=== PATIENT | male | born 1955 | race Caucasian/White ===

== ENCOUNTER 2022-01-20 22:22 | Emergency (ER) | payer MEDICARE, MEDICAID, SELFPAY ==
--- NOTE | ~2022-01-20 | CT_ITS ---
EXAMINATION: CT ABDOMEN AND PELVIS WITHOUT CONTRAST CLINICAL INFORMATION: Left flank and lower abdominal pain COMPARISON: None TECHNIQUE: Multidetector volumetric imaging was performed from the superior aspect of the liver through the pubic symphysis. Sagittal and coronal reformatted images were obtained on the technologist's workstation. This CT examination was performed using dose optimization techniques as appropriate, variously including the following: *Automated exposure control *Adjustment of mA and/or kV according to patient size (this includes techniques or standardized protocols for targeted exams where dose is matched to indication/reason for exam; i.e. extremities or head) *Use of iterative reconstruction technique DLP: 422 mGy-cm FINDINGS: LUNG BASES: The visualized lung bases are unremarkable. LIVER, GALLBLADDER, AND BILIARY TREE: The liver is normal in size, shape, and attenuation. 3 clustered granulomas are seen near the isacc hepatis. No worrisome focal hepatic lesion or biliary ductal dilatation is present. The gallbladder is unremarkable with no evidence of radiopaque gallstones, gallbladder wall thickening, or obvious pericholecystic inflammatory changes. PANCREAS: Unremarkable. SPLEEN: Unremarkable. ADRENAL GLANDS: Unremarkable. KIDNEYS AND URETERS: The kidneys are normal in size, shape, and attenuation. There is a poorly defined water density cyst in the left mid kidney not well seen because of lack of IV contrast. This should require no further follow-up. No hydronephrosis, hydroureter, or calculi seen. No perinephric stranding. BLADDER: Unremarkable. GASTROINTESTINAL TRACT: The small and large bowel are unremarkable. The appendix is unremarkable. ABDOMINAL WALL: No significant hernia is appreciated. LYMPH NODES: No retroperitoneal lymphadenopathy seen. VASCULAR: Marked calcific plaque present in the abdominal aorta and visualized iliofemoral vessels. Calcified plaque also noted at the origins of both renal arteries. PELVIC VISCERA: Prostate is mildly enlarged measuring between 50 and 60 mL. Seminal vesicles appear normal OSSEOUS STRUCTURES: Unremarkable. Mild degenerative changes present throughout the spine. CT/CT abdomen pelvis wo con IMPRESSION: A cause for the patient's left flank and lower abdominal pain has not been found. Incidental note is made of BPH, left water density renal cyst, hepatic granulomas and atherosclerosis. Fleischner guidelines were followed.
[2022-01-20 22:29] VITALS: BP 153/98; PULSE 65; RESP 18; TEMP 36.9; O2SAT 98; BMI 23.6
[2022-01-20 22:42] LABS: MANUAL DIFF FLAG NO
[2022-01-20 22:43] LABS: Basophils Percent Auto 0.5 % (0-2); Eosinophils Absolute Auto 0.1 X10*3/uL (0.0-0.4); Eosinophils Percent Auto 1.4 % (0-4); Hematocrit 42.8 % (42.0-52.0); Hemoglobin 14.5 g/dl (14.0-18.0); Imm Gran Abs Auto 0.03 X10*3/uL (0.00-0.03); Imm Gran Pct Auto 0.5 % (0.0-0.4); Lymphocytes Percent Auto 31.5 % (20-40); Mean Corpuscular HGB Conc 33.9 g/dl (31.0-36.0); Mean Corpuscular Hemoglobin 32.4 pg (27.0-33.0); Mean Corpuscular Volume 95.5 fL (80.0-98.0); Monocytes Absolute Auto 0.5 X10*3/uL (0.1-1.2); Monocytes Percent Auto 7.9 % (2-11); Neutrophils Absolute Auto 3.6 x10*3/uL (2.0-8.3); Neutrophils Percent Auto 58.2 % (45-73); Platelet Count 162 X10*3/uL (160-400); Red Blood Count 4.48 X10*6/uL (4.60-5.80); Red Cell Distribution Width 12.8 % (11.0-16.0); White Blood Count 6.2 X10*3/uL (4.8-10.8)
[2022-01-20 23:00] LABS: Alanine Aminotransferase 17 U/L (0-40); Albumin Level 4.5 g/dL (3.5-5.0); Alkaline Phosphatase 90 U/L (39-117); Anion Gap 15 (12-20); Aspartate Amino Transferase 29 U/L (5-37); Bilirubin Direct 0.3 mg/dL (0.0-0.5); Bilirubin Total 0.8 mg/dL (0.0-1.0); Blood Urea Nitrogen 12 mg/dL (9-16); Calcium 9.6 mg/dL (8.4-10.2); Carbon Dioxide 27 mmol/L (22-29); Chloride 98 mmol/L (96-108); Creatinine Clr Calc Pharmacy 94.9; Estimated Glomerular Filt Rate > 60; Glucose Random 95 mg/dL (60-115); Lipase 84 U/L (8-78); Potassium 3.9 mmol/L (3.3-5.1); Sodium 136 mmol/L (135-145); Total Protein 7.4 g/dL (6.5-8.0)
--- NOTE | 2022-01-20 23:27 | ED_ITS ---
HPI - Abdominal Pain General Chief Complaint: Abdominal Pain Stated Complaint: left lower abd pain Time Seen by Provider: 01/20/22 23:26 Source: patient Mode of arrival: ambulatory Limitations: no limitations History of Present Illness HPI narrative: left lower abdominal pain starting last night. Feels constipated slightly, no fever at home. No testicular pain, no hematuria. Patient has a history of diverticulitis. MD elicited complaint: abdominal pain Pertinent past history: diverticulitis Onset (ago): day(s) Pain Consistency: constant Location: LLQ and L flank Severity: moderate Quality: sharp Exacerbating factors: movement Associated symptoms: denies other symptoms Related Data Previous Rx's Medication Instructions Recorded naproxen 500 mg tablet (Naprosyn) 500 mg PO BID #20 tab 01/21/22 Allergies Allergy/AdvReac Type Severity Reaction Status Date / Time No Known Allergies Allergy Verified 01/20/22 22:29 Review of Systems Constitutional: Reports no additional constitutional complaints Eyes: Reports no additional eye complaints Denies dizziness Cardiovascular: Reports no additional cardiovascular complaints Respiratory: Reports as per HPI Gastrointestinal: Reports no additional gastrointestinal complaints Musculoskeletal: Reports no additional musculoskeletal complaints Skin/Breast: Denies rash Reports system reviewed and no additional complaints, except as documented, Denies dizziness and Denies Sensory deficit (Neuro) Psychiatric: Denies anxiety [facility] Social History Social History Alcohol intake: current Patient Tobacco Use Status: Former Tobacco user Use of substances other than those prescribed or required for medical reasons: No Advance Directives: No Advance Directives Information Provided: No Physical Exam ED Vital Signs: Vital Signs - 24 hr 01/20/22 22:29 01/21/22 00:55 Temperature 98.4 F Pulse Rate 65 54 Respiratory Rate 18 14 Blood Pressure 153/98 H 162/94 H Pulse Oximetry 98 97 BMI result Body Mass Index 23.6 Const General: healthy appearing Nutritional Appearance: average body habitus Orientation/consciousness: oriented to person and patient oriented x3 Limitations: no limitations HENMT Head: Yes normal to inspection Ears: external ears normal General nose exam: Normal external nose present Mouth: Normal oral and palatal mucosa present and oropharynx normal Throat: Yes posterior oropharynx normal Eyes General: appearance normal, both eyes and all related structures Neck Neck: Yes normal visual inspection Chest Chest palpation & inspection: normal inspection of the chest Resp Auscultation: clear to auscultation bilaterally Cardio Jugular venous distension: no JVD Rate: regular rate Rhythm: regular rhythm Heart sounds: S1 normal heart sound present and S2 normal heart sound present GI Other: no real left lower abdominal pain on palpation Inspection: Yes normal to inspection Palpation (GI): Soft to palpation, nontender and No hepatosplenomegaly present Auscultation: normal bowel sounds General: Yes no CVA tenderness Back/Spine/Pelvis Back: no CVA tenderness Skin General skin exam: no rashes or lesions noted Neuro General: oriented to person and patient oriented x3 Cranial nerves: Yes CN's II-XII intact bilaterally Motor exam (neuro): 5/5 motor strength present throughout Sensory Exam: No Sensory deficit (Neuro) Extrem General: Yes normal to inspection Psych Appearance: grossly normal Course Course Course Narrative: A lot of pain with movement but patient states the pain is coming form inside. I will CT to rule out renal colic and diverticulitis. Reevaluation(s) Reevaluation #1: exam was not consistent with diverticultis, CT negative for diverticulitis and renal colic, labs all normal, will dc on nsaids for pain Time: 01:02 MDM - Abdominal Pain Lab Data Result diagrams: 01/20/22 22:37 01/20/22 22:37 Labs: Lab Results 01/20/22 01/20/22 01/20/22 Range/Units 22:37 22:37 23:47 WBC 6.2 (4.8-10.8) X10*3/uL RBC 4.48 L (4.60-5.80) X10*6/uL Hgb 14.5 (14.0-18.0) g/dl Hct 42.8 (42.0-52.0) % MCV 95.5 (80.0-98.0) fL MCH 32.4 (27.0-33.0) pg MCHC 33.9 (31.0-36.0) g/dl RDW 12.8 (11.0-16.0) % Plt Count 162 (160-400) X10*3/uL MPV 9.0 L (9.4-12.4) fL Immature Gran % (Auto) 0.5 H (0.0-0.4) % Neut % (Auto) 58.2 (45-73) % Lymph % (Auto) 31.5 (20-40) % [place] % (Auto) 7.9 (2-11) % Eos % (Auto) 1.4 (0-4) % Baso % (Auto) 0.5 (0-2) % Lymph # (Auto) 2.0 (1.2-4.9) X10*3/uL [place] # (Auto) 0.5 (0.1-1.2) X10*3/uL Eos # (Auto) 0.1 (0.0-0.4) X10*3/uL Baso # (Auto) 0.0 (0.0-0.2) X10*3/uL Abs Immat Gran (auto) 0.03 (0.00-0.03) X10*3/uL Absolute Neuts (auto) 3.6 (2.0-8.3) x10*3/uL Absolute Nucleated RBC 0.000 (0.0-0.012) X10*3/uL Nucleated RBC % (auto) 0.0 (0.0-0.2) /100WBC Sodium 136 (135-145) mmol/L Potassium 3.9 (3.3-5.1) mmol/L Chloride 98 (96-108) mmol/L Carbon Dioxide 27 (22-29) mmol/L Anion Gap 15 (12-20) BUN 12 (9-16) mg/dL Creatinine 0.79 (0.5-1.4) mg/dL Estim Creat Clear Calc 94.9 Estimated GFR > 60 Random Glucose 95 (60-115) mg/dL Calcium 9.6 (8.4-10.2) mg/dL Total Bilirubin 0.8 (0.0-1.0) mg/dL Direct Bilirubin 0.3 (0.0-0.5) mg/dL AST 29 (5-37) U/L ALT 17 (0-40) U/L Alkaline Phosphatase 90 (39-117) U/L Total Protein 7.4 (6.5-8.0) g/dL Albumin 4.5 (3.5-5.0) g/dL Lipase 84 H (8-78) U/L Urine Color STRAW Urine Appearance CLEAR Urine pH 6.0 (5.0-8.0) Ur Specific [place] <= 1.005 (1.005-1.025) Urine Protein NEG (NEG-TRACE) MG/DL Urine Glucose (UA) NEG (NEG) MG/DL Urine Ketones NEG (NEG) MG/DL Urine Blood NEG (NEG) Urine Nitrite NEG (NEG) Ur Leukocyte Esterase NEG (NEG) Imaging Data CT scan - abdomen: Radiologist's impression: CT/CT abdomen pelvis wo con IMPRESSION: A cause for the patient's left flank and lower abdominal pain has not been found. Incidental note is made of BPH, left water density renal cyst, hepatic granulomas and atherosclerosis. ? Fleischner guidelines were followed. Discharge Plan Discharge Clinical Impression: Abdominal pain Patient Disposition: Home, Self-Care Instructions: Abdominal Pain (ED) Prescriptions: New naproxen [Naprosyn] 500 mg tablet 500 mg PO BID Qty: 20 0RF Referrals: Narda Morris PA [Primary Care Provider] - 1 week
[2022-01-20 23:52] LABS: Appearance Urine CLEAR; Color Urine STRAW; Glucose Urine UA NEG (NEG); Leukocyte Esterase Urine NEG (NEG); Nitrite Urine NEG (NEG); Specific Gravity - Urine <= 1.005 (1.005-1.025); Urine Blood NEG (NEG); Urine Ketones NEG (NEG); Urine Protein NEG (NEG-TRACE)
[2022-01-21] MEDS: Ketorolac Tromethamine 30 MG/ML VIAL IVPUSH (00:16)
[2022-01-21] MEDS: 0.9 % Sodium Chloride 1,000 ML 999 ML IVCONT (00:17)
[2022-01-21 00:55] VITALS: BP 162/94; PULSE 54; RESP 14; O2SAT 97
--- NOTE | 2022-01-21 05:24 | PC.NURSE ---
see downtime chart for further nursing notes/VS/meds/times
== END 2022-01-21 05:41 | disposition home or self-care (01) ==
PROVIDERS: Emergency Provider Emergency Medicine; PCP Physician Assistant
DX: R10.9 Unspecified abdominal pain (principal); R93.5 Abnormal findings on diagnostic imaging of other abdominal regions, including retroperitoneum; N40.0 Benign prostatic hyperplasia without lower urinary tract symptoms; Q61.01 Congenital single renal cyst; K75.3 Granulomatous hepatitis, not elsewhere classified; I70.1 Atherosclerosis of renal artery; Z87.891 Personal history of nicotine dependence
CPT/HCPCS: 36415; 74176; 80048; 80076; 81003; 83690; 85025; 96361; 96374; 99284; 99285; J1885

== ENCOUNTER 2023-01-26 12:36 | Inpatient (IN) | payer MEDICARE, MEDICAID, SELFPAY ==
--- NOTE | ~2023-01-26 | CT_ITS ---
EXAMINATION: CT HEAD WITHOUT CONTRAST (STROKE PROTOCOL) CLINICAL INFORMATION: Stroke protocol. Some left-sided extremity symptoms and asphasia. COMPARISON: None TECHNIQUE: Contiguous axial imaging was performed from the skull base to vertex without intravenous administration of contrast. Additional 2-D coronal and sagittal reformatted images are generated on the CT workstation and uploaded to PACS. This CT examination was performed using dose optimization techniques as appropriate, variously including the following: *Automated exposure control *Adjustment of mA and/or kV according to patient size (this includes techniques or standardized protocols for targeted exams where dose is matched to indication/reason for exam; i.e. extremities or head) *Use of iterative reconstruction technique DLP: 719 mGy-cm FINDINGS: There is no intracranial hemorrhage, hematoma, or extra-axial fluid collection. There are mild generalized atrophic changes with prominence of the cortical sulci and fissures and cisterns. The ventricles are normal in size and there is no hydrocephalus. The kam-white matter differentiation appears well preserved . There is a small cystic lacunar infarct left caudate head and mid left basal ganglia without associated surrounding edema or mass effect. Some focal peripheral encephalomalacia is present inferior right frontal region. There is no visible acute territorial infarct or mass lesion. The calvarium appears intact. There is no pneumocephalus or orbital emphysema. There is some mucosal thickening in the posterior maxillary sinuses, greater on right. The middle ears and mastoids are clear. Results called and discussed with Dr. Benoit in the emergency department [place] [address]/CT head for stroke IMPRESSION: 1. No intracranial hemorrhage, edema, or mass effect. 2. Small cystic lacunar infarct left caudate head and mid left basal ganglia. 3. Small focal encephalomalacia inferior right frontal region.
--- NOTE | ~2023-01-26 | MR_ITS ---
EXAMINATION: MR BRAIN WITHOUT CONTRAST CLINICAL INFORMATION: Transient ischemic attack. COMPARISON: CTA head and neck from 01/26/2023. TECHNIQUE: MRI of the brain was obtained using routine sequences without contrast. FINDINGS: No focal restricted diffusion is demonstrated to suggest acute or subacute cerebral ischemia. No evidence of acute or chronic hemorrhagic products on heme-sensitive imaging. Scattered and partially confluent periventricular, deep white matter, and brainstem T2 FLAIR hyperintensities consistent with moderate underlying microangiopathy. Chronic lacunar infarcts of the left caudate body, left lentiform nucleus, and right thalamus. Proportional prominence of the ventricles and sulcal spaces without evidence of obstructive hydrocephalus. No abnormal mass effect. No midline shift. Normal appearance of the pituitary gland. Normal positioning of the cerebellar tonsils. Normal arterial and venous vascular flow voids are present. Normal, homogeneous marrow signal. Mild mucosal thickening of the paranasal sinuses. No signal abnormalities within the mastoids. MR/MR head/brain wo con IMPRESSION: 1. No acute intracranial abnormalities. 2. Moderate underlying microangiopathy and generalized cerebral volume loss. Chronic lacunar infarcts of the deep nuclei.
--- NOTE | ~2023-01-26 | XR_ITS ---
EXAMINATION: XR CHEST CLINICAL INFORMATION: Stroke COMPARISON: None. TECHNIQUE: Portable upright AP view of the chest was obtained. FINDINGS: Lungs clear. No airspace consolidation or effusion. Heart size normal. Vascularity normal. Costophrenic sulci are clear. Hilar and mediastinal contours are unremarkable. There are multilevel degenerative changes thoracic spine. Degenerative changes acromioclavicular joints and shoulders. Calcific tendinosis in region of distal infraspinatus right shoulder. XR/XR chest 1V IMPRESSION: Lungs clear. No acute intrathoracic disease.
--- NOTE | ~2023-01-26 | CT_ITS ---
EXAMINATION: CT angio head neck stroke CLINICAL INFORMATION: Stroke. COMPARISON: CT head 01/26/2023 TECHNIQUE: Laboratory Inspector images were obtained. A CT angiogram of the head and neck was performed in the arterial phase after the intravenous administration of 70 mL Omnipaque 350. Pre and delayed postcontrast images of the head were also obtained. MIP reconstructions were generated in multiple orientations at the acquisition workstation. Multiple three-dimensional surface rendered images and maximum intensity projection images were generated on a dedicated 3-D lab workstation. Arterial stenoses are measured in accordance with NASCET criteria or similar method if applicable. This CT examination was performed using dose optimization techniques as appropriate, including one or more of the following: Automated exposure control, iterative reconstruction, and adjustment of technique factors (mA and/or kVp) according to patient size (this includes techniques or standardized protocols for targeted exams where dose is matched to indication/reason for exam). Fleischner Society criteria for the followup of incidental pulmonary nodules was implemented if appropriate. Total exam dose-length product 1596 mGy-cm FINDINGS: Head: There is a small chronic cortical infarct involving the undersurface of the right frontal lobe and a few small chronic lacunar infarcts involving the basal ganglia. Scattered chronic small vessel ischemic changes are also visualized within the periventricular white matter. Cabrera-white matter differentiation is otherwise preserved and there is no evidence of acute territorial infarct or hemorrhage. No intracranial mass effect or midline shift. No hydrocephalus. The calvarium and skull base are intact. There is a small volume of layering fluid within the right maxillary sinus. CT angiogram neck: Scattered atheromatous calcification involves the aortic arch apex. Origins of the major aortic branches are widely patent. Common carotid arteries are patent. Heavily calcified atheromatous plaque involves both carotid bifurcations. There is 80% stenosis at the origin of the right internal carotid artery. No stenosis of the left extra cranial internal carotid artery. Partially calcified plaque causes high-grade focal narrowing at the origin of the dominant left vertebral artery. Scattered foci of calcified eccentric plaque causes mild irregular narrowing along the V2 segments of both vertebral arteries. CT angiogram head: Scattered atheromatous calcification causes mild to moderate narrowing of the supraclinoid segments of both internal carotid arteries, greater on the left. There is also mild irregular narrowing of the intradural segments of both vertebral arteries. Basilar artery is normal. Anterior, middle, and posterior cerebral complexes are normal. No intracranial large vessel occlusion. Other: Soft tissues of the neck including the thyroid gland are normal. Grossly no pathologically enlarged cervical lymph nodes. There is no acute osseous finding. Specifically no worrisome lytic or blastic osseous lesion. There is advanced multilevel degenerative spondylosis of the cervical spine and there are multiple exuberant anterior disc osteophyte complexes at multiple levels. The C1 and C2 vertebral segments are chronically fused. CT/CT angio head neck stroke IMPRESSION: Heavily calcified atheromatous plaque involves both carotid bifurcations. There is 80% stenosis at the origin of the right internal carotid artery. No stenosis of the left extracranial internal carotid artery. Partially calcified plaque causes high-grade focal narrowing at the origin of the dominant left vertebral artery. Scattered foci of eccentric calcified plaque causes mild irregular narrowing along the V2 segments of both vertebral arteries. There is also mild to moderate irregular narrowing of the supraclinoid segments of both internal carotid arteries, greater on the left. Mild irregular narrowing of the intradural segments of both vertebral arteries. No intracranial large vessel occlusion. There is a small chronic cortical infarct involving the undersurface of the right frontal lobe and a few small chronic lacunar infarcts involving the basal ganglia. Scattered chronic small vessel ischemic changes are also visualized within the periventricular white matter. No evidence of acute territorial infarct or hemorrhage. No abnormal intracranial mass or enhancement. This critical result was discussed with Dr. Benoit at 1:09 PM on 01/26/2023 and it was ascertained that the content and urgency of the report was understood at the time of direct communication.
[2023-01-26 12:46] LABS: Prothrombin Time Whole Bld POC 12.7 sec (11.1-13.5); ~PT, ~INR - Anti Coag Clinic 1.1 (0.9-1.1)
[2023-01-26 12:49] LABS: Glucose, Whole Blood 100 mg/dL (60-115)
--- NOTE | 2023-01-26 12:57 | ECG_ITS ---
Test Reason : STROKE Blood Pressure : / mmHG Vent. Rate : 086 BPM Atrial Rate : 086 BPM P-R Int : 214 ms QRS Dur : 090 ms QT Int : 394 ms P-R-T Axes : 070 050 066 degrees QTc Int : 471 ms Sinus rhythm with 1st degree A-V block Otherwise normal ECG When compared with ECG of 01-JAN-2006 12:31, AK interval has increased Referred By: Senthil Benoit Electronically Signed By:SHEREEN TERRY MD
--- NOTE | 2023-01-26 12:58 | ED_ITS ---
HPI - Syncope General Chief Complaint: Neuro Symptoms/Deficit Stated Complaint: Stroke alert per EMS Time Seen by Provider: 01/26/23 12:56 Source: patient and EMS History of Present Illness HPI narrative: Patient complaining of left arm and leg weakness and numbness sensation. He also complains of some mild difficulty speaking. He noticed the symptoms this morning at 09:30 when he went to get out of bed to go to take shower. Last known well time was approximately 02:00 when he got up to go to the bathroom and stated he was asymptomatic. It is currently 12:50, making last known well time almost 11 hours. No prior history of stroke. He denies any pain. Has a history of a concussion from a fall a few months ago but denies any neurologic deficit from this. Related Data Previous Rx's Medication Instructions Recorded naproxen 500 mg tablet (Naprosyn) 500 mg PO BID #20 tabs 01/21/22 Allergies Allergy/AdvReac Type Severity Reaction Status Date / Time No Known Allergies Allergy Verified 01/20/22 22:29 Review of Systems Constitutional: Comments: Focal weakness as described. No fevers or chills Cardiovascular: Comments: No chest pain or palpitations Respiratory: Comments: No dyspnea or cough Gastrointestinal: Comments: No abdominal pain or nausea or vomiting Musculoskeletal: Comments: No neck back or extremity pain Integumentary/Breasts: Comments: No rash Neurologic: Comments: Left-sided numbness and subjective weakness as described [facility] Social History Social History Alcohol intake: current Patient Tobacco Use Status: Former Tobacco user Advance Directives: No Advance Directives Information Provided: Yes Physical Exam Vital Signs: Vital Signs: Last Vital Signs Temp 97.8 F 01/26/23 13:19 Pulse 79 01/26/23 13:19 Resp 22 H 01/26/23 13:19 BP 188/95 H 01/26/23 13:19 Pulse Ox 97 01/26/23 13:19 O2 Del Method 01/26/23 13:19 BMI result Body Mass Index 26.4 Const: Other: Awake alert. No acute distress HEENT: Other: Normocephalic atraumatic Resp: Other: No respiratory distress. Clear and equal bilaterally GI: Other: Soft nontender nondistended. No pulsatile masses Skin: Other: Warm pink and dry without obvious rash Neuro: Other: No obvious left-sided weakness. He is able to hold his arm out straight without an obvious pronator drift. He is able to lift his left leg off the stretcher without difficulty. He describes subjective weakness however Extrem: Other: No obvious extremity trauma NIH Stroke Scale Internal: Initial- Upon Arrival Time: 13:27 Level of Consciousness: Alert Level of Consciousness Questions: Answers both questions correctly Level of Consciousness Commands: Performs both tasks correctly Best Gaze: Normal Visual: No visual loss Facial Palsy: Normal Motor Arm (Right): No drift Motor Arm (Left): No drift Motor Leg (Right): No drift Motor Leg (Left): No drift Limb Ataxia: Absent Sensory: Normal Best Language: No aphasia Dysarthia: Normal Extinction and Inattention: No abnormality Score: 0 Medications Administered Discontinued Medications Generic Name Dose Route Start Last Admin Trade Name Li PRN Reason Stop Dose Admin Iohexol 100 ml 01/26/23 13:11 01/26/23 13:12 Iohexol 350 Mg/Ml 100 Ml Infus..Btl IV 01/26/23 13:12 70 ml ONCE ONE Administration Medical Decision Making Medical Decision Making MDM Narrative: Patient with left-sided paresthesias and subjective weakness. Differential includes stroke versus intracranial hemorrhage versus peripheral neuropathy. Last known well time was approximately 11 hours prior to arrival. He is not a candidate for thrombolytics therapy but is potentially candidate for endovascular therapy if he has large vessel occlusion. Patient will receive CT scan with without IV contrast. 13:12. CT scan of brain and CT angiography of head and neck show no obvious large vess el occlusions. Patient is out of window for thrombolytics therapy. Await remainder of workup and anticipate hospitalization for further workup including neuro consult and MRI 13:25. Official CT report, angiography, shows multiple areas of stenosis without actionable occlusion. Stroke score is negligible from an objective standpoint, but patient is still subjectively weak and is having increased difficulty ambulating. Continue with current plan 14:07. Neurology in to see patient. Agree with plan. No acute intervention at this time. Patient reports daily alcohol use approximately a pt of hard alcohol. Will add thiamine and folate treatment as well as aspirin. Lab work is unremarkable Will hospitalize for diagnosis of stroke Lab Data 01/26/23 13:34 01/26/23 13:34 Labs: Lab Results 01/26/23 01/26/23 01/26/23 Range/Units 12:41 12:41 13:34 WBC 6.2 (4.8-10.8) X10*3/uL RBC 4.32 L (4.60-5.80) X10*6/uL Hgb 13.9 L (14.0-18.0) g/dl Hct 41.4 L (42.0-52.0) % MCV 95.8 (80.0-98.0) fL MCH 32.2 (27.0-33.0) pg MCHC 33.6 (31.0-36.0) g/dl RDW 12.3 (11.0-16.0) % Plt Count 202 (160-400) X10*3/uL MPV 8.6 L (9.4-12.4) fL Immature Gran % (Auto) 0.5 H (0.0-0.4) % Neut % (Auto) 77.4 H (45-73) % Lymph % (Auto) 11.7 L (20-40) % [place] % (Auto) 8.5 (2-11) % Eos % (Auto) 1.4 (0-4) % Baso % (Auto) 0.5 (0-2) % Lymph # (Auto) 0.7 L (1.2-4.9) X10*3/uL [place] # (Auto) 0.5 (0.1-1.2) X10*3/uL Eos # (Auto) 0.1 (0.0-0.4) X10*3/uL Baso # (Auto) 0.0 (0.0-0.2) X10*3/uL Abs Immat Gran (auto) 0.03 (0.00-0.03) X10*3/uL Absolute Neuts (auto) 4.8 (2.0-8.3) x10*3/uL Absolute Nucleated RBC 0.000 (0.0-0.012) X10*3/uL Nucleated RBC % (auto) 0.0 (0.0-0.2) /100WBC Whole Blood PT 12.7 (11.1-13.5) sec Whole Blood INR 1.1 (0.9-1.1) Sodium (135-145) mmol/L Potassium (3.3-5.1) mmol/L Chloride (96-108) mmol/L Carbon Dioxide (22-29) mmol/L Anion Gap (12-20) BUN (9-16) mg/dL Creatinine (0.5-1.4) mg/dL Estim Creat Clear Calc Estimated GFR POC Glucose 100 (60-115) mg/dL Random Glucose (60-115) mg/dL Calcium (8.4-10.2) mg/dL Total Bilirubin (0.0-1.0) mg/dL AST (5-37) U/L ALT (0-40) U/L Alkaline Phosphatase (39-117) U/L Total Protein (6.5-8.0) g/dL Albumin (3.5-5.0) g/dL COVID-19 ([facility]ARISSA) (Negative) COVID-19 Clin Com 01/26/23 01/26/23 Range/Units 13:34 13:34 WBC (4.8-10.8) X10*3/uL RBC (4.60-5.80) X10*6/uL Hgb (14.0-18.0) g/dl Hct (42.0-52.0) % MCV (80.0-98.0) fL MCH (27.0-33.0) pg MCHC (31.0-36.0) g/dl RDW (11.0-16.0) % Plt Count (160-400) X10*3/uL MPV (9.4-12.4) fL Immature Gran % (Auto) (0.0-0.4) % Neut % (Auto) (45-73) % Lymph % (Auto) (20-40) % [place] % (Auto) (2-11) % Eos % (Auto) (0-4) % Baso % (Auto) (0-2) % Lymph # (Auto) (1.2-4.9) X10*3/uL [place] # (Auto) (0.1-1.2) X10*3/uL Eos # (Auto) (0.0-0.4) X10*3/uL Baso # (Auto) (0.0-0.2) X10*3/uL Abs Immat Gran (auto) (0.00-0.03) X10*3/uL Absolute Neuts (auto) (2.0-8.3) x10*3/uL Absolute Nucleated RBC (0.0-0.012) X10*3/uL Nucleated RBC % (auto) (0.0-0.2) /100WBC Whole Blood PT (11.1-13.5) sec Whole Blood INR (0.9-1.1) Sodium 138 (135-145) mmol/L Potassium 4.3 (3.3-5.1) mmol/L Chloride 100 (96-108) mmol/L Carbon Dioxide 30 H (22-29) mmol/L Anion Gap 12 (12-20) BUN 19 H (9-16) mg/dL Creatinine 0.82 (0.5-1.4) mg/dL Estim Creat Clear Calc 95.9 Estimated GFR > 60 POC Glucose (60-115) mg/dL Random Glucose 92 (60-115) mg/dL Calcium 9.2 (8.4-10.2) mg/dL Total Bilirubin 1.7 H (0.0-1.0) mg/dL AST 31 (5-37) U/L ALT 27 (0-40) U/L Alkaline Phosphatase 102 (39-117) U/L Total Protein 7.3 (6.5-8.0) g/dL Albumin 4.4 (3.5-5.0) g/dL COVID-19 (KARISSA) Negative (Negative) COVID-19 Clin Com See Note Critical Care Time Critical Care Time Critical Care Time: Yes Total Critical Care Time: 60 Attestation: Patient with stroke in thrombolytics consideration as well as potential endovascular consideration. Discharge Plan Discharge Patient Disposition: Admitted As Inpatient Prescriptions: No Action naproxen [Naprosyn] 500 mg tablet 500 mg PO BID Qty: 20 0RF
[2023-01-26] MEDS: iohexoL 350 MG/ML 100 ML INFUS..BTL IV (13:12)
[2023-01-26 13:19] VITALS: BP 188/95; PULSE 79; RESP 22; TEMP 36.6; O2SAT 97; BMI 26.4
[2023-01-26 13:39] LABS: MANUAL DIFF FLAG NO
[2023-01-26 13:41] LABS: Basophils Percent Auto 0.5 % (0-2); Eosinophils Absolute Auto 0.1 X10*3/uL (0.0-0.4); Eosinophils Percent Auto 1.4 % (0-4); Hematocrit 41.4 % (42.0-52.0); Hemoglobin 13.9 g/dl (14.0-18.0); Imm Gran Abs Auto 0.03 X10*3/uL (0.00-0.03); Imm Gran Pct Auto 0.5 % (0.0-0.4); Lymphocytes Absolute Auto 0.7 X10*3/uL (1.2-4.9); Lymphocytes Percent Auto 11.7 % (20-40); Mean Corpuscular HGB Conc 33.6 g/dl (31.0-36.0); Mean Corpuscular Hemoglobin 32.2 pg (27.0-33.0); Mean Corpuscular Volume 95.8 fL (80.0-98.0); Mean Platelet Volume 8.6 fL (9.4-12.4); Monocytes Absolute Auto 0.5 X10*3/uL (0.1-1.2); Monocytes Percent Auto 8.5 % (2-11); Neutrophils Absolute Auto 4.8 x10*3/uL (2.0-8.3); Neutrophils Percent Auto 77.4 % (45-73); Platelet Count 202 X10*3/uL (160-400); Red Blood Count 4.32 X10*6/uL (4.60-5.80); Red Cell Distribution Width 12.3 % (11.0-16.0); White Blood Count 6.2 X10*3/uL (4.8-10.8)
[2023-01-26 13:56] LABS: Alanine Aminotransferase 27 U/L (0-40); Albumin Level 4.4 g/dL (3.5-5.0); Alkaline Phosphatase 102 U/L (39-117); Anion Gap 12 (12-20); Aspartate Amino Transferase 31 U/L (5-37); Bilirubin Total 1.7 mg/dL (0.0-1.0); Blood Urea Nitrogen 19 mg/dL (9-16); Calcium 9.2 mg/dL (8.4-10.2); Carbon Dioxide 30 mmol/L (22-29); Chloride 100 mmol/L (96-108); Creatinine Clr Calc Pharmacy 95.9; Estimated Glomerular Filt Rate > 60; Glucose Random 92 mg/dL (60-115); Potassium 4.3 mmol/L (3.3-5.1); Sodium 138 mmol/L (135-145); Total Protein 7.3 g/dL (6.5-8.0)
[2023-01-26 13:59] LABS: COVID-19 Test Negative (Negative); IDNOW Serial# BCCEAD1C
--- NOTE | 2023-01-26 14:15 | P.CNNE_ITS ---
History of Present Illness Data of Consult Service Date: 01/26/23 Primary Care Provider: ESTHER Cornejo HPI Reason for consult: Dizziness 67 years old man with hypertension who came to hospital with new onset of dizziness and unsteadiness. This started many hours ago. He was considered an acute stroke patient but because of significant time delay he was not considered a candidate for intravenous tPA. Otherwise CTA and CT was done to look at any possible arterial lesion. I saw him in emergency room. He was complaining of abdominal discomfort and nausea. Review of Systems Review of Systems: No recent cold or flu-like illness PMFSH Social History Social History Alcohol intake: current Patient Tobacco Use Status: Former Tobacco user Advance Directives: No Advance Directives Information Provided: Yes Meds Allergies Allergy/AdvReac Type Severity Reaction Status Date / Time No Known Allergies Allergy Verified 01/20/22 22:29 Physical Exam Vital Signs: Vital Signs: Last Vital Signs Temp 97.8 F 01/26/23 13:19 Pulse 79 01/26/23 13:19 Resp 22 H 01/26/23 13:19 BP 188/95 H 01/26/23 13:19 Pulse Ox 97 01/26/23 13:19 O2 Del Method 01/26/23 13:19 BMI result Body Mass Index 26.4 Neuro: Other: He is alert and awake with normal spontaneity of speech fluency comprehension and affect. He is able to name and repeat and read. Face is symmetrical. Visual gunter are full. There is no pronator drift. [id number] is okay. Deep tendon reflexes are trace to absent with flexor plantars. When asked to get out of bed, he felt uncomfortable and could barely stand stating that he was unsteady and his belly was uncomfortable causing nausea. Results Labs 01/26/23 13:34 01/26/23 13:34 Labs: Short CBC 01/26/23 Range/Units 13:34 WBC 6.2 (4.8-10.8) X10*3/uL Hgb 13.9 L (14.0-18.0) g/dl Hct 41.4 L (42.0-52.0) % Plt Count 202 (160-400) X10*3/uL BMP 01/26/23 13:34 Sodium 138 Potassium 4.3 Chloride 100 Carbon Dioxide 30 H BUN 19 H Creatinine 0.82 Calcium 9.2 Liver Function 01/26/23 Range/Units 13:34 Total Bilirubin 1.7 H (0.0-1.0) mg/dL AST 31 (5-37) U/L ALT 27 (0-40) U/L Alkaline Phosphatase 102 (39-117) U/L Albumin 4.4 (3.5-5.0) g/dL Microbiology Microbiology Results: Heavily calcified atheromatous plaque involves both carotid bifurcations. There is 80% stenosis at the origin of the right internal carotid artery. No stenosis of the left extracranial internal carotid artery. Partially calcified plaque causes high-grade focal narrowing at the origin of the dominant left vertebral artery. Scattered foci of eccentric calcified plaque causes mild irregular narrowing along the V2 segments of both vertebral arteries. There is also mild to moderate irregular narrowing of the supraclinoid segments of both internal carotid arteries, greater on the left. Mild irregular narrowing of the intradural segments of both vertebral arteries. No intracranial large vessel occlusion. There is a small chronic cortical infarct involving the undersurface of the right frontal lobe and a few small chronic lacunar infarcts involving the basal ganglia. Scattered chronic small vessel ischemic changes are also visualized within the periventricular white matter. No evidence of acute territorial infarct or hemorrhage. No abnormal intracranial mass or enhancement. Assessment and Plan (1) Dizziness: Status: Acute 67 years old man with hypertension and probably also alcohol use who came to [facility] with new onset of unsteadiness dizziness in abdominal discomfort. Really etiology was unclear. At this time my recommendation is to treat him with thiamine and folate and have a noncontrast MRI of brain to rule out stroke. As far as right carotid disease is concerned, it requires medical treatment, not surgical. Blood pressure controlled, anti-platelet agent, and statins are recommended (2) Right-sided extracranial carotid artery stenosis: Status: Acute Time Spent With Patient Time: Total time managing care of this patient today ____ minutes. Procedures Date of Service Date of Service: 01/26/23
[2023-01-26] MEDS: Ondansetron ODT 4 MG TAB.RAPDIS TRANSLINGU (14:17)
[2023-01-26] MEDS: Aspirin Enteric Coated 325 MG TABLET.DR PO (14:17)
[2023-01-26] MEDS: Folic Acid 1 MG TABLET PO (14:17)
[2023-01-26] MEDS: Thiamine HCL 100 MG TABLET PO (14:17)
--- NOTE | 2023-01-26 14:17 | MHC.STROKE ---
Addendum entered by Terese Sorto RN 01/27/23 14:33: 01/27/23 1330 I MET WITH THE PATIENT AND HIS SON RANDELL TO PROVIDE STROKE EDUCATION AND REVIEW HIS MRI SCREENSHOT AND DIAGNOSIS. DR. CORREA REVIEWED THE MRI AND PUT IN AN ADDENDUM, RIGHT PONTINE ISCHEMIC STROKE. SEE HIS NOTE. I EXPLAINED THIS TO THE PATIENT AND SON, I REVIEWED THE LOCATION OF THE STROKE ON THE MRI IMAGE AND CORRELATING SYMPTOMS. HE HAS HAD UNCONTROLLED HYPERTENSION AND I DISCUSSED AT LENGTH HOW THAT AFFECTS THE BLOOD VESSELS, WE REVIEWED HIS INDIVIDUAL RISK FACTORS, HTN, SMOKING, HYPERLIPIDEMIA, CAROTID STENOSIS. AND WHY HE NEED TO TAKE HIS MEDICATIONS AND FOLLOW UP WITH HIS PCP AND VASCULAR SURGEON. I REVIEWED PICTURES AND DIAGRAMS OF THE BRAIN AND CAROTID. WE REVIEWED SMOKING CESSATION OPTIONS BUT HE DIDN'T WANT THE NICOTINE PATCH, I ENCOURAGED HIM TO TAKE ALL THE RESOURCES HE CAN. WE REVIEWED CALLING 911 IF SYMPTOMS REOCCUR, HOW HYPOTENSION OR HYPERTENSION AFFECTS HIS SYMPTOMS. I ANSWERED ALL OF THEIR QUESTIONS. I REVIEWED THIS WITH THE RN, BOX PRINTING MACHINE OPERATOR MIRNA AND ESTHER VICKERS. HIS SON LIVES IN [facility]. AND THEY WOULD LIKE TO GO TO [place]. I DID EXPLAIN THAT HE WOULD NEED SNEAKERS, AND CLOTHES, REHAB WILL GIVE HIM THE BEST RECOVERY OPTIONS. Original Note: 1232 [facility] CALLED IN STROKE ALERT LEFT SIDED NUMB/WEAK, SLURRED SPEECH DISCOVERED AT 09:30, ARRIVED AT [facility] 1236, STAT CT, CTA DIRECT TO CT ON EMS STRETCHER. 1256 EXAMINED BY PROVIDER, CARO 0200, DISCOVERY OF SYMPTOMS 09:30, NIHSS = 0. SEE ED PROVIDER NOTE, CT DONE 1247, READ 1303 NO BLEED, OLD PRIOR STROKES, CTA H/N DONE 1252, READ AT 1309, NO LVO, HIGH GRADE STENOSIS LEFT VERTEBRAL, DIPAK CAROTID RIGHT ICA 80%, SEE RADIOLOGY REPORT. I ALSO MET WITH THE PATIENT ALONG WITH NEUROLOGIST DR. CORREA, LEFT HANDED (RIGHT SIDE DOMINATE), SPEECH IMPROVED, NO DEFICIT PASSED NURSING SWALLOW SCREEN I UPDATED MICHELLE BANKS, C/O LEFT SIDED NUMBNESS AND SLIGHT DECREASED STRENGTH. HE WAS ABLE TO SIT UP ON EDGE OF THE STRETCHER BUT OFF BALANCE, ATAXIA WHEN STANDING, TOO OFF BALANCE TO WALK, HE IS HYPERTENSIVE, HE DOES NOT TAKE ANY MEDICATIONS, HE SMOKES DAILY, + ETOH ADMITS TO A PINT OF HARD LIQUOR DAILY. DR. CORREA AGREES WITH NO THROMBOLYTICS, UNCLEAR ONSET TIME, DELAY IN ARRIVAL. HE ALSO SAID HE FELL AND HIT HIS HEAD RECENTLY AND HAD A CONCUSSION, HE DID NOT SEEK MEDICAL ATTENTION. HE ALSO HAD A SERIOUS FALL IN [place] 11 YEARS AGO AND WAS HOSPITALIZED WITH A HEAD INJURY AND REQUIRED STITCHES. HIS EX- AND FRIEND CAME TO SEE HIM. I INITIATED STROKE EDUCATION, REVIEWED THE PLAN OF CARE WITH HIM, ANSWERED ALL OF HIS QUESTIONS. REVIEWING TIMELINE AND HE SAID HE GOT UP AT 0200 AND WAS FINE, THEN WENT BACK TO BED, HE WOKE AT 0700 AND THOUGHT HE FELT OK, HE DECIDED TO TAKE A SHOWER HAD HAD DIFFICULTY GETTING INTO THE SHOWER AND COULDN'T MANIPULATE HIS LEFT SIDE. DR. CORREA AND I ARE RECOMMENDING ADMISSION WITH SALES PERFORMANCE MANAGER, ASPIRIN, THIAMINE, FOLATE NOW (MESSAGE SENT TO DR. MOYA), MRI, ECHO, STATIN, ASPIRIN, VTE PROPHYLAXIS, PT, OT, ETOH COUNSELING AND SMOKING CESSATION EDUCATION AND NICOTINE PATCH IF INDICATED. I RICARDO CONTINUE TO FOLLOW.
--- NOTE | 2023-01-26 14:56 | PHA.MEDREC ---
Pharmacy Consult ? Medication Reconciliation Pharmacy has completed the medication reconciliation. Patient confirmed medications. Reports usually takes gabapentin every night and takes it through out the day on occasion to help get relaxed Faith Gutierrez, DarellD
--- NOTE | 2023-01-26 15:18 | P.HPHOSP_ITS ---
History of Present Illness Date of Service: 01/26/23 Chief Complaint: weakness 67-year-old man presenting to the ER with left upper lower extremity weakness and numbness and mild speech difficulties that were noted at 09:30 this morning when he got out of bed. Reports that his last known well time was at 02:00 when he got out of bed to go to the bathroom. Patient denied chest pain, shortness breath, nausea, vomiting, diarrhea, recent travel, sick contacts. Because patient was 11 hours past known well time he was not a candidate for tPA. In the ER, labs all noted to be within acceptable limits, elevated blood pressure readings noted. Head and neck CTA completed, 80% stenosis of the right internal carotid artery noted with small chronic cortical infarctions with no evidence of acute infarct or hemorrhage. He was given a dose of aspirin, Zofran, thiamine, folic acid in the ER. He will be placed on observation for TIA. Review of Systems Review of Systems: Denies any recent fever chills or decrease in appetite respiratory denies any shortness of breath coverage production cardiovascular is adjustment of any PND or edema gastrointestinal denies any dysphagia abdominal pain nausea vomiting or diarrhe a genitourinary denies any dysuria frequency or hematuria musculoskeletal denies any joint pain or swelling neuropsych denies any weakness or seizures all other systems reviewed are negative [facility] Medical History (Updated 01/26/23 @ 15:40 by Chandler Smalls) No known health problems Social History Alcohol intake: current Alcohol intake frequency: 0-2 drinks per day Alcohol type: hard liquor Patient Tobacco Use Status: Current everyday Tobacco user Smoked in Last 30 Days: Yes Use of substances other than those prescribed or required for medical reasons: Yes Substance Use Type: Marijuana Advance Directives: No Advance Directives Information Provided: Yes Nutrition Risks: No Nutritional Risk Meds Allergies Allergy/AdvReac Type Severity Reaction Status Date / Time No Known Allergies Allergy Verified 01/20/22 22:29 Active Medications: Current Medications Acetaminophen (Acetaminophen 325 Mg Tablet) 650 mg PO Q6H PRN PRN Reason: Pain, Mild (Pain Scale 1-3) Ondansetron HCl (Ondansetron Hcl 4 Mg/2 Ml Vial) 4 mg IVPUSH Q8H PRN PRN Reason: Nausea and Vomiting Sodium Chloride (0.9 % Sodium Chloride Flush 3 Ml Syringe) 3 ml IVFSH QSHIFT TRACEY Home Medications Medication Instructions Recorded Confirmed Last Taken Type gabapentin 800 mg tablet 1 tab PO BEDTIME 01/26/23 01/26/23 01/25/23 History gabapentin 800 mg tablet 1 tab PO BID@0900,1200 PRN Anxiety 01/26/23 01/26/23 01/25/23 History Physical Exam Vital Signs and Narrative: Vital Signs: Last Vital Signs Temp 97.8 F 01/26/23 13:19 Pulse 79 01/26/23 13:19 Resp 22 H 01/26/23 13:19 BP 188/95 H 01/26/23 13:19 Pulse Ox 97 01/26/23 13:19 O2 Del Method 01/26/23 13:19 BMI result Body Mass Index 26.4 Results Labs 01/26/23 13:34 01/26/23 13:34 Labs: Laboratory Results - last 24 hr 01/26/23 01/26/23 01/26/23 12:41 12:41 13:34 MCV 95.8 MCH 32.2 MCHC 33.6 RDW 12.3 Plt Count 202 MPV 8.6 L Immature Gran % (Auto) 0.5 H Neut % (Auto) 77.4 H Lymph % (Auto) 11.7 L Teller % (Auto) 8.5 Eos % (Auto) 1.4 Baso % (Auto) 0.5 Lymph # (Auto) 0.7 L Teller # (Auto) 0.5 Eos # (Auto) 0.1 Baso # (Auto) 0.0 Abs Immat Gran (auto) 0.03 Absolute Neuts (auto) 4.8 Absolute Nucleated RBC 0.000 Nucleated RBC % (auto) 0.0 Whole Blood PT 12.7 Whole Blood INR 1.1 Anion Gap Estim Creat Clear Calc Estimated GFR POC Glucose 100 Random Glucose Calcium Total Bilirubin AST ALT Alkaline Phosphatase Total Protein Albumin COVID-19 ([facility]) COVID-19 Clin Com 01/26/23 01/26/23 13:34 13:34 MCV MCH MCHC RDW Plt Count MPV Immature Gran % (Auto) Neut % (Auto) Lymph % (Auto) Teller % (Auto) Eos % (Auto) Baso % (Auto) Lymph # (Auto) Teller # (Auto) Eos # (Auto) Baso # (Auto) Abs Immat Gran (auto) Absolute Neuts (auto) Absolute Nucleated RBC Nucleated RBC % (auto) Whole Blood PT Whole Blood INR Anion Gap 12 Estim Creat Clear Calc 95.9 Estimated GFR > 60 POC Glucose Random Glucose 92 Calcium 9.2 Total Bilirubin 1.7 H AST 31 ALT 27 Alkaline Phosphatase 102 Total Protein 7.3 Albumin 4.4 COVID-19 ([facility]ISSA) Negative COVID-19 Clin Com See Note Imaging Radiologist's Impressions: Impressions Head CT 01/26/23 12:55 IMPRESSION: 1. No intracranial hemorrhage, edema, or mass effect. 2. Small cystic lacunar infarct left caudate head and mid left basal ganglia. 3. Small focal encephalomalacia inferior right frontal region. Head/Neck CTA 01/26/23 13:02 IMPRESSION: Heavily calcified atheromatous plaque involves both carotid bifurcations. There is 80% stenosis at the origin of the right internal carotid artery. No stenosis of the left extracranial internal carotid artery. Partially calcified plaque causes high-grade focal narrowing at the origin of the dominant left vertebral artery. Scattered foci of eccentric calcified plaque causes mild irregular narrowing along the V2 segments of both vertebral arteries. There is also mild to moderate irregular narrowing of the supraclinoid segments of both internal carotid arteries, greater on the left. Mild irregular narrowing of the intradural segments of both vertebral arteries. No intracranial large vessel occlusion. There is a small chronic cortical infarct involving the undersurface of the right frontal lobe and a few small chronic lacunar infarcts involving the basal ganglia. Scattered chronic small vessel ischemic changes are also visualized within the periventricular white matter. No evidence of acute territorial infarct or hemorrhage. No abnormal intracranial mass or enhancement. This critical result was discussed with Dr. Benoit at 1:09 PM on 01/26/2023 and it was ascertained that the content and urgency of the report was understood at the time of direct communication. Chest X-Ray 01/26/23 14:00 IMPRESSION: Lungs clear. No acute intrathoracic disease. Assessment and Plan (1) Cerebrovascular accident: Status: Acute Plan 67-year-old man admitted with TIA with left arm and left leg weakness and numbness. TIA Head and neck CTA showing chronic infarction with 80% stenosis Vascular surgery consultation Echocardiogram MRI Aspirin, statin Neurology consultation Elevated blood pressure reading Allow permissive hypertension for now DVT prophylaxis with mechanical compression boots Attending Dr. Chamberlain Full code Time Spent With Patient Time: Total time managing care of this patient today ____ minutes. Quality Stroke Does the patient have a stroke diagnosis?: Yes Reason for No Anti-thrombotic by Day Two: N/A - Med Ordered VTE Prior VTE?: No VTE Risk Level:: Medical - moderate - high VTE Device Contraindication: N/A - Device Ordered VTE Drug Contraindication: Treatment Not Indicated
[2023-01-26 16:10] VITALS: BP 170/94; PULSE 59; RESP 18; O2SAT 96
--- NOTE | 2023-01-26 16:11 | PC.NURSE ---
pt a&ox3, vss - hypertensive, MRI screening form sent - per [facility] W[employer]ER REPAIR ok for pt to go to MRI w/o monitoring. pt passed swallow eval, stroke education provided. urine sample obtained, no new orders at this time.
[2023-01-26] MEDS: 0.9 % Sodium Chloride Flush 3 ML SYRINGE IVFLUSH ×2 (16:12→20:04)
[2023-01-26 16:16] LABS: Appearance Urine Clear; Color Urine Yellow; Glucose Urine UA Negative (Negative); Leukocyte Esterase Urine Negative (Negative); Nitrite Urine Negative (Negative); PH 7.5 (5.0-9.0); Specific Gravity - Urine >= 1.030 (1.005-1.025); UMIC TRIGGER UACC YES; Urine Blood Negative (Negative); Urine Ketones Trace mg/dL (Negative); Urine Protein 30 (1+) mg/dL (Neg-Trace)
[2023-01-26 16:21] LABS: Bacteria Urine None Seen (None Seen); Hyaline Casts Urine 0-2 /LPF (0-2); RBC Urine 0-2 /HPF (0-2); Squamous Epithelial Cell Urine 0-2 /HPF (0-2); WBC Urine 0-5 /HPF (0-5)
--- NOTE | 2023-01-26 16:28 | PC.NURSE ---
pt to MRI.
--- NOTE | 2023-01-26 17:38 | PC.NURSE ---
RN-RN report called into [facility].
[2023-01-26 18:41] VITALS: BP 180/97; PULSE 69; RESP 19; TEMP 36.3; O2SAT 96
--- NOTE | 2023-01-26 18:45 | PC.NURSE ---
Pt alert and oriented x4. Pt admitted to rm 461 with a diagnosis of TIA. Pt has a very slight numbness to the left side but he states that is discipating slowly. + Pedal pulses. NSR on tele. Pt is hypertensive with BP in the 180s. LBM 01/26/23. LS clear but dim with rhonchi to the bases.
[2023-01-26 19:45] VITALS: BP 163/80; PULSE 62; RESP 18; TEMP 36.5; O2SAT 96
[2023-01-26] MEDS: Gabapentin 400 MG CAPSULE 800 MG PO (20:04)
[2023-01-26] MEDS: Atorvastatin Calcium 80 MG TABLET PO (20:04)
[2023-01-27] VITALS: BP 166/81; PULSE 52; RESP 18; TEMP 37; O2SAT 97
[2023-01-27 03:18] VITALS: BP 154/85; PULSE 52; RESP 20; TEMP 37; O2SAT 94
[2023-01-27 06:33] LABS: Alanine Aminotransferase 25 U/L (0-40); Alkaline Phosphatase 78 U/L (39-117); Anion Gap 13 (12-20); Aspartate Amino Transferase 28 U/L (5-37); Bilirubin Total 2.3 mg/dL (0.0-1.0); Blood Urea Nitrogen 13 mg/dL (9-16); Calcium 9.2 mg/dL (8.4-10.2); Carbon Dioxide 27 mmol/L (22-29); Chloride 101 mmol/L (96-108); Creatinine Clr Calc Pharmacy 107.7; Estimated Glomerular Filt Rate > 60; Glucose Random 93 mg/dL (60-115); Sodium 137 mmol/L (135-145); Total Protein 6.5 g/dL (6.5-8.0)
[2023-01-27 06:35] LABS: Cholesterol 184 mg/dL; HDL Cholesterol 68 mg/dL; LDL Cholesterol Calculated 90 mg/dl; Triglycerides 130 mg/dL
--- NOTE | 2023-01-27 07:00 | CA_ITS ---
Transthoracic Echocardiogram Patient (Last, First, Middle): Castillo Dempsey, Gender: Male Date of : 1955 Age: 67 Procedure Date: 01/27/2023 Procedure Type: Transthoracic [place]ocardiogram [place] [facility] [place] [facility] [place]: 182.88 cm Weight: 88.45 kg BSA: 2.11 m2 Heart Rate: 51 bpm BP: 188 / 95 mmHg Motion Study Technician: SB Referring MD: Connie Suero NP Symptoms: TIA Study Quality: Adequate ECG Rhythm: Bradycardia Conclusions: - 1. Normal LV systolic and diastolic function 2. Normal cardiac valvular Doppler 3. Normal RV systolic pressure 4. No gross pericardial effusion Findings Left Ventricle Normal left ventricular size, thickness, and systolic function. The visually estimated ejection fraction is between 65-70%. There is no evidence of regional wall motion abnormalities. Spectral Doppler is indicative of a normal filling pattern. Peak GLS is -17.5%, within normal limits Right Ventricle Normal right ventricular cavity size and systolic function. Atria Both atria are normal in size. There is lipomatous hypertrophy of the interatrial septum. Interatrial shunt cannot be excluded. Aortic Valve Normal aortic valve structure and function. There is no aortic valve stenosis. There is no aortic valve regurgitation. Mitral Valve Normal mitral valve structure and function. There is trace mitral valve regurgitation. There is no mitral valve stenosis. Pulmonic Valve The pulmonic valve is likely normal. Tricuspid Valve Normal tricuspid valve structure. There is trace tricuspid valve regurgitation. The right ventricular systolic pressure is normal. The right ventricular systolic pressure is 23 mmHg. Normal right atrial pressure. There is no evidence of pulmonary hypertension. Great Vessels The pulmonary artery was not well visualized. There is no dilatation of the ascending aorta. Venous The inferior vena cava is normal in size and collapses greater than 50% with inspiration. Pericardium/Pleural There is no evidence of pericardial effusion. Prior Study Comparison No prior study available for comparison. Recommendations, Care & Conclusions Recommend contrast study to evaluate intracardiac shunting. Measurements 2D Linear Measurements IVSd: 1.23 0.6-0.9/0.6-1.0 cm LVIDd: 4.84 3.9-5.3/4.2-5.9 cm LVIDd Index: 2.29 2.4-3.2/2.2-3.1 cm/m2 LVIDs: 3.09 2.0-3.6 cm LVPWd: 0.84 0.7-1.1 cm LA Diam: 3.50 2.7-3.8/3.0-4.0 cm LAIDs Index: 1.66 1.5-2.3 cm/m2 LV Mass: 251.80 67-162/88-224 g LV Mass Index: 119.34 43-95/49-115 g/m2 LVOT Diam: 2.30 3.0+(-)1.3 cm 2D Systolic Function EF 4C: 73.70 >55% EF 2C: 67.30 >55% Mitral Valve MV Pk E: 0.57 MV PK A: 0.49 MV Decel Time: 396.00 E/A: 1.20 E'Lateral: 7.94 E'Medial: 5.33 E/E' Med: 10.70 E/E' Lat: 7.20 PHT: 116.00 MVA PHT: 1.90 Decel Wetzel: 1.44 Aortic Valve AoV Pk Connor: 1.19 AoV Pk Grad: 6.00 DANELLE: 3.54 LVOT LVOT Pk Connor: 0.94 LVOT Mn Connor: 0.66 LVOT VTI: 0.21 LVOT Pk Grad: 4.00 LVOT Mn Grad: 2.00 LVOT Diam: 2.30 LVOT Area: 4.15 Diastolic Function MV Pk E: 0.57 MV Pk A: 0.49 E/A: 1.20 E'Medial: 5.33 E/E' Med: 10.70 E' Laterial: 7.94 E/E' Lat: 7.20 Right Ventricle TAPSE (mm): 25.20 TVS' Connor: 13.60 Tricuspid Valve TR Pk Connor: 2.23 TR Pk Grad: 20.00 RA Press: 3.00 RVSP: 23.00 Great Vessels Aorta Sinus of Valsalva: 3.70 2.0-3.5 cm Ao Asc: 3.60 2.1-3.4 cm Pulmonary Veins Pulm Vein S/D 1.80 Pulmonary Valve PV Pk Connor: 0.90 Peak PV Grad: 3.00 Updated in Other Vendor System with Status of Final Paramjit Rivera MD electronically signed on 01/27/2023 3:27:30 PM with status of Final
[2023-01-27] MEDS: 0.9 % Sodium Chloride Flush 3 ML SYRINGE IVFLUSH ×2 (07:22→15:35)
[2023-01-27] MEDS: Aspirin 81 MG TAB.CHEW PO (07:22)
[2023-01-27 07:48] VITALS: BP 142/80; PULSE 63; RESP 12; TEMP 36.4; O2SAT 95
--- NOTE | 2023-01-27 09:02 | MHC.CM.PN ---
Addendum entered by Zora Banerjee 01/27/23 14:25: [facility] DELIVERED PT/OT REC. ACUTE REHAB. PT CHOOSES BED AT [facility]. [facility] CAN OFFER A BED 3/3. SON/HCP RANDELL ALSO IN AGREEMENT WITH PLAN. Original Note: [facility] DELIVERED PT LIVES ALONE IN AN APT. INDEPENDENT AT BASELINE, NO SERVICES. + COVID VAX X2 WITH [facility] NO HCP BUT WOULD LIKE TO COMPLETE ONE WHILE HERE. PCP OLIVIA MARTINEZ AT [facility] [place] IN [facility]. DP: HOME, PT OPEN TO SERVICES IF REC. FAMILY FRIEND WILL TRANSPORT HOME. CM WILL CONTINUE TO FOLLOW.
[2023-01-27 11:23] VITALS: BP 130/61; PULSE 52; RESP 16; TEMP 36.8; O2SAT 98
--- NOTE | 2023-01-27 12:09 | HO.PM.IMPN ---
Subjective Subjective Date of Service: 01/27/23 Interval History: seen and examined this morning follow up for dizziness, left side numbness Reporting persistent left-sided numbness as well as dizziness, feeling off balance denies alcohol withdrawal related complaints including anxiety, sweating Review of Systems Review of Systems: Yes all other systems are reviewed and are negative Constitutional Constitutional: Denies chills and Denies fever(s) Cardiovascular Cardiovascular: Denies chest pain, Denies palpitations and Denies dyspnea Respiratory Respiratory: Denies cough and Denies dyspnea Gastrointestinal Gastrointestinal: Denies abdominal pain, Denies nausea and Denies vomiting Endocrine Endocrine: Denies palpitations Physical Exam Vital Signs: Vital Signs: Last Vital Signs Temp 98.2 F 01/27/23 11:23 Pulse 52 01/27/23 11:23 Resp 16 01/27/23 11:23 BP 130/61 01/27/23 11:23 Pulse Ox 98 01/27/23 11:23 O2 Del Method 01/27/23 11:23 BMI result Body Mass Index 26.4 Const: General: cooperative, comfortable, alert and awake Nutritional Appearance: average body habitus Orientation/consciousness: patient oriented x3 Resp: Effort & Inspection: normal respiratory effort and able to speak in complete sentences Cardio: Rate: regular rate Heart sounds: S1 normal heart sound present and S2 normal heart sound present GI: Inspection: No distended Palpation (GI): Soft to palpation Neuro: General: patient oriented x3 Cranial nerves: Yes Normal facial strength present and Yes Midline tongue present Objective Data Active Medications Acetaminophen (Acetaminophen 325 Mg Tablet) 650 mg PO Q6H PRN PRN Reason: Pain, Mild (Pain Scale 1-3) Aspirin (Aspirin 81 Mg Tab.Chew) 81 mg PO DAILY [facility] Last Admin: 01/27/23 07:22 Dose: 81 mg Documented By: JOSS Atorvastatin Calcium (Atorvastatin Calcium 80 Mg Tablet) 80 mg PO BEDTIME [facility] Last Admin: 01/26/23 20:04 Dose: 80 mg Documented By: SHELTON Gabapentin (Gabapentin 400 Mg Capsule) 800 mg PO BEDTIME [facility] Last Admin: 01/26/23 20:04 Dose: 800 mg Documented By: SHELTON Gabapentin (Gabapentin 400 Mg Capsule) 800 mg PO BID@0900,1200 PRN PRN Reason: Anxiety Nicotine (Nicotine 14 Mg Patch.Td24) 14 mg TRANSDERMA DAILY [facility] Last Admin: 01/27/23 07:23 Dose: Not Given Documented By: JOSS Non-Admin Reason: Patient Refused Ondansetron HCl (Ondansetron Hcl 4 Mg/2 Ml Vial) 4 mg IVPUSH Q8H PRN PRN Reason: Nausea and Vomiting Sodium Chloride (0.9 % Sodium Chloride Flush 3 Ml Syringe) 3 ml IVFLUSH QSHIFT [facility] Last Admin: 01/27/23 07:22 Dose: 3 ml Documented By: JOSS Labs 01/26/23 13:34 01/27/23 05:45 Labs: Laboratory Results - last 24 hr 01/26/23 01/26/23 01/26/23 12:41 12:41 13:34 MCV 95.8 MCH 32.2 MCHC 33.6 RDW 12.3 Plt Count 202 MPV 8.6 L Immature Gran % (Auto) 0.5 H Neut % (Auto) 77.4 H Lymph % (Auto) 11.7 L Coleman % (Auto) 8.5 Eos % (Auto) 1.4 Baso % (Auto) 0.5 Lymph # (Auto) 0.7 L Coleman # (Auto) 0.5 Eos # (Auto) 0.1 Baso # (Auto) 0.0 Abs Immat Gran (auto) 0.03 Absolute Neuts (auto) 4.8 Absolute Nucleated RBC 0.000 Nucleated RBC % (auto) 0.0 Whole Blood PT 12.7 Whole Blood INR 1.1 Anion Gap Estim Creat Clear Calc Estimated GFR POC Glucose 100 Random Glucose Calcium Total Bilirubin AST ALT Alkaline Phosphatase Total Protein Albumin Triglycerides Cholesterol LDL Cholesterol, Calc HDL Cholesterol Urine Color Urine Appearance Urine pH Ur Specific [place] Urine Protein Urine Glucose (UA) Urine Ketones Urine Blood Urine Nitrite Ur Leukocyte Esterase Urine RBC Urine WBC Ur Squamous Epith Cells Urine Bacteria Hyaline Casts COVID-19 ([facility]) COVID-19 Clin Com 01/26/23 01/26/23 01/26/23 13:34 13:34 16:06 MCV MCH MCHC RDW Plt Count MPV Immature Gran % (Auto) Neut % (Auto) Lymph % (Auto) Coleman % (Auto) Eos % (Auto) Baso % (Auto) Lymph # (Auto) Coleman # (Auto) Eos # (Auto) Baso # (Auto) Abs Immat Gran (auto) Absolute Neuts (auto) Absolute Nucleated RBC Nucleated RBC % (auto) Whole Blood PT Whole Blood INR Anion Gap 12 Estim Creat Clear Calc 95.9 Estimated GFR > 60 POC Glucose Random Glucose 92 Calcium 9.2 Total Bilirubin 1.7 H AST 31 ALT 27 Alkaline Phosphatase 102 Total Protein 7.3 Albumin 4.4 Triglycerides Cholesterol LDL Cholesterol, Calc HDL Cholesterol Urine Color Yellow Urine Appearance Clear Urine pH 7.5 Ur Specific [place] >= 1.030 H Urine Protein 30 (1+) H Urine Glucose (UA) Negative Urine Ketones Trace Urine Blood Negative Urine Nitrite Negative Ur Leukocyte Esterase Negative Urine RBC 0-2 Urine WBC 0-5 Ur Squamous Epith Cells 0-2 Urine Bacteria None Seen Hyaline Casts 0-2 COVID-19 ([facility]) Negative COVID-19 Clin Com See Note 01/27/23 01/27/23 05:45 05:45 MCV MCH MCHC RDW Plt Count MPV Immature Gran % (Auto) Neut % (Auto) Lymph % (Auto) Coleman % (Auto) Eos % (Auto) Baso % (Auto) Lymph # (Auto) Coleman # (Auto) Eos # (Auto) Baso # (Auto) Abs Immat Gran (auto) Absolute Neuts (auto) Absolute Nucleated RBC Nucleated RBC % (auto) Whole Blood PT Whole Blood INR Anion Gap 13 Estim Creat Clear Calc 107.7 Estimated GFR > 60 POC Glucose Random Glucose 93 Calcium 9.2 Total Bilirubin 2.3 H AST 28 ALT 25 Alkaline Phosphatase 78 Total Protein 6.5 Albumin 4.0 Triglycerides 130 Cholesterol 184 LDL Cholesterol, Calc 90 HDL Cholesterol 68 Urine Color Urine Appearance Urine pH Ur Specific [place] Urine Protein Urine Glucose (UA) Urine Ketones Urine Blood Urine Nitrite Ur Leukocyte Esterase Urine RBC Urine WBC Ur Squamous Epith Cells Urine Bacteria Hyaline Casts COVID-19 ([facility]) COVID-19 Clin Com Assessment and Plan (1) Right-sided extracranial carotid artery stenosis: Status: Acute (2) Dizziness: Status: Acute Plan 67-year-old man admitted with TIA with left arm and left leg weakness and numbness. Dizziness/Left side numbness Head and neck CTA showing chronic infarction with 80% stenosis MRI with chronic changes echo pending Vascular surgery consultation Aspirin, statin Seen by neuro Neurology eval by PT/OT - rec acute rehab Elevated blood pressure reading initially allowed for permissive hypertension - bp seems to be improving will follow closely daily alcohol use no evidence of alcohol withdrawal ciwa 0 addiction medicine consult pending will add thiamine, folate supplementation Tobacco dependence NRT probably neuropathy continue gabapentin DVT prophylaxis with mechanical compression boots Attending Dr. Chamberlain Full code Time Spent With Patient Time: Total time managing care of this patient today ____ minutes. Quality Stroke Does the patient have a stroke diagnosis?: Yes Reason for No Anti-thrombotic by Day Two: N/A - Med Ordered VTE Prior VTE?: No VTE Risk Level:: Medical - moderate - high VTE Device Contraindication: N/A - Device Ordered VTE Drug Contraindication: Treatment Not Indicated
[2023-01-27] MEDS: Clopidogrel Bisulfate 75 MG TABLET PO (12:41)
[2023-01-27] MEDS: Thiamine HCL 100 MG TABLET PO (12:42)
[2023-01-27] MEDS: Folic Acid 1 MG TABLET PO (12:42)
--- NOTE | 2023-01-27 13:09 | PM.CNGS ---
History of Present Illness Consult details Consult date: 01/27/23 Narrative: Very pleasant 67-year-old gentleman presents for evaluation regarding carotid stenosis. He had originally presented to the hospital with an episode of garbled speech left arm and leg weakness. He does have a clear inciting event where he reports that it was between 9 and 930 in the morning and he was to taking a shower and he clearly felt a weakness in that left arm and leg. He subsequently presented to the hospital and was worked up. He has been seen by Neurology and was noted on CT angiogram to have high-grade right carotid stenosis. He now presents for evaluation. Of note he does smoke about a half a pack per day and in addition he does have a significant drinking history is unclear how much he drinks but he does have at least 2-3 drinks daily. Review of Systems Review of Systems: Yes all other systems are reviewed and are negative Constitutional: Constitutional: Reports no additional constitutional complaints ENT: Reports Normal hearing present Cardiovascular: Cardiovascular: Denies chest pain, Denies chest pain at rest, Denies chest pain with activity and Denies pedal edema Respiratory: Respiratory: Denies cough Gastrointestinal: Gastrointestinal: Denies abdominal pain Musculoskeletal: Musculoskeletal: Denies abnormal gait, Denies muscle cramps and Denies radiating pain into limb Integumentary/Breasts: Skin/Breast: Denies skin ulcer and Denies wounds Neurologic: Reports Normal hearing present and Denies abnormal gait Psychiatric: Psychiatric: Reports no additional psychiatric complaints PMFSH Past Medical History Medical History No known health problems Social History Social History Household Members: None Housing: Apartment Do you presently have visiting nurse or other home services: No Alcohol intake: current Alcohol intake frequency: 0-2 drinks per day Alcohol type: hard liquor Patient Tobacco Use Status: Current everyday Tobacco user Tobacco use type: Cigarette Smoked in Last 30 Days: Yes e-Cigarette/Vaping Use: Currently Using Patient Interested in Nicotine Replacement: No Patient Given Instructions on How to Stop Smoking: Yes Date Education Initiated: 01/26/23 Second Hand Smoke Exposure: No Use of substances other than those prescribed or required for medical reasons: No Substance Use Type: Marijuana Currently Displaying Signs/Symptoms of Drug Intoxication Withdrawal: No Have you been hit, kicked, punched, or otherwise hurt by someone within the past year? If so, by whom?: No Do you feel safe in your current relationship?: Yes Is there a partner from a previous relationship who is making you feel unsafe now?: No Are you made to feel afraid or neglected: No Advance Directives: No Advance Directives Information Provided: Yes Advance Directives on File: No Do you have thoughts of harming others: None Do you have a plan to hurt others: No Plan Recently lost weight without trying: No Eating poorly because of decreased appetite: No Nutrition Risks: No Nutritional Risk service: No Current occupational status: retired [employer] Allergies Allergy/AdvReac Type Severity Reaction Status Date / Time No Known Allergies Allergy Verified 01/20/22 22:29 Active Medications: Current Medications Acetaminophen (Acetaminophen 325 Mg Tablet) 650 mg PO Q6H PRN PRN Reason: Pain, Mild (Pain Scale 1-3) Aspirin (Aspirin 81 Mg Tab.Chew) 81 mg PO DAILY [facility] Last Admin: 01/27/23 07:22 Dose: 81 mg Atorvastatin Calcium (Atorvastatin Calcium 80 Mg Tablet) 80 mg PO BEDTIME [facility] Last Admin: 01/26/23 20:04 Dose: 80 mg Clopidogrel Bisulfate (Clopidogrel Bisulfate 75 Mg Tablet) 75 mg PO DAILY [facility] Last Admin: 01/27/23 12:41 Dose: 75 mg Folic Acid (Folic Acid 1 Mg Tablet) 1 mg PO DAILY [facility] Last Admin: 01/27/23 12:42 Dose: 1 mg Gabapentin (Gabapentin 400 Mg Capsule) 800 mg PO BEDTIME [facility] Last Admin: 01/26/23 20:04 Dose: 800 mg Gabapentin (Gabapentin 400 Mg Capsule) 800 mg PO BID@0900,1200 PRN PRN Reason: Anxiety Nicotine (Nicotine 14 Mg Patch.Td24) 14 mg TRANSDERMA DAILY [facility] Last Admin: 01/27/23 07:23 Dose: Not Given Ondansetron HCl (Ondansetron Hcl 4 Mg/2 Ml Vial) 4 mg IVPUSH Q8H PRN PRN Reason: Nausea and Vomiting Sodium Chloride (0.9 % Sodium Chloride Flush 3 Ml Syringe) 3 ml IVFLUSH QSHIFT [facility] Last Admin: 01/27/23 07:22 Dose: 3 ml Thiamine HCl (Thiamine Hcl 100 Mg Tablet) 100 mg PO DAILY [facility] Last Admin: 01/27/23 12:42 Dose: 100 mg Home Medications Medication Instructions Recorded Confirmed Last Taken Type gabapentin 800 mg tablet 1 tab PO BEDTIME 01/26/23 01/26/23 01/25/23 History gabapentin 800 mg tablet 1 tab PO BID@0900,1200 PRN Anxiety 01/26/23 01/26/23 01/25/23 History Physical Exam Vital Signs: Vital Signs: Last Vital Signs Temp 98.2 F 01/27/23 11:23 Pulse 52 01/27/23 11:23 Resp 16 01/27/23 11:23 BP 130/61 01/27/23 11:23 Pulse Ox 98 01/27/23 11:23 O2 Del Method 01/27/23 11:23 BMI result Body Mass Index 26.4 Const: General: cooperative, healthy appearing and comfortable Orientation/consciousness: oriented to person, oriented to place and oriented to time HEENT: Head: Yes normal to inspection Neck: Neck: Yes normal visual inspection Carotids: no bruits Chest: Chest palpation & inspection: normal inspection of the chest Resp: Effort & Inspection: normal respiratory effort and able to speak in complete sentences Auscultation: clear to auscultation bilaterally, no crackles, no rales, no rhonchi and no wheezes Cardio: Rate: regular rate Rhythm: regular rhythm Heart sounds: S1 normal heart sound present and S2 normal heart sound present Bruits: no carotid bruits Peripheral pulses: Peripheral pulses 2+ throughout GI: Inspection: Yes normal to inspection Skin: Wounds: no wounds Hair: normal Neuro: Other: Mi left arm and leg deficit. General: oriented to person, oriented to place and oriented to time Cranial nerves: Yes CN's II-XII intact bilaterally and Yes Normal hearing present Cognition (Neuro): normal cognition Extrem: Other: venous exam: No significant superficial varicosities or spider telangiectasias, minimal edema General: No clubbing, No cyanosis and No edema Psych: Appearance: grossly normal Mental Status: mental status grossly normal Speech and movement: Normal speech and movement present Results Labs 01/26/23 13:34 01/27/23 05:45 Labs: Abnormal lab results 01/26/23 01/26/23 01/26/23 Range/Units 13:34 13:34 16:06 RBC 4.32 L (4.60-5.80) X10*6/uL Hgb 13.9 L (14.0-18.0) g/dl Hct 41.4 L (42.0-52.0) % MPV 8.6 L (9.4-12.4) fL Immature Gran % (Auto) 0.5 H (0.0-0.4) % Neut % (Auto) 77.4 H (45-73) % Lymph % (Auto) 11.7 L (20-40) % Lymph # (Auto) 0.7 L (1.2-4.9) X10*3/uL Carbon Dioxide 30 H (22-29) mmol/L BUN 19 H (9-16) mg/dL Total Bilirubin 1.7 H (0.0-1.0) mg/dL Ur Specific [place] >= 1.030 H (1.005-1.025) Urine Protein 30 (1+) H (Neg-Trace) mg/dL 01/27/23 Range/Units 05:45 RBC (4.60-5.80) X10*6/uL Hgb (14.0-18.0) g/dl Hct (42.0-52.0) % MPV (9.4-12.4) fL Immature Gran % (Auto) (0.0-0.4) % Neut % (Auto) (45-73) % Lymph % (Auto) (20-40) % Lymph # (Auto) (1.2-4.9) X10*3/uL Carbon Dioxide (22-29) mmol/L BUN (9-16) mg/dL Total Bilirubin 2.3 H (0.0-1.0) mg/dL Ur Specific [place] (1.005-1.025) Urine Protein (Neg-Trace) mg/dL Short CBC 01/26/23 Range/Units 13:34 WBC 6.2 (4.8-10.8) X10*3/uL Hgb 13.9 L (14.0-18.0) g/dl Hct 41.4 L (42.0-52.0) % Plt Count 202 (160-400) X10*3/uL BMP 01/26/23 01/27/23 13:34 05:45 Sodium 138 137 Potassium 4.3 4.0 Chloride 100 101 Carbon Dioxide 30 H 27 BUN 19 H 13 Creatinine 0.82 0.73 Calcium 9.2 9.2 Liver Function 01/26/23 01/27/23 Range/Units 13:34 05:45 Total Bilirubin 1.7 H 2.3 H (0.0-1.0) mg/dL AST 31 28 (5-37) U/L ALT 27 25 (0-40) U/L Alkaline Phosphatase 102 78 (39-117) U/L Albumin 4.4 4.0 (3.5-5.0) g/dL Urine 01/26/23 Range/Units 16:06 Urine Color Yellow Urine Appearance Clear Urine pH 7.5 (5.0-9.0) Ur Specific [place] >= 1.030 H (1.005-1.025) Urine Protein 30 (1+) H (Neg-Trace) mg/dL Urine Glucose (UA) Negative (Negative) mg/dL All other labs normal. Imaging Additional studies: CT angiogram of carotids was reviewed and demonstrates right-sided 80% stenosis. Assessment and Plan (1) Right-sided extracranial carotid artery stenosis: Status: Acute Plan In short patient has high-grade right carotid stenosis. It is unclear if this is related to his current events or issues. Neurology note appreciated. This carotid will need to be repaired as an elective outpatient procedure. At the current time would recommend dual anti-platelet agents of aspirin and Plavix and high-dose statin. Once again we can see this patient as an outpatient and work him up electively for carotid endarterectomy. Thank you for allowing us to assist in his care. If there are any questions or concerns please do not hesitate to contact us. Time Spent With Patient Time: Total time managing care of this patient today ____ minutes. Procedures Date of Service Date of Service: 01/27/23
--- NOTE | 2023-01-27 15:20 | MHC.RECOVRN ---
Addendum entered by Hermelinda Ortiz RN 01/27/23 16:03: This communications writer attmepted to meet w/ patient x's 2 after addiction consult placed. Patient was in bed, alert, sitting up. This communications writer introduced self and role, patient reports drinking a couple drinks per night . This communications writer asked if patient would be interested in reviewing resources and/or talking further about alcohol use. Patient declined, states is all set. Original Note: This communications writer made attempt to meet w/ patient, patient at bedside with family member and CM, this communications writer to return.
[2023-01-27 15:22] VITALS: BP 179/80; PULSE 89; RESP 18; TEMP 36.6; O2SAT 98
--- NOTE | 2023-01-27 16:09 | P.EN_ITS ---
Event Note Date of Service: 01/27/23 Event Note: Addiction consult: Please see promotions executive producer note dated 01/27/23 Time Spent With Patient Time: Total time managing care of this patient today ____ minutes.
--- NOTE | 2023-01-27 16:09 | PM.EVENT ---
Event Note Date of Service: 01/27/23 Event Note: Addiction consult: Please see auctioneer art note dated 01/27/23 Time Spent With Patient Time: Total time managing care of this patient today ____ minutes.
[2023-01-27 19:30] VITALS: BP 163/88; PULSE 89; RESP 18; TEMP 36.7; O2SAT 98
[2023-01-27] MEDS: Atorvastatin Calcium 80 MG TABLET PO (20:14)
[2023-01-27] MEDS: Gabapentin 400 MG CAPSULE 800 MG PO (20:14)
[2023-01-28] VITALS: BP 154/90; PULSE 46; RESP 18; TEMP 37.2; O2SAT 98
[2023-01-28] MEDS: 0.9 % Sodium Chloride Flush 3 ML SYRINGE IVFLUSH ×2 (00:42→08:01)
[2023-01-28 03:34] VITALS: BP 140/88; PULSE 50; RESP 16; TEMP 36.5; O2SAT 95
[2023-01-28 07:28] VITALS: BP 166/88; PULSE 58; RESP 20; TEMP 36.1; O2SAT 96
[2023-01-28] MEDS: Thiamine HCL 100 MG TABLET PO (08:01)
[2023-01-28] MEDS: Clopidogrel Bisulfate 75 MG TABLET PO (08:01)
[2023-01-28] MEDS: Folic Acid 1 MG TABLET PO (08:01)
--- NOTE | 2023-01-28 09:49 | P.DS_ITS ---
DS: Providers Provider Date of Service: 01/28/23 Date of admission: 01/26/23 14:44 Date of discharge: 01/28/23 Primary care physician: ESTHRE Cornejo Consults: 01/26/23 14:44 Consult to Vascular Surgery Routine Consulting Provider: Eliot Carrero Reason for consultation: stroke, carotid stenosis Has provider been notified: No 01/26/23 15:14 Consult to Neurology Routine Consulting Provider: Keke Best Reason for consultation: TIA 01/26/23 19:50 Addiction Medicine Routine Consulting Provider: Addiction Covering Reason for consultation: ETOH Attending physician on discharge: Poncho Iraheta Discharging clinician: Abida Valdez DS: Diagnosis Discharge Diagnosis (1) Right-sided extracranial carotid artery stenosis: Status: Acute (2) Cerebrovascular accident: Status: Acute DS: Summary Hospital Course Hospital Course: From H&P on day of admission 67-year-old man presenting to the ER with left upper lower extremity weakness and numbness and mild speech difficulties that were noted at 09:30 this morning when he got out of bed.? Reports that his last known well time was at 02:00 when he got out of bed to go to the bathroom.? Patient denied chest pain, shortness breath, nausea, vomiting, diarrhea, recent travel, sick contacts.? Because patient was 11 hours past known well time he was not a candidate for tPA.? In the ER, labs all noted to be within acceptable limits, elevated blood pressure readings noted.? Head and neck CTA completed, 80% stenosis of the right internal carotid artery noted with small chronic cortical infarctions with no evidence of acute infarct or hemorrhage.? He was given a dose of aspirin, Zofran, thiamine, folic acid in the ER.? He will be placed on observation for TIA. Dizziness/Left side numbness. Head and neck CTA showing chronic infarction with 80% stenosis of right carotid artery. MRI with chronic changes. However given persistent symptoms of left- sided numbness and dizziness / balance difficulty with ambulation Neurology read the brain MRI and it did in fact show an acute small right pontine infarct. echo was obtained and showed no evidence of cardiomyopathy or valvular abnormality. He was started on aspirin and high-intensity statin. He was seen in consultation by Neurology as above. He was evaluated by Physical therapy and Occupational therapy who recommended acute rehab. Due to carotid stenosis, he was evaluated by vascular surgery who recommended outpatient elective carotid endarterectomy as well as adding Plavix for dual anti-platelet therapy. He should call to schedule follow-up appointment with vascular surgery office. HTN. BP not at goal, low dose norvasc was started and should continue to be up titrated as needed for adequate blood pressure control. daily alcohol use. There was no evidence of alcohol withdrawal. he was started on supplementation with thiamine and folic acid. He was seen in consultation by Addiction Medicine but not feel he needed any additional resources. Alcohol cessation is recommended Tobacco dependence. he was started on nicotine replacement therapy and importance of smoking cessation was discussed. Time Spent with Patient Time attestation: Total time managing care of this patient today ____ minutes. Discharge coordination time: Greater than 30 minutes Quality: Safe Use of Opioids Does Pt have an Active Cancer Diagnosis on the Problem List?: No Quality: Stroke Does the patient have a stroke diagnosis?: Yes Reason for No Anti-thrombotic at DC: N/A - Med Ordered Reason for No Anticoagulant at DC: Not indicated Reason Not Initiating IV-Tpa: Not indicated Reason for No Anti-thrombotic by Day Two: N/A - Med Ordered Reason for No Statin at DC: N/A - Med Ordered Physical Exam Vital Signs: Vital Signs: Last Vital Signs Temp 97.0 F 01/28/23 07:28 Pulse 58 01/28/23 07:28 Resp 20 01/28/23 07:28 BP 166/88 H 01/28/23 07:28 Pulse Ox 96 01/28/23 07:28 O2 Del Method 01/28/23 07:28 BMI result Body Mass Index 26.4 Const: General: cooperative, comfortable, alert and awake Nutritional Appearance: average body habitus Orientation/consciousness: patient oriented x3 Resp: Effort & Inspection: normal respiratory effort and able to speak in complete sentences Cardio: Rate: regular rate Heart sounds: S1 normal heart sound present and S2 normal heart sound present GI: Inspection: No distended Palpation (GI): Soft to palpation Neuro: General: patient oriented x3 Cranial nerves: Yes Normal facial strength present and Yes Midline tongue present Discharge Plan Discharge Anticipated Discharge Date/Time: 01/28/23 09:49 Patient Disposition: Xfer Inpatient Rehab Fac Discharge Diagnosis: acute stroke right carotid stenosis Referrals: Narda Morris PA [Primary Care Provider] - 1 Week Eliot Carrero MD [Physician] - 1 Week Discharge Medications: New nicotine 14 mg/24 hr Patch 24 Hour 14 mg transdermal DAILY 30 Days Qty: 28 0RF clopidogrel 75 mg Tablet 75 mg PO DAILY 30 Days Qty: 30 0RF amlodipine 2.5 mg Tablet 2.5 mg PO DAILY 30 Days Qty: 30 0RF Protocol: Hold for SBP< HOLD for SBP < : 90 atorvastatin 80 mg Tablet 80 mg PO BEDTIME 30 Days Qty: 30 0RF aspirin 81 mg Tablet,Chewable 81 mg PO DAILY 30 Days Qty: 30 0RF folic acid 1 mg Tablet 1 mg PO DAILY 30 Days Qty: 30 0RF thiamine mononitrate (vit B1) 100 mg Tablet 100 mg PO DAILY 30 Days Qty: 30 0RF Continued gabapentin 800 mg tablet 1 tab PO BEDTIME gabapentin 800 mg tablet 1 tab PO BID@0900,1200 PRN (Reason: Anxiety) Discharge Orders: Discharge Order (Routine); Ordered 01/28/23 Ordered By: Abida Valdez Activity on Discharge: As tolerated Stand Alone Forms: Patient Portal Discharge page Care Plan Goals: prevent future stroke Health Concerns: acute right pontine stroke right carotid stenosis elevated blood pressure tobacco dependence Plan of Treatment: you will be transferred to acute rehab for PT/OT You have been started on dual anti-platelet therapy with both aspirin and Plavix, please take as prescribed You have been started on atorvastatin for cholesterol you have been started on low dose norvasc for blood pressure control, this can be up-titrated as needed for adequate blood pressure control. avoid hypotension recommend tobacco and alcohol cessation. can continue nicotine replacement therapy Assessment: see discharge summary
[2023-01-28] MEDS: amLODIPine Besylate 2.5 MG TABLET PO (11:05)
--- NOTE | 2023-01-28 11:05 | MHC.CM.PN ---
pt to [facility] today at 1 son brunilda notified
[2023-01-28] MEDS: Aspirin 81 MG TAB.CHEW PO (11:06)
[2023-01-28 11:12] VITALS: BP 170/98; PULSE 64; RESP 20; TEMP 36.5; O2SAT 97
== END 2023-01-28 14:15 | DRG 65 ==
LOC: HO.ED 14:08 → HO.IMC 17:57 → HO.EDOVER 03-22 08:01 → HO.IMC 03-22 08:01
PROVIDERS: Admitting Provider Nurse Practitioner Acute Care; Emergency Provider Emergency Medicine; PCP Physician Assistant; Visit Provider Physician Assistant Medical
DX: I63.89 Other cerebral infarction (principal); G81.94 Hemiplegia, unspecified affecting left nondominant side; G62.9 Polyneuropathy, unspecified; I65.21 Occlusion and stenosis of right carotid artery; F17.210 Nicotine dependence, cigarettes, uncomplicated; R29.700 NIHSS score 0; Z20.822 Contact with and (suspected) exposure to COVID-19; Z79.02 Long term (current) use of antithrombotics/antiplatelets; Z79.82 Long term (current) use of aspirin; Z79.899 Other long term (current) drug therapy
CPT/HCPCS: 36415; 70450; 70496; 70498; 70551; 71045; 80053; 80061; 81001; 82947; 85025; 85610; 87635; 93005; 93306; 93356; 97162; 97165; 97535; 99222; 99285; Q9957; Q9967

== ENCOUNTER → 2023-03-08 11:26 | Outpatient (BNVA) | payer MEDICARE, MEDICAID, SELFPAY | PROVIDERS: PCP Physician Assistant; Visit Provider Surgery Vascular Surgery | DX: I63.231 Cerebral infarction due to unspecified occlusion or stenosis of right carotid arteries (principal) | CPT/HCPCS: 99212 ==

== ENCOUNTER → 2023-03-09 14:09 | Outpatient (BNVA) | payer MEDICARE, MEDICAID, SELFPAY | PROVIDERS: PCP Physician Assistant; Referring Provider Physician Assistant; Visit Provider Internal Medicine | DX: Z01.810 Encounter for preprocedural cardiovascular examination (principal); I65.21 Occlusion and stenosis of right carotid artery; I63.9 Cerebral infarction, unspecified | CPT/HCPCS: 99202 ==

== ENCOUNTER → 2023-03-24 09:09 | Outpatient (REF) | payer MEDICARE, MEDICAID, SELFPAY ==
--- NOTE | ~2023-03-24 | NM_ITS ---
Lexiscan Myocardial perfusion study Indication: Preoperative cardiovascular evaluation assess for coronary disease and ischemia Technique: The patient was brought in for a Lexiscan perfusion study on 03/24/2023 and was injected 0.4 mg of Lexiscan intravenously. Within a minute of this injection 25 mCi of sestamibi was given intravenously. Images were obtained using the SPECT gamma camera interlaced with the gating device. Images were obtained in supine position. Resting perfusion study was performed on 03/28/2023. Patient was administered 25 mCi of sestamibi intravenously at rest. Images were then obtained in supine position. Images were processed with the software and compared side to side in short axis, horizontal long axis and vertical long axis views. Total DLP 75mGy-cm. Findings: Raw acquisition reviewed. The stress perfusion study showed mildly diminished tracer uptake in the mid to distal anterior wall along a small portion. Mildly diminished uptake in the inferior wall but difficult to assess as there is subdiaphragmatic tracer uptake. In the CT attenuated portion, there is still some reduced uptake in the mid to distal anterior wall. Inferior wall is difficult to assess as there is some diaphragmatic uptake. The gated study shows normal LV systolic function with calculated LVEF of 54%. LV cavity is normal in size. The gated study shows normal wall thickening and contraction of segments. Resting study shows no significant perfusion abnormality in anterior wall. In the inferior wall, there is diminished tracer uptake. There is possibly some improvement with CT attenuation correction but there is also subdiaphragmatic uptake nearby and hence visualization suboptimal. Gating at rest reveals normal wall motion with ejection fraction at 68%. The findings are consistent with mild reversible anterior defect, probably artifactual. Mild fixed inferior defect again suspected artifactual. NM/NM alexander perf SPECT rest & str Impression: 1. Myocardial perfusion imaging study shows probably normal myocardial perfusion. Mild reversible anterior defect but normal wall thickening contractility and hence probably artifactual. Mild fixed inferior defect but again normal contractility suggesting artifactual etiology. 2. Gated LVEF is 59% during stress and 68% during rest. 3. Transient ischemic dilatation not present. EKG component of the test reported separately.
--- NOTE | 2023-03-24 09:11 | CA_ITS ---
Acquisition Time: 2023-03-24 09:35:52 Total Exercise Time: 00:02:00 Test Indications: PREOP Medications: SEE H Protocol: LEXISCAN Max HR: 108 BPM 70% of Pred: 153 BPM Max BP: 148/088 mmHG Max Work Load: 1.0 METS Pharmacological stress test with Lexiscan injection while sitting and kicking his legs, without anginal symptoms, without arrythmia, with normotensive response to exercise, without EKG changes. Patient given Aminophylline 75mg IVP to reverse Lexiscan. Nuclear images pending. Test reviewed with Dr. Ferguson. Referred By: Neil Starkey Overread By: ELIZABETH SMITH
== END ==
LOC: HO.CARD 09:09
PROVIDERS: Visit Provider Internal Medicine
DX: Z01.810 Encounter for preprocedural cardiovascular examination (principal)
CPT/HCPCS: 78452; 93017; A9500; J0280; J2785

== ENCOUNTER 2023-04-04 06:08 | Inpatient (IN) | payer MEDICARE, MEDICAID, SELFPAY ==
[2023-03-31 13:07] VITALS: BP 129/73; PULSE 59; RESP 16; O2SAT 99; BMI 24.0
--- NOTE | 2023-03-31 13:19 | HO.ANESPROP2 ---
Documented by User: Narda Gonzalez NP 04/01/23 08:48 HPI - Anesthesia Eval Consult details Narrative: 67yo M for Right Carotid Endarte[place] [facility] [place] CVA r/t carotid stenosis 01/2023 Cardiac w/u complete. Cleared to proceed Plavix for CVA ETOH abuse ~2 drinks daily. Encouraged to slowly decrease prior to surgery. PMFSH Active Problems Active Problems: All Active Problems (Updated 03/31/23 @ 13:06 by Yissel Juarez RN) Dizziness (Acute) Right-sided extracranial carotid artery stenosis (Acute) Stroke due to stenosis of right carotid artery (Acute) Preoperative cardiovascular examination (Acute) Cerebrovascular accident (Acute) Past Medical History Medical History (Updated 03/31/23 @ 13:06 by Yissel Juarez RN) Arthritis Atrioventricular block, first degree Cerebrovascular accident Elevated cholesterol Hemiparesis affecting left side as late effect of stroke HTN (hypertension) Hx of concussion Use of cane as ambulatory aid Family History Family History Father No problems noted. Mother Cancer Family history of problems with anesthesia: No Surgical History Surgical History (Updated 03/31/23 @ 13:01 by Yissel Juarez RN) Hx of colonoscopy Hx of foot surgery History of Problems with Anesthesia: No Social History Social History (Updated 03/09/23 @ 14:17 by Mary Ibarra) Household Members: None Housing: Apartment Are you a primary pediatric critical care nurse to a significant other at home: No Do you presently have visiting nurse or other home services: No Alcohol intake: current Alcohol intake frequency: 0-2 drinks per day Alcohol type: hard liquor Patient Tobacco Use Status: Current everyday Tobacco user Tobacco use type: Cigarette Cigarettes Per Day: 4 Years Smoked: 40 Smoked in Last 30 Days: Yes e-Cigarette/Vaping Use: Currently Using Patient Interested in Nicotine Replacement: No Patient Given Instructions on How to Stop Smoking: Yes Date Education Initiated: 03/31/23 Second Hand Smoke Exposure: No Use of substances other than those prescribed or required for medical reasons: No Substance Use Type: Marijuana Substance Use Frequency: Weekly Have you been hit, kicked, punched, or otherwise hurt by someone within the past year? If so, by whom?: No Spiritual Healthcare Practices: no Mormonism Healthcare Practices: no Cultural Healthcare Practices: no Are you DNR?: No Advance Directives: Yes Advance Directives Information Provided: No Advance Directives on File: Yes Advance Directives Date on File: 01/31/22 Recently lost weight without trying: No Nutrition Risks: No Nutritional Risk Poor oral hygiene: No service: No Current occupational status: retired Narrative Narrative: No recent illness No CP/SOB. Limited activity after stroke Meds Allergies Allergy/AdvReac Type Severity Reaction Status Date / Time No Known Allergies Allergy Verified 03/31/23 13:00 Home Medications Medication Instructions Recorded Confirmed Last Taken Type aspirin 81 mg tablet,delayed 81 mg PO DAILY 03/09/23 03/31/23 Unknown History release gabapentin 800 mg tablet 800 mg PO BEDTIME 03/09/23 03/31/23 Unknown History gabapentin 800 mg tablet 800 mg PO BID@0900,1200 PRN Anxiety 03/09/23 03/31/23 Unknown History Exam Exam Date and Time: March 31, 2023 1319 Height,Weight and Vital Signs: Height 5 ft 10 in Weight 75.8 kg Last Vital Signs Pulse 59 03/31/23 13:07 Resp 16 03/31/23 13:07 BP 129/73 03/31/23 13:07 Pulse Ox 99 03/31/23 13:07 O2 Del Method Room Air 03/31/23 13:07 Pertinent Lab Results Pertinent Lab Results: Lab Results 03/31/23 03/31/23 03/31/23 Range/Units 13:45 13:52 13:52 WBC 6.2 (4.8-10.8) X10*3/uL RBC 4.13 L (4.60-5.80) X10*6/uL Hgb 13.2 L (14.0-18.0) g/dl Hct 40.2 L (42.0-52.0) % MCV 97.3 (80.0-98.0) fL MCH 32.0 (27.0-33.0) pg MCHC 32.8 (31.0-36.0) g/dl RDW 13.0 (11.0-16.0) % Plt Count 256 D (160-400) X10*3/uL MPV 9.2 L (9.4-12.4) fL Absolute Nucleated RBC 0.000 (0.0-0.012) X10*3/uL Nucleated RBC % (auto) 0.0 (0.0-0.2) /100WBC PT 12.3 (10.0-13.1) SEC INR 1.1 (0.9-1.1) APTT 56.2 H (26.0-36.4) SEC Sodium (135-145) mmol/L Potassium (3.3-5.1) mmol/L Chloride (96-108) mmol/L Carbon Dioxide (22-29) mmol/L Anion Gap (12-20) BUN (9-16) mg/dL Creatinine (0.5-1.4) mg/dL Estim Creat Clear Calc Estimated GFR Random Glucose (60-115) mg/dL Calcium (8.4-10.2) mg/dL Blood Type O Positive Antibody Screen NEGATIVE 03/31/23 Range/Units 13:52 WBC (4.8-10.8) X10*3/uL RBC (4.60-5.80) X10*6/uL Hgb (14.0-18.0) g/dl Hct (42.0-52.0) % MCV (80.0-98.0) fL MCH (27.0-33.0) pg MCHC (31.0-36.0) g/dl RDW (11.0-16.0) % Plt Count (160-400) X10*3/uL MPV (9.4-12.4) fL Absolute Nucleated RBC (0.0-0.012) X10*3/uL Nucleated RBC % (auto) (0.0-0.2) /100WBC PT (10.0-13.1) SEC INR (0.9-1.1) APTT (26.0-36.4) SEC Sodium 139 (135-145) mmol/L Potassium 5.2 H D (3.3-5.1) mmol/L Chloride 103 (96-108) mmol/L Carbon Dioxide 29 (22-29) mmol/L Anion Gap 12 (12-20) BUN 13 (9-16) mg/dL Creatinine 0.83 (0.5-1.4) mg/dL Estim Creat Clear Calc 89.1 Estimated GFR > 60 Random Glucose 92 (60-115) mg/dL Calcium 9.8 D (8.4-10.2) mg/dL Blood Type Antibody Screen Narrative Narrative: EKG 01/2023 Vent. Rate : 086 BPM ? ? Atrial Rate : 086 BPM ?? P-R Int : 214 ms? QRS Dur : 090 ms ? ? QT Int : 394 ms ? ? ? P-R-T Axes : 070 050 066 degrees ?? QTc Int : 471 ms ? Sinus rhythm with 1st degree A-V block Otherwise normal ECG When compared with ECG of 01-JAN-2006 12:31, MA interval has increased ECHO 01/2023 Conclusions: - 1.? Normal LV systolic and diastolic function? 2.? Normal cardiac valvular Doppler? 3.? Normal RV systolic pressure? 4.? No gross pericardial effusion? ? ? NM alexander perf SPECT rest & str 02/2023 Impression: ? 1.? Myocardial perfusion imaging study shows probably normal myocardial perfusion. Mild reversible anterior defect but normal wall thickening contractility and hence probably artifactual. Mild fixed inferior defect but again normal contractility suggesting artifactual etiology. 2.? Gated LVEF is 59% during stress and 68% during rest. 3. Transient ischemic dilatation not present. ? EKG component of the test reported separately. Airway Mallampati Class: II TM Dist: >3cm Neck ROM: Limited Loose/Missing/Broken Teeth: Yes (Molars missing) Heart: RRR Lungs: RLL coarse, clears with cough Otherwise CTA Assessment and Plan Assessment Anesthesia Assessment: Anesthesia Plan Discussed, Smoking Cess. Discussed and PAT Visit Final Anesthetic Review Family History of Problems with Anesthesia: No History of Problems with Anesthesia: No Documented by User: Jamarcus Carter MD 04/04/23 08:51 PMFSH Past Medical History Medical History (Updated 03/31/23 @ 13:06 by Yissel Juarez RN) Arthritis Atrioventricular block, first degree Cerebrovascular accident Elevated cholesterol Hemiparesis affecting left side as late effect of stroke HTN (hypertension) Hx of concussion Use of cane as ambulatory aid Family History Family History Father No problems noted. Mother Cancer Surgical History Surgical History (Updated 03/31/23 @ 13:01 by Yissel Juarez RN) Hx of colonoscopy Hx of foot surgery Social History Social History (Updated 03/09/23 @ 14:17 by Mary Ibarra) Household Members: None Housing: Apartment Are you a primary pediatric critical care nurse to a significant other at home: No Do you presently have visiting nurse or other home services: No Alcohol intake: current Alcohol intake frequency: 0-2 drinks per day Alcohol type: hard liquor Patient Tobacco Use Status: Current everyday Tobacco user Tobacco use type: Cigarette Cigarettes Per Day: 4 Years Smoked: 40 Smoked in Last 30 Days: Yes e-Cigarette/Vaping Use: Currently Using Patient Interested in Nicotine Replacement: No Patient Given Instructions on How to Stop Smoking: Yes Date Education Initiated: 03/31/23 Second Hand Smoke Exposure: No Use of substances other than those prescribed or required for medical reasons: No Substance Use Type: Marijuana Substance Use Frequency: Weekly Have you been hit, kicked, punched, or otherwise hurt by someone within the past year? If so, by whom?: No Spiritual Healthcare Practices: no Mormonism Healthcare Practices: no Cultural Healthcare Practices: no Are you DNR?: No Advance Directives: Yes Advance Directives Information Provided: No Advance Directives on File: Yes Advance Directives Date on File: 01/31/22 Recently lost weight without trying: No Nutrition Risks: No Nutritional Risk Poor oral hygiene: No service: No Current occupational status: retired [employer] Allergies Allergy/AdvReac Type Severity Reaction Status Date / Time No Known Allergies Allergy Verified 03/31/23 13:00 Home Medications Medication Instructions Recorded Confirmed Last Taken Type aspirin 81 mg tablet,delayed 81 mg PO DAILY 03/09/23 03/31/23 Unknown History release gabapentin 800 mg tablet 800 mg PO BEDTIME 03/09/23 03/31/23 Unknown History gabapentin 800 mg tablet 800 mg PO BID@0900,1200 PRN Anxiety 03/09/23 03/31/23 Unknown History Exam Airway Lungs: ok Assessment and Plan Final Anesthetic Review NPO: Yes ASA Class: III and IV Final Preanesthetic Review: No Changes in Pt Med Stat, Meds/Allgs Chart Reviewed, Consent Obtained/Reviewed and Anes Risks/Benef Reviewed Patient Risk: High Procedure Risk: High Anesthetic Plan Anesthetic Plan: GA and Agree w/ Assess. and Plan Disposition: Standard PACU and Inp. Admit - ICU
[2023-03-31 15:06] LABS: Hematocrit 40.2 % (42.0-52.0); Hemoglobin 13.2 g/dl (14.0-18.0); Mean Corpuscular HGB Conc 32.8 g/dl (31.0-36.0); Mean Corpuscular Volume 97.3 fL (80.0-98.0); Mean Platelet Volume 9.2 fL (9.4-12.4); Platelet Count 256 X10*3/uL (160-400); Red Blood Count 4.13 X10*6/uL (4.60-5.80); White Blood Count 6.2 X10*3/uL (4.8-10.8)
[2023-03-31 15:13] LABS: INTERNATIONAL NORM RATIO 1.1 (0.9-1.1); Prothrombin Time 12.3 SEC (10.0-13.1)
[2023-03-31 15:15] LABS: Partial Thromboplastin Time 56.2 SEC (26.0-36.4)
[2023-03-31 15:40] LABS: Anion Gap 12 (12-20); Blood Urea Nitrogen 13 mg/dL (9-16); Calcium 9.8 mg/dL (8.4-10.2); Carbon Dioxide 29 mmol/L (22-29); Chloride 103 mmol/L (96-108); Creatinine Clr Calc Pharmacy 89.1; Estimated Glomerular Filt Rate > 60; Glucose Random 92 mg/dL (60-115); Potassium 5.2 mmol/L (3.3-5.1); Sodium 139 mmol/L (135-145)
[2023-04-04] VITALS (27 sets, daily range): BP systolic 93–148; BP diastolic 50–81; PULSE 52–76; RESP 12–16; TEMP 36.3–37.1; O2SAT 91–100; BMI 24.8
[2023-04-04 06:42] LABS: Hematocrit 39.9 % (42.0-52.0); Hemoglobin 13.2 g/dl (14.0-18.0); Mean Corpuscular HGB Conc 33.1 g/dl (31.0-36.0); Mean Corpuscular Hemoglobin 31.6 pg (27.0-33.0); Mean Corpuscular Volume 95.5 fL (80.0-98.0); Mean Platelet Volume 8.7 fL (9.4-12.4); Platelet Count 206 X10*3/uL (160-400); Red Blood Count 4.18 X10*6/uL (4.60-5.80); Red Cell Distribution Width 12.8 % (11.0-16.0)
[2023-04-04 06:42] LABS: COVID-19 Test Negative (Negative); IDNOW Serial# 16C4AD1C
[2023-04-04] MEDS: Lactated Ringers 1,000 ML 100 ML IVCONT (06:57)
[2023-04-04 06:58] LABS: Anion Gap 13 (12-20); Blood Urea Nitrogen 18 mg/dL (9-16); Calcium 9.4 mg/dL (8.4-10.2); Carbon Dioxide 26 mmol/L (22-29); Chloride 102 mmol/L (96-108); Creatinine Clr Calc Pharmacy 92.5; Estimated Glomerular Filt Rate > 60; Glucose Fasting 100 mg/dL (60-99); Potassium 4.3 mmol/L (3.3-5.1); Sodium 137 mmol/L (135-145)
[2023-04-04 07:03] LABS: Prothrombin Time 11.4 SEC (10.0-13.1)
--- NOTE | 2023-04-04 07:37 | MHC.SHP ---
Pre-Procedural Eval Section A Date of Service: 04/04/23 The patient is an INPATIENT: No Changes since office visit: Yes Patient answered all questions The History & Physical has been completed within 30 days and I have reviewed it.: Yes Section B Chief Complaint: Postop Allergies: Allergies Allergy/AdvReac Type Severity Reaction Status Date / Time No Known Allergies Allergy Verified 03/31/23 13:00 Plan I have reviewed the history and physical and performed a pertinent physical examination on my patient. No changes have occurred unless specified. Time Spent With Patient Time: Total time managing care of this patient today ____ minutes.
--- NOTE | 2023-04-04 09:18 | PHA.MEDREC ---
Pharmacy Consult ? Medication Reconciliation Pharmacy has reviewed the medication reconciliation completed by nursing.
--- NOTE | 2023-04-04 11:25 | P.OP_ITS ---
Operative Note Operative Note Date of Service: 04/04/23 Narrative: Operative note by [facility] Preoperative diagnosis:1. Right Carotid stenosis 2. Prior cerebrovascular accident Postoperative diagnosis: Same Procedure: Right Carotid endarterectomy with patch angioplasty Surgeon:Eliot Carrero M.D. Raise Drill Operator: Dr. Mccormick Anesthesia: General Specimens: 1 Drains: 1 Estimated blood loss: 200 mL Indications: Pleasant 67-year-old gentleman presents for operative treatment for high-grade right carotid stenosis. This had been worked up while he was admitted for CVA. Subsequently was discharged and underwent cardiac risk stratification. Demonstrated on CT a high-grade right carotid stenosis. He now presents for operative intervention The patient has signed the informed consent after reviewing risks, complications, benefits, and alternatives previously discussed with the patient. The patient was given the opportunity to ask any additional questions or voice any concerns. All questions were answered to the patient's satisfaction. Procedure in detail: Patient was taken to the operating room and placed in a supine position and prepped and draped in sterile manner with ChloraPrep. Longitudinal incision was made along the anterior border of the right sternocleidomastoid carried down through the subcutaneous fat and fascia. Hemostasis was obtained with electrocautery. The platysma muscle was then divided. The carotid sheath was identified in open. The vagus nerve, Ancef cervicalis, and hypoglossal nerves were identified and avoided. The common internal and external carotids were then freed from the surrounding tissue. At this point, 5000 units of heparin was administered and allowed to circulate for 5 minutes time to take effect. The internal, common, external carotids were clamped in that order. Once this was accomplished, we proceeded with the procedure. The carotid bulb was opened with an 11 blade and extended with Harrell scissors through the very tight lesion into normal internal carotid artery. This was then extended down into the common carotid artery. We then placed a Lomas shunt. Then the plaque was sharply excised proximally and an eversion endarterectomy was performed successfully at the external. The plaque tapered nicely on to the internal and no tacking sutures were necessary. Heparinized saline was injected and no evidence of flapping or other debris was noted. The remaining carotid was examined, which showed no debris or flaps present. At this point a XenoSure patch was brought on to the field. This was anastomosed to the artery using a 6 0 Prolene in a running fashion. Once approximately 4/5 of the patch was sewn in the shunt was then removed. Prior to the last stitch the internal carotid was back bled through this. Heparinized saline was instilled into the carotid. The last stitch was tied. Hemostasis was excellent. The internal carotid was gently occluded while while of the external and internal were open in that order. Finally the internal was then opened and flow was restored to the entire system. Hemostasis was achieved with interrupted 7-0 Prolene sutures. The wound was irrigated thoroughly. We then placed a 7 flat Pierre-Shaw drain. Deep layer was reapproximated using a 2-0 poly Sorb and finally the superficial layer with a 3-0 Polysorb. The skin was closed in a subcuticular manner. The patient awoke and neurologic status was checked and appeared to be intact. Sponge, needle and instrument counts were correct. The patient tolerated the procedure well. Returned to recovery with stable vitals. This note is constructed using voice recognition software. While every effort has been made to ensure accuracy, grain oilseed or pasture grower errors may have been included. Thank you for allowing me to participate in the care of your patient. Yours sincerely, Eliot Carrero MD, FACS, R.P.V.I.
--- NOTE | 2023-04-04 12:54 | P.CONCC_ITS ---
History of Present Illness Data of Consult Service Date: 04/04/23 Requesting physician: Eliot Carrero Primary Care Provider: ESTHER Cornejo HPI Reason for consult: 2 months status post left hemispheric CVA due to right-sided carotid stenos Today he underwent right carotid endarterectomy which was the source of his CVA 2 months ago and he has no diabetes but he is a hypertensive and hyperlipidemic underwent cardiovascular testing including echo showing class 1 function and adenosine nuclear stress testing showing no evidence of ischemia and had no complications during the surgery Currently he is or awake alert oriented nonfocal neurologically Review of Systems Review of Systems: Yes all other systems are reviewed and are negative PMFSH Past Medical History Medical History (Updated 03/31/23 @ 13:06 by Yissel Juarez RN) Arthritis Atrioventricular block, first degree Cerebrovascular accident Elevated cholesterol Hemiparesis affecting left side as late effect of stroke HTN (hypertension) Hx of concussion Use of cane as ambulatory aid Family History Family History Father No problems noted. Mother Cancer Surgical History Surgical History (Updated 03/31/23 @ 13:01 by Yissel Juarez RN) Hx of colonoscopy Hx of foot surgery Social History Social History (Updated 03/09/23 @ 14:17 by Mary Ibarra) Household Members: None Housing: Apartment Are you a primary acute care assistant to a significant other at home: No Do you presently have visiting nurse or other home services: No Alcohol intake: current Alcohol intake frequency: 0-2 drinks per day Alcohol type: hard liquor Patient Tobacco Use Status: Current everyday Tobacco user Tobacco use type: Cigarette Cigarettes Per Day: 4 Years Smoked: 40 Smoked in Last 30 Days: Yes e-Cigarette/Vaping Use: Currently Using Patient Interested in Nicotine Replacement: No Patient Given Instructions on How to Stop Smoking: Yes Date Education Initiated: 03/31/23 Second Hand Smoke Exposure: No Use of substances other than those prescribed or required for medical reasons: No Substance Use Type: Marijuana Substance Use Frequency: Weekly Have you been hit, kicked, punched, or otherwise hurt by someone within the past year? If so, by whom?: No Spiritual Healthcare Practices: no Evangelical Healthcare Practices: no Cultural Healthcare Practices: no Are you DNR?: No Advance Directives: Yes Advance Directives Information Provided: No Advance Directives on File: Yes Advance Directives Date on File: 01/31/22 Recently lost weight without trying: No Nutrition Risks: No Nutritional Risk Poor oral hygiene: No service: No Current occupational status: retired Meds Allergies Allergy/AdvReac Type Severity Reaction Status Date / Time No Known Allergies Allergy Verified 03/31/23 13:00 Active Medications: Current Medications Acetaminophen (Acetaminophen 325 Mg Tablet) 650 mg PO Q6H PRN PRN Reason: Pain, Mild (Pain Scale 1-3) Fentanyl (Fentanyl Citrate/Pf 100 Mcg/2 Ml Vial) 50 mcg IVPUSH Q5M PRN; Protocol PRN Reason: Pain, Severe (Pain Scale 7-10) Hydromorphone HCl (Hydromorphone Hcl 0.5 Mg/0.5 Ml Syringe) 0.5 mg IVPUSH Q5M PRN; Protocol PRN Reason: Pain, Severe (Pain Scale 7-10) Lactated Ringer's (Lr) 1,000 mls @ 100 mls/hr IVCONT .Q10H [facility] Last Admin: 04/04/23 06:57 Dose: 100 mls/hr Sodium Chloride (Ns) 1,000 mls @ 80 mls/hr IVCONT .[id number] [facility] Cefazolin Sodium/Dextrose (Ancef) 2 gm in 50 mls @ 100 mls/hr IV POSTOP ONE Stop: 04/04/23 14:29 Morphine Sulfate (Morphine Sulfate 2 Mg/Ml Cartridge) 2 mg IVPUSH Q4H PRN; Protocol PRN Reason: Pain, Severe (Pain Scale 7-10) Ondansetron HCl (Ondansetron Hcl 4 Mg/2 Ml Vial) 4 mg IVPUSH ONCE PRN PRN Reason: Nausea and Vomiting Oxycodone HCl (Oxycodone Hcl Immed Release 5 Mg Tablet) 5 mg PO Q4H PRN PRN Reason: Pain, Moderate(Pain Scale 4-6) Sodium Chloride (0.9 % Sodium Chloride Flush 3 Ml Syringe) 3 ml IVFLUSH QSHIFT [facility] Home Medications Medication Instructions Recorded Confirmed Last Taken Type aspirin 81 mg tablet,delayed 81 mg PO DAILY 03/09/23 03/31/23 Unknown History release gabapentin 800 mg tablet 800 mg PO BEDTIME 03/09/23 03/31/23 Unknown History gabapentin 800 mg tablet 800 mg PO BID@0900,1200 PRN Anxiety 03/09/23 03/31/23 Unknown History Physical Exam Vital Signs: Vital Signs: Last Vital Signs Temp 97.8 F 04/04/23 12:27 Pulse 55 04/04/23 12:27 Resp 16 04/04/23 12:27 BP 122/58 L 04/04/23 12:27 Pulse Ox 100 04/04/23 12:27 O2 Del Method Nasal Cannula 04/04/23 12:27 O2 Flow Rate 2 04/04/23 12:27 BMI result Body Mass Index 24.0 Awake alert nonfocal neurologically Normal sinus rhythm pressure 140/60 96% oxygen saturation Lungs are clear no adventitious sounds Cardiac exam good bilateral carotid upstrokes there is definitely swelling on that right side with a drain in place Abdomen soft no bruits no tenderness no organomegaly Skin without edema no acrocyanosis Results Labs 04/04/23 06:32 04/04/23 06:32 Labs: Short CBC 04/04/23 Range/Units 06:32 WBC 5.0 (4.8-10.8) X10*3/uL Hgb 13.2 L (14.0-18.0) g/dl Hct 39.9 L (42.0-52.0) % Plt Count 206 (160-400) X10*3/uL BMP 04/04/23 06:32 Sodium 137 Potassium 4.3 Chloride 102 Carbon Dioxide 26 BUN 18 H Creatinine 0.80 Calcium 9.4 Assessment and Plan (1) Dizziness: Status: Acute (2) Right-sided extracranial carotid artery stenosis: Status: Acute (3) Stroke due to stenosis of right carotid artery: Status: Acute (4) Preoperative cardiovascular examination: Status: Acute (5) Cerebrovascular accident: Status: Acute Plan Will observe for any complications most importantly if this seems to be expansion of the hematoma on the operative site but do not anticipate any cardiovascular issues Time Spent With Patient Time: Total time managing care of this patient today _30___ minutes.
[2023-04-04] MEDS: Throat Lozenge, Medicated LOZENGE 1 LOZENGE MUCOUS MEM ×2 (13:43→17:30)
[2023-04-04] MEDS: ceFAZolin Sodium/Dextrose,Iso 2 GM/50 ML PIGGYBACK IV (14:00)
[2023-04-04] MEDS: 0.9 % Sodium Chloride 1,000 ML 80 ML IVCONT ×2 (14:00→23:23)
[2023-04-04] MEDS: oxyCODONE HCl Immed Release 5 MG TABLET PO ×2 (15:10→20:49)
[2023-04-04] MEDS: traMADoL HCL 50 MG TABLET PO (16:28)
[2023-04-04] MEDS: Ketorolac Tromethamine 30 MG/ML VIAL IVPUSH (18:08)
--- NOTE | 2023-04-04 19:39 | PC.NURSE ---
Assumed care at 13:15. Patient alert and oriented. Neuros unremarkable. Patient had pain 7/10 pain to right side of neck incision, adminitered oxycodone because patient was uncomfortable with taking ordered morphine PRN, somewhat ineffective, discussed with MD and new order for tramadol Q6 hrs prn, administered tramadol with minimal effect, discussed with MD, also administering ice packs. Discussed with MD, one-time tramadol, discussed use of aspirin and plavix, ok per MD. Patient reports improvement in pain. Patient with sinus bradycardia and a 1st degree AVB rate in 50's. Rate slowed to 43 with turning right lateral. R radial Baker intact, some low pressures at shift change 90/60, ORNAMENTAL IRON ERECTOR aware. Bar catheter patent, some dysuria feeling he needs to urinate despite patent bar. Developed some slightly slurred speech around 1819, and patient's son in to visit, explains that patient has been having this type of slightly slurred speech since his CVA in January of this year. Speech cleared since then. ORNAMENTAL IRON ERECTOR notified.
[2023-04-04] MEDS: Atorvastatin Calcium 80 MG TABLET PO (20:46)
[2023-04-04] MEDS: Acetaminophen 325 MG TABLET 650 MG PO (22:10)
[2023-04-04] MEDS: 0.9 % Sodium Chloride Flush 3 ML SYRINGE IVFLUSH (23:22)
[2023-04-05] VITALS (15 sets, daily range): BP systolic 114–167; BP diastolic 56–77; PULSE 54–80; RESP 13–78; TEMP 36.6–37.3; O2SAT 93–98; BMI 24.7
[2023-04-05 04:39] LABS: MANUAL DIFF FLAG NO
[2023-04-05 04:40] LABS: Basophils Percent Auto 0.4 % (0-2); Eosinophils Absolute Auto 0.4 X10*3/uL (0.0-0.4); Eosinophils Percent Auto 5.7 % (0-4); Hematocrit 33.3 % (42.0-52.0); Hemoglobin 10.8 g/dl (14.0-18.0); Imm Gran Abs Auto 0.02 X10*3/uL (0.00-0.03); Imm Gran Pct Auto 0.3 % (0.0-0.4); Lymphocytes Absolute Auto 1.3 X10*3/uL (1.2-4.9); Lymphocytes Percent Auto 18.3 % (20-40); Mean Corpuscular HGB Conc 32.4 g/dl (31.0-36.0); Mean Corpuscular Hemoglobin 32.1 pg (27.0-33.0); Mean Corpuscular Volume 99.1 fL (80.0-98.0); Mean Platelet Volume 9.3 fL (9.4-12.4); Monocytes Absolute Auto 0.8 X10*3/uL (0.1-1.2); Monocytes Percent Auto 12.3 % (2-11); Neutrophils Absolute Auto 4.3 x10*3/uL (2.0-8.3); Platelet Count 167 X10*3/uL (160-400); Red Blood Count 3.36 X10*6/uL (4.60-5.80); Red Cell Distribution Width 13.2 % (11.0-16.0); White Blood Count 6.8 X10*3/uL (4.8-10.8)
[2023-04-05 04:55] LABS: Anion Gap 10 (12-20); Blood Urea Nitrogen 18 mg/dL (9-16); Calcium 8.4 mg/dL (8.4-10.2); Carbon Dioxide 28 mmol/L (22-29); Chloride 106 mmol/L (96-108); Estimated Glomerular Filt Rate > 60; Glucose Random 118 mg/dL (60-115); Potassium 4.4 mmol/L (3.3-5.1); Sodium 140 mmol/L (135-145)
[2023-04-05] MEDS: Aspirin Enteric Coated 81 MG TABLET.DR PO (07:15)
[2023-04-05] MEDS: 0.9 % Sodium Chloride Flush 3 ML SYRINGE IVFLUSH (07:16)
[2023-04-05] MEDS: amLODIPine Besylate 2.5 MG TABLET PO (07:16)
[2023-04-05] MEDS: 0.9 % Sodium Chloride 1,000 ML 80 ML IVCONT (11:20)
--- NOTE | 2023-04-05 11:43 | MHC.CM.PN ---
Addendum entered by Terese Fuentes 04/05/23 13:05: [facility] can accept pt on to service with a 24-72 hour turn around but feel they can see him closer to the 24-48 hour time frame. aware and in agreement w/plan. Pt to d/c to home today - friend Castillo to transport. Original Note: Met with pt to discuss d/c planning: pt resides alone but has supportive family and friends near by. Pt recently at [facility] then home w/[facility] - uses a cane, not yet driving. HCP on file: pt requesting [facility] or [facility] for skilled RN visits: referred to both: [facility] cannot see pt for 3-4 days: waiting on [facility] availability. Pt will call his friend for transport to home. CM to follow.
--- NOTE | 2023-04-05 12:55 | PM.DS ---
DS: Providers Provider Date of Service: 04/05/23 Date of admission: 04/04/23 06:08 Primary care physician: ESTHER Cornejo DS: Diagnosis Discharge Diagnosis (1) Dizziness: Status: Acute (2) Right-sided extracranial carotid artery stenosis: Status: Acute (3) Stroke due to stenosis of right carotid artery: Status: Acute (4) Preoperative cardiovascular examination: Status: Acute (5) Cerebrovascular accident: Status: Acute DS: Summary Hospital Course Hospital Course: Patient underwent right carotid endarterectomy on 04/04/2023. Postoperatively no issues. Was observed overnight in ICU. Postop day 1 A-line and Hunter were removed. He was tolerating a diet. He was neurologically intact and hemodynamically stable. He was subsequently discharged. Status at Discharge Functional status at discharge: independent ambulation Overall status at discharge: patient is back to baseline Time Spent with Patient Time attestation: Total time managing care of this patient today ____ minutes. Discharge coordination time: Greater than 30 minutes Quality: Safe Use of Opioids Does Pt have an Active Cancer Diagnosis on the Problem List?: No Quality: Stroke Does the patient have a stroke diagnosis?: No Physical Exam Vital Signs: Vital Signs: Last Vital Signs Temp 99.2 F 04/05/23 07:00 Pulse 58 04/05/23 12:00 Resp 16 04/05/23 12:00 BP 124/71 04/05/23 12:00 Pulse Ox 96 04/05/23 12:00 O2 Del Method Room Air 04/05/23 12:00 O2 Flow Rate 2 04/04/23 12:27 BMI result Body Mass Index 24.7 Const: General: cooperative, healthy appearing and no acute distress Orientation/consciousness: oriented to person, oriented to place and oriented to time HEENT: Head: Yes normal to inspection Neck: Carotids: no bruits Chest: Chest palpation & inspection: normal inspection of the chest Resp: Effort & Inspection: normal respiratory effort and able to speak in complete sentences Auscultation: clear to auscultation bilaterally Cardio: Rate: regular rate Heart sounds: S1 normal heart sound present and S2 normal heart sound present GI: Inspection: Yes normal to inspection Skin: Other: Neck incision healing well; minimal hematoma General skin exam: no rashes or lesions noted Wounds: no wounds Neuro: General: oriented to person, oriented to place, oriented to time and CN's II-XI intact bilaterally Extrem: General: Yes normal to inspection, Yes full ROM and Yes no clubbing, cyanosis or edema Psych: Appearance: grossly normal and well kempt Speech and movement: Normal speech and movement present Affect: normal affect DS: Data Data Completed and Pending Pending studies at discharge: Pending at discharge 04/04/23 09:19 Surgical [PTH] Routine Labs on day of discharge: Laboratory Results - last 24 hr 04/05/23 04/05/23 04:15 04:15 WBC 6.8 RBC 3.36 L Hgb 10.8 L Hct 33.3 L MCV 99.1 H MCH 32.1 MCHC 32.4 RDW 13.2 Plt Count 167 MPV 9.3 L Immature Gran % (Auto) 0.3 Neut % (Auto) 63.0 Lymph % (Auto) 18.3 L [place] % (Auto) 12.3 H Eos % (Auto) 5.7 H Baso % (Auto) 0.4 Lymph # (Auto) 1.3 [place] # (Auto) 0.8 Eos # (Auto) 0.4 Baso # (Auto) 0.0 Abs Immat Gran (auto) 0.02 Absolute Neuts (auto) 4.3 Absolute Nucleated RBC 0.000 Nucleated RBC % (auto) 0.0 Sodium 140 Potassium 4.4 Chloride 106 Carbon Dioxide 28 Anion Gap 10 L BUN 18 H Creatinine 0.85 Estim Creat Clear Calc 87.0 Estimated GFR > 60 Random Glucose 118 H Calcium 8.4 D Discharge Plan Discharge Anticipated Discharge Date/Time: 04/05/23 12:51 Patient Disposition: Home, Self-Care Discharge Diagnosis: Status post right carotid endarterectomy Referrals: Narda Morris PA [Primary Care Provider] - 1 Week Discharge Medications: New oxycodone 5 mg capsule 5 mg PO Q8H PRN (Reason: pain) Qty: 14 0RF Rx Instructions: Partial Fill upon patient request. Continued amlodipine 2.5 mg tablet 2.5 mg PO DAILY Qty: 90 2RF Protocol: Hold for SBP< HOLD for SBP < : 90 atorvastatin 80 mg Tablet 80 mg PO BEDTIME 30 Days Qty: 30 0RF folic acid 1 mg Tablet 1 mg PO DAILY 30 Days Qty: 30 0RF thiamine mononitrate (vit B1) 100 mg Tablet 100 mg PO DAILY 30 Days Qty: 30 0RF gabapentin 800 mg tablet 800 mg PO BEDTIME gabapentin 800 mg tablet 800 mg PO BID@0900,1200 PRN (Reason: Anxiety) aspirin 81 mg tablet,delayed release (DR/EC) 81 mg PO DAILY Discontinued clopidogrel 75 mg Tablet 75 mg PO DAILY 30 Days Qty: 30 0RF Discharge Orders: Discharge Order (Routine); Ordered 04/05/23 Ordered By: Eliot Carrero Diet: Advance to usual diet Activity on Discharge: As tolerated Stand Alone Forms: Patient Portal Discharge page Care Plan Goals: Stroke prevention Health Concerns: Carotid stenosis Plan of Treatment: Surveillance follow-up of carotids Assessment: Status post carotid endarterectomy
--- NOTE | 2023-04-05 14:08 | HO.POSTANES ---
Post Anesthesia Evaluation Post Anesthesia Evaluation Vital Signs: Vital Signs Temp Pulse Resp BP Pulse Ox O2 Del Method 04/05/23 07:45 97 Room Air 04/05/23 12:00 58 16 124/71 96 Room Air 04/05/23 11:00 80 78 H 130/72 98 Room Air 04/05/23 10:00 74 15 135/77 97 Room Air 04/05/23 09:00 56 14 115/76 96 Room Air 04/05/23 08:00 58 139/63 95 Room Air 04/05/23 07:00 99.2 F 54 13 167/73 H 95 Room Air 04/05/23 06:00 58 16 144/64 H 93 Room Air 04/05/23 05:00 60 18 126/56 L 95 Room Air 04/05/23 03:47 56 16 128/58 L 93 Room Air 04/05/23 03:20 97.9 F 58 18 124/56 L 94 Room Air 04/05/23 03:00 55 13 139/63 95 Room Air Anesthesia: General Endotracheal-GETA Mental Status: Awake Pain Control: Satisfactory Nausea/Vomiting: None Hydration: Adequate Anesthesia-Related Issues: No Anes. Related Issues
== END 2023-04-05 13:30 | disposition home or self-care (01) | DRG 38 ==
LOC: HO.SSSA 06:12 → HO.ICU 12:21
PROVIDERS: Nurse Practitioner; Admitting Provider Surgery Vascular Surgery; PCP Physician Assistant; Visit Provider Surgery Vascular Surgery
PROC: 03CK0ZZ Extirpation of Matter from Right Internal Carotid Artery, Open Approach (ICD-10-PCS; CPT 35301; principal; 2023-04-04 07:30)
DX: I65.21 Occlusion and stenosis of right carotid artery (principal); I69.354 Hemiplegia and hemiparesis following cerebral infarction affecting left non-dominant side; E78.00 Pure hypercholesterolemia, unspecified; F17.210 Nicotine dependence, cigarettes, uncomplicated; Z20.822 Contact with and (suspected) exposure to COVID-19; Z71.6 Tobacco abuse counseling; Z79.82 Long term (current) use of aspirin; Z79.899 Other long term (current) drug therapy
CPT/HCPCS: 36415; 80048; 85025; 85027; 85610; 85730; 86850; 86900; 86901; 87635; 88304; 88311; C1758; C1768; J0461; J0690; J1643; J1885; J2250; J2370; J2405; J2795; J3010

== ENCOUNTER → 2023-04-19 09:44 | Outpatient (BNVA) | payer MEDICARE, MEDICAID, SELFPAY | PROVIDERS: PCP Physician Assistant; Visit Provider Surgery Vascular Surgery | DX: Z48.812 Encounter for surgical aftercare following surgery on the circulatory system (principal); I73.9 Peripheral vascular disease, unspecified | CPT/HCPCS: 99212 ==

== ENCOUNTER 2023-07-10 18:07 | Emergency (ER) | payer MEDICARE, MEDICAID, SELFPAY ==
--- NOTE | ~2023-07-10 | CT_ITS ---
EXAMINATION: NONCONTRAST HEAD CT NONCONTRAST MAXILLOFACIAL CT NONCONTRAST CERVICAL SPINE CT INDICATION INFORMATION: Fall. COMPARISON: MR brain 01/26/2023. CTA head and neck 01/26/2023. TECHNIQUE: Separate noncontrast CT examinations of the head, maxillofacial bones, and cervical spine were performed. Coronal and sagittal images were created for each examination at the technologist workstation. This CT examination was performed using dose optimization techniques as appropriate, variously including the following: *Automated exposure control *Adjustment of mA and/or kV according to patient size (this includes techniques or standardized protocols for targeted exams where dose is matched to indication/reason for exam; i.e. extremities or head) *Use of iterative reconstruction technique DLP: 757, 417 and 387 mGy-cm FINDINGS: Head: Evolution of multiple chronic bilateral basal ganglia infarcts, some larger compared to 01/26/2023, for instance adjacent to the right caudate on axial image 165 series 19. No edematous territorial infarction or intracranial hemorrhage. No abnormal mass effect or midline shift is seen. No extra-axial fluid collections are identified. No hydrocephalus. Proportional prominence of the ventricles and sulcal spaces is consistent with moderate volume loss. Patchy periventricular and deep white matter hypoattenuation is consistent with moderate small vessel ischemic changes. No acute soft tissue abnormality. No calvarial fracture. The mastoid air cells are well aerated. Maxillofacial: Small hematoma in the soft tissues adjacent to the lateral left orbit axial image 44 series 22. No acute maxillofacial fractures are seen. Mild mucosal thickening of the paranasal sinuses. No air-fluid levels. The mandibular heads are well-seated in the condylar fossa. The orbits demonstrate a normal appearance bilaterally. The globes are intact, and there are no suspicious findings to suggest retrobulbar hemorrhage. Cervical spine: No acute compression deformity or traumatic subluxation. Background of advanced multilevel degenerative spondylosis with multiple exuberant anterior disc osteophyte complexes. Various degrees of multilevel central spinal canal stenosis and neural foraminal encroachment. The C1 and C2 vertebral segments are chronically fused. No prevertebral soft tissue thickening. Emphysematous changes in the lung apices with subpleural thickening/scarring. The thyroid gland is unremarkable. Redemonstration of heavily calcified atheromatous plaques in the carotid bifurcations. CT/CT cervical spine wo IV con IMPRESSION: 1. Small hematoma in the soft tissues adjacent to the lateral left orbit. No acute maxillofacial fractures. 2. No acute cervical spinal fracture or traumatic subluxation. Background of advanced degenerative spondylosis. 3. No acute intracranial hemorrhage or extra-axial collection. Innumerable bilateral lacunar infarcts, some of which are increased in size compared to 01/26/2023; if an acute cerebrovascular accident is suspected correlation with an MRI of the brain is recommended.
[2023-07-10 18:16] VITALS: BP 114/73; PULSE 71; RESP 18; TEMP 36.1; O2SAT 97; BMI 23.3
--- NOTE | 2023-07-10 18:19 | ED_ITS ---
HPI - General Adult General Chief complaint: Fall Stated complaint: fall on left side of face Time Seen by Provider: 07/10/23 20:19 Source: patient Mode of arrival: ambulatory Limitations: no limitations History of Present Illness HPI narrative: Patient is a 68 year old assigned male at with a history of PAD and stroke presenting to the emergency department today with left sided facial pain after a mechanical fall. Patient states that he tripped and fell, hitting the left side of his head on the kitchen counter. Patient states that he did not have any loss of consciousness. Patient denies any dizziness, lightheadedness, abdominal pain, nausea, vomiting, fever, chills, blurry vision, double vision, loss of vision, chest pain, difficulty breathing, shortness of breath, back pain, night sweats, pain with urination, increased urinary frequency, increased urinary urgency, blood in his urine or stool, syncope or a near syncopal episode, bowel incontinence, bladder incontinence, bowel retention, bladder retention, or any other complaints at this time. Onset (ago): hour(s) (3) Location: head and face Radiation: non-radiation Severity: mild Severity scale (1-10): 3 Quality: aching and dull Pain Consistency: constant Relieving factors: none Exacerbating factors: none Associated symptoms: denies other symptoms Treatments prior to arrival: none Related Data Home Medications Medication Instructions Recorded Confirmed aspirin 81 mg tablet,delayed 81 mg PO DAILY 03/09/23 03/31/23 release gabapentin 800 mg tablet 800 mg PO BEDTIME 03/09/23 03/31/23 gabapentin 800 mg tablet 800 mg PO BID@0900,1200 PRN Anxiety 03/09/23 03/31/23 Previous Rx's Medication Instructions Recorded atorvastatin 80 mg tablet 80 mg PO BEDTIME 30 days #30 tabs 01/28/23 folic acid 1 mg tablet 1 mg PO DAILY 30 days #30 tabs 01/28/23 thiamine mononitrate (vit B1) 100 100 mg PO DAILY 30 days #30 tabs 01/28/23 mg tablet amlodipine 2.5 mg tablet 2.5 mg PO DAILY #90 tabs 03/29/23 oxycodone 5 mg capsule 5 mg PO Q8H PRN pain #14 caps 04/05/23 Allergies Allergy/AdvReac Type Severity Reaction Status Date / Time No Known Allergies Allergy Verified 07/10/23 18:16 Review of Systems Constitutional: Constitutional: Reports no additional constitutional complaints, Denies chills, Denies fever(s) and Denies night sweats Comments: small abrasion to the left forehead Eyes: Eyes: Reports no additional eye complaints, Denies blurry vision, Denies change in vision, Denies diplopia, Denies eye discharge, Denies loss of vision and Denies eye pain ENT: Denies dizziness Cardiovascular: Cardiovascular: Reports no additional cardiovascular complaints, Denies chest pain, Denies lightheadedness, Denies Loss of Consciousness and Denies dyspnea Respiratory: Respiratory: Reports no additional respiratory complaints and Denies dyspnea Gastrointestinal: Gastrointestinal: Reports no additional gastrointestinal complaints, Denies abdominal pain, Denies melena, Denies hematochezia, Denies change in bowel habits and Denies change in stool character Genitourinary: Genitourinary: Reports no additional male genitourinary complaints, Denies hematuria, Denies oliguria, Denies difficulty urinating, Denies dysuria, Denies urinary frequency, Denies urinary hesitancy, Denies urinary incontinence and Denies urinary urgency Musculoskeletal: Musculoskeletal: Reports no additional musculoskeletal complaints, Denies numbness and Denies tingling Neurologic: Denies dizziness, Denies loss of vision, Denies numbness and Denies tingling Psychiatric: Psychiatric: Reports no additional psychiatric complaints Endocrine: Endocrine: Reports no additional endocrine complaints Hematologic/Lymphatic: Hematologic/Lymphatic: Reports no additional hematologic/lymphatic complaints Allergic/Immunologic: Allergic/Immunologic: Reports no additional allergic/immunologic complaints [facility] Past Medical History Attestation statement: The following information was validated with the patient. Source: old records reviewed and nursing notes reviewed Medical History Arthritis Atrioventricular block, first degree Cerebrovascular accident Elevated cholesterol Hemiparesis affecting left side as late effect of stroke HTN (hypertension) Hx of concussion Use of cane as ambulatory aid Surgical History Hx of colonoscopy Hx of foot surgery Family History Family History Father No problems noted. Mother Cancer Social History Social History Household Members: None Housing: Apartment Are you a primary healthcare recruiter to a significant other at home: No Do you presently have visiting nurse or other home services: Yes (had therapy after stroke in January three times weekly, but visits finished) Alcohol intake: current Alcohol intake frequency: 0-2 drinks per day Alcohol type: hard liquor Patient Tobacco Use Status: Current someday Tobacco user Tobacco use type: Cigarette Cigarette Packs Per Day: 0.2 Cigarettes Per Day: 4.0 Years Smoked: 40 Smoked in Last 30 Days: Yes e-Cigarette/Vaping Use: Currently Using Second Hand Smoke Exposure: No Substance Use Type: Marijuana Advance Directives: Yes Advance Directives on File: Yes Advance Directives Date on File: 01/31/22 service: No Current occupational status: retired Physical Exam ED Vital Signs: Vital Signs - 24 hr 07/10/23 18:16 07/10/23 20:35 Temperature 97.0 F Pulse Rate 71 72 Respiratory Rate 18 18 Blood Pressure 114/73 150/80 H Pulse Oximetry 97 96 Oxygen Delivery Method Room Air Room Air BMI result Body Mass Index 23.3 Const General: cooperative, no acute distress, alert and awake Nutritional Appearance: well nourished Orientation/consciousness: patient oriented x3 Limitations: no limitations [facility] Head images: 1. superficial abrasion to the left forehead, no active bleeding Ears: hearing grossly normal bilaterally and external ears normal General nose exam: Normal external nose present, no nasal discharge noted and no epistaxis Face and sinus: Yes normal facial exam, No abrasion and No laceration Mouth: Normal oral and palatal mucosa present, no drooling and no muffled voice Eyes Eyelids: Yes eyelids normal Conjunctivae: conjunctival abnormal left subconjunctival hemorrhage Pupils: Equal, round and reactive pupils present EOM: EOMs intact bilaterally Neck Neck: Yes normal visual inspection, Yes full ROM and Yes no lymphadenopathy Chest Chest palpation & inspection: normal inspection of the chest Resp Effort & Inspection: normal respiratory effort and able to speak in complete sentences Auscultation: clear to auscultation bilaterally Cardio Rate: regular rate Rhythm: regular rhythm GI Inspection: Yes normal to inspection Palpation (GI): Soft to palpation, not firm, nontender and no guarding Neuro General: patient oriented x3 and moves all extremities Cranial nerves: Yes Equal, round and reactive pupils present Cognition (Neuro): normal cognition Motor exam (neuro): 04/01 motor strength present throughout Sensory Exam: Normal double simultaneous stimulation for sensation Coordination: [id number] test normal Extrem General: Yes normal to inspection, Yes full ROM and Yes capillary refill normal Psych Appearance: grossly normal Mental Status: mental status grossly normal Affect: normal affect Attitude: cooperative Thought process: Normal thought process present Thought content: Normal thought content present Insight: Good insight present (Psych) Course Course Course Narrative: RME; 68 yold male presents to the ED for head trauma after tripping and falling and hittind head on counter. Images of head/Cervical/neck ordered Medications Administered Discontinued Medications Generic Name Dose Route Start Last Admin Trade Name Freq PRN Reason Stop Dose Admin Diphtheria/Tetanus/Acell Pertussis 0.5 ml 07/10/23 20:45 07/10/23 20:54 Diphth,Pertus(Acell),Tet Adult 0.5 Ml Syringe IM 07/10/23 20:46 0.5 ml .ONCE ONE Administration Medical Decision Making Medical Decision Making MDM Narrative: Patient is a 68 year old assigned male at with a history of PAD and stroke presenting to the emergency department today after a mechanical fall. Patient's physical exam was as noted in the physical exam portion of this chart. Patient's facial and C-Spine CTs showed no acute process. Patient's head CT showed innumerable bilateral lacunar infarcts, some of which are increased in size when compared to 01/26/2023. However, patient has no stroke like symptoms at this time. Consulted my attending physician, Dr. Matute, who recommended the patient follow up outpatient with his neurologist. Patient's left forehead abrasion had dermabond applied to it, without incident. I explained my physical exam findings as well as all test results to the patient. I answered all questions asked by the patient. I stressed the importance of the patient taking his medication as prescribed. I stressed the importance of the patient following up with his primary care provider, his neurologist, and an collection specialist. I stressed the importance of the patient returning to the emergency department immediately if his symptoms were to worsen or if he were to develop any dizziness, shortness of breath, difficulty breathing, chest pain, blurry vision, loss of vision, nausea, vomiting, abdominal pain, fever, chills, back pain, or any other complaints. Patient verbalized agreement and understanding with this treatment plan and discharge. Differential Diagnosis Differential Diagnoses: The differential diagnosis associated with the presentation includes Fall Head injury Abrasion Subconjunctival hemorrhage Admission/Observation Consideration of admission/observation: Escalation of care including admission/observation considered Patient would have been admitted to the hospital had his work up had any findings where hospital admission was appropriate and his clinical presentation warranted hospital admission. Independent Interpretation I performed an independent interpretation of an: CT Scan Interpretation: My interpretation is in agreement with the radiologist's impression of these imaging studies. EXAMINATION: NONCONTRAST HEAD CT NONCONTRAST MAXILLOFACIAL CT NONCONTRAST CERVICAL SPINE CT INDICATION INFORMATION: Fall. COMPARISON: MR brain 01/26/2023. CTA head and neck 01/26/2023. TECHNIQUE: Separate noncontrast CT examinations of the head, maxillofacial bones, and cervical spine were performed. Coronal and sagittal images were created for each examination at the technologist workstation. This CT examination was performed using dose optimization techniques as appropriate, variously including the following: *Automated exposure control *Adjustment of mA and/or kV according to patient size (this includes techniques or standardized protocols for targeted exams where dose is matched to indication/reason for exam; i.e. extremities or head) *Use of iterative reconstruction technique DLP: 757, 417 and 387 mGy-cm FINDINGS: Head: Evolution of multiple chronic bilateral basal ganglia infarcts, some larger compared to 01/26/2023, for instance adjacent to the right caudate on axial image 165 series 19. No edematous territorial infarction or intracranial hemorrhage. No abnormal mass effect or midline shift is seen. No extra-axial fluid collections are identified. No hydrocephalus. Proportional prominence of the ventricles and sulcal spaces is consistent with moderate volume loss. Patchy periventricular and deep white matter hypoattenuation is consistent with moderate small vessel ischemic changes. No acute soft tissue abnormality. No calvarial fracture. The mastoid air cells are well aerated. Maxillofacial: Small hematoma in the soft tissues adjacent to the lateral left orbit axial image 44 series 22. No acute maxillofacial fractures are seen. Mild mucosal thickening of the paranasal sinuses. No air-fluid levels. The mandibular heads are well-seated in the condylar fossa. The orbits demonstrate a normal appearance bilaterally. The globes are intact, and there are no suspicious findings to suggest retrobulbar hemorrhage. Cervical spine: No acute compression deformity or traumatic subluxation. Background of advanced multilevel degenerative spondylosis with multiple exuberant anterior disc osteophyte complexes. Various degrees of multilevel central spinal canal stenosis and neural foraminal encroachment. The C1 and C2 vertebral segments are chronically fused. No prevertebral soft tissue thickening. Emphysematous changes in the lung apices with subpleural thickening/scarring. The thyroid gland is unremarkable. Redemonstration of heavily calcified atheromatous plaques in the carotid bifurcations. CT/CT head/brain wo IV con IMPRESSION: 1.? Small hematoma in the soft tissues adjacent to the lateral left orbit. No acute maxillofacial fractures. 2.? No acute cervical spinal fracture or traumatic subluxation. Background of advanced degenerative spondylosis. 3.? No acute intracranial hemorrhage or extra-axial collection. Innumerable bilateral lacunar infarcts, some of which are increased in size compared to 01/26/2023; if? an acute cerebrovascular accident is suspected correlation with an MRI of the brain is recommended. Dictated By: Melissa Chris Signed By: Electronically signed by Juanis 07/10/232018 Radiology Impression Discussion of test interpretation with radiology: I have reviewed the radiologist's reading. Chronic Conditions Patient?s care impacted by: Other (previous stroke, PAD) Discharge Plan Discharge Clinical Impression: Fall, Abrasion of skin, Subconjunctival hemorrhage Patient Disposition: Home, Self-Care Instructions: Subconjunctival Hemorrhage (ED), Abrasion (ED), Skin Adhesive Care (ED), Fall Prevention (ED) Additional Instructions: Do NOT get the glued area wet for at LEAST 7 days. Follow up with your primary care provider, your neurologist (to discuss your CT scan), and an collection specialist. Return to the emergency department immediately if your symptoms worsen or if you develop any dizziness, shortness of breath, difficulty breathing, chest pain, blurry vision, loss of vision, nausea, vomiting, abdominal pain, fever, chills, back pain, or any other complaints. Prescriptions: No Action amlodipine 2.5 mg tablet 2.5 mg PO DAILY Qty: 90 2RF Protocol: Hold for SBP< HOLD for SBP < : 90 atorvastatin 80 mg Tablet 80 mg PO BEDTIME 30 Days Qty: 30 0RF folic acid 1 mg Tablet 1 mg PO DAILY 30 Days Qty: 30 0RF thiamine mononitrate (vit B1) 100 mg Tablet 100 mg PO DAILY 30 Days Qty: 30 0RF gabapentin 800 mg tablet 800 mg PO BEDTIME gabapentin 800 mg tablet 800 mg PO BID@0900,1200 PRN (Reason: Anxiety) oxycodone 5 mg capsule 5 mg PO Q8H PRN (Reason: pain) Qty: 14 0RF Rx Instructions: Partial Fill upon patient request. aspirin 81 mg tablet,delayed release (DR/EC) 81 mg PO DAILY Referrals: Gold Lazaro [Physician] - (Call to establish and follow up with an collection specialist. ) Narda Morris PA [Primary Care Provider] - Interventions: ED Discharge Assessment Last Done: 07/10/23 21:01 Discharge Date/Time: 07/10/23 21:02 Print Language: Pakistani
[2023-07-10 20:35] VITALS: BP 150/80; PULSE 72; RESP 18; O2SAT 96
[2023-07-10] MEDS: Diphth,Pertus(ACell),Tet Adult 0.5 ML SYRINGE IM (20:54)
== END 2023-07-10 21:02 | disposition home or self-care (01) ==
PROVIDERS: Emergency Provider Internal Medicine; PCP Physician Assistant
DX: S00.91XA Abrasion of unspecified part of head, initial encounter (principal); S00.81XA Abrasion of other part of head, initial encounter; H11.32 Conjunctival hemorrhage, left eye; R51.9 Headache, unspecified; M54.2 Cervicalgia; W01.10XA Fall on same level from slipping, tripping and stumbling with subsequent striking against unspecified object, initial encounter; Y93.9 Activity, unspecified; Y92.9 Unspecified place or not applicable; Y99.9 Unspecified external cause status; Z79.899 Other long term (current) drug therapy; F17.210 Nicotine dependence, cigarettes, uncomplicated; Z71.6 Tobacco abuse counseling; Z23 Encounter for immunization
CPT/HCPCS: 70450; 70486; 72125; 90471; 90715; 99284

== ENCOUNTER 2023-07-20 09:49 | Outpatient (REF) | payer MEDICARE, MEDICAID, SELFPAY ==
--- NOTE | ~2023-07-20 | US_ITS ---
EXAMINATION: US EXTRACRANIAL CAROTID DUPLEX, BILATERAL CLINICAL INFORMATION: Cerebral infarction. COMPARISON: None available. TECHNIQUE: Real-time ultrasound and Doppler techniques (integrating B-mode 2-D vascular images, Doppler spectral analysis and color-flow Doppler imaging) were utilized to interrogate the extracranial carotid arteries, the vertebral arteries and proximal subclavian arteries bilaterally. The degree of stenosis is determined by criteria similar to NASCET. FINDINGS: Right Side: 1. There is no atherosclerotic plaque seen in the bifurcation/proximal ICA region status post endarterectomy. 2. The common carotid artery PSV proximally is 113 cm/s and distally 96 cm/s. 3. The proximal internal carotid artery velocities are 104 cm/s systolic and 22 cm/s diastolic. 4. The proximal external carotid artery PSV is 173 cm/s. 5. The vertebral artery shows antegrade flow. 6. The subclavian artery waveforms are normal. Left Side: 1. There is mild atherosclerotic plaque seen in the bifurcation/proximal ICA region. 2. The common carotid artery PSV proximally is 109 cm/s and distally 94 cm/s. 3. The proximal internal carotid artery velocities are 90 cm/s systolic and 15 cm/s diastolic. 4. The proximal external carotid artery PSV is 113 cm/s. 5. The vertebral artery shows antegrade flow. 6. The subclavian artery waveforms are normal. US/US carotid duplex BI IMPRESSION: 1. RIGHT: Normal right internal carotid artery without atherosclerotic plaque or hemodynamically significant stenosis. 2. LEFT: Minimal, non-hemodynamically significant stenosis of the proximal left internal carotid artery corresponding to a 0-49% stenosis by velocity criteria.
== END 2023-07-20 09:50 | disposition home or self-care (01) ==
LOC: HO.US 09:49
PROVIDERS: PCP Physician Assistant; Visit Provider Surgery Vascular Surgery
DX: Z86.73 Personal history of transient ischemic attack (TIA), and cerebral infarction without residual deficits (principal)
CPT/HCPCS: 93880

== ENCOUNTER 2023-08-16 10:09 | Outpatient (AMB) | payer MEDICARE, MEDICAID, SELFPAY ==
[2023-08-16 10:11] VITALS: BP 100/66; BMI 23.2
--- NOTE | 2023-08-16 10:11 | MHC.OFFVIS ---
Intake Vital Signs 08/16/23 10:11 08/16/23 10:19 Height 5 ft 10.5 in Weight 164 lb BMI 23.2 BP 100/66 100/64 Blood Pressure Location Lt brachial Rt brachial Position Sitting Sitting Intake Visit Reasons: 3 mo follow up carotid US 07/20/23 s/p CEA Intake Note: 3 mo follow up carotid US 07/20/23 w/ w/ of Right CEA 04/04/23. Pt states he get occasional dizziness and no blurred vision. Pt states he still has some numbness in the jaw, but improving and no trouble eating or drinking. Accompanied by: Self / Same As Patient Allergies No Known Allergies Allergy (Verified 08/16/23 10:15) HPI 3 mo follow up carotid US 07/20/23 s/p CEA HPI Details Very pleasant 68-year-old gentleman presents for follow-up regarding carotid disease. He actually had undergone right carotid endarterectomy in March of this year. He has had no interval issues. Appears to be doing extremely well. He is being maintained on aspirin and high-dose statin. [facility] Medical History Arthritis Hx of concussion Use of cane as ambulatory aid Hemiparesis affecting left side as late effect of stroke Atrioventricular block, first degree Elevated cholesterol HTN (hypertension) Cerebrovascular accident Surgical History Hx of foot surgery Hx of colonoscopy Family History Father No problems noted. Mother Cancer Social History Household Members: None Housing: Apartment Are you a primary ostomy care nurse to a significant other at home: No Do you presently have visiting nurse or other home services: Yes (had therapy after stroke in January three times weekly, but visits finished) Alcohol intake: current Alcohol intake frequency: 0-2 drinks per day Alcohol type: hard liquor Patient Tobacco Use Status: Current someday Tobacco user Tobacco use type: Cigarette Cigarette Packs Per Day: 0.2 Cigarettes Per Day: 4.0 Years Smoked: 40 e-Cigarette/Vaping Use: Currently Using Second Hand Smoke Exposure: No Substance Use Type: Marijuana Advance Directives Date on File: 01/31/22 service: No Current occupational status: retired Review of Systems Const All systems reviewed & are unremarkable except as noted in HPI and below Reports no additional complaints ENT Reports Normal hearing present Card Denies chest pain, Denies chest pain at rest, Denies chest pain with activity and Denies pedal edema Resp Denies cough GI Denies abdominal pain Musc Denies abnormal gait, Denies muscle cramps and Denies radiating pain into limb Skin/Breast Denies skin ulcer and Denies wounds Neuro Reports Normal hearing present and Denies abnormal gait Psych Reports no additional complaints Physical Exam Vital Signs: Last Vital Signs BP 100/64 08/16/23 10:19 BMI result Body Mass Index 23.2 Const General: cooperative, healthy appearing and comfortable Orientation/consciousness: oriented to person, oriented to place and oriented to time HEENT Head: Yes normal to inspection Neck Neck: Yes normal visual inspection Carotids: no bruits Chest Chest palpation & inspection: normal inspection of the chest Resp Effort & Inspection: normal respiratory effort and able to speak in complete sentences Auscultation: clear to auscultation bilaterally, no crackles, no rales, no rhonchi and no wheezes Cardio Rate: regular rate Rhythm: regular rhythm Heart sounds: S1 normal heart sound present and S2 normal heart sound present Bruits: no carotid bruits Peripheral pulses: Peripheral pulses 2+ throughout GI Inspection: Yes normal to inspection Skin Wounds: no wounds Hair: normal Neuro General: oriented to person, oriented to place and oriented to time Cranial nerves: Yes CN's II-XII intact bilaterally and Yes Normal hearing present Cognition (Neuro): normal cognition Motor exam (neuro): 5/5 motor strength present throughout Extrem Other: venous exam: No significant superficial varicosities or spider telangiectasias, minimal edema General: No clubbing, No cyanosis and No edema Psych Appearance: grossly normal Mental Status: mental status grossly normal Speech and movement: Normal speech and movement present Results Reviewed Results Reviewed: Carotid testing dated 07/20/2023 demonstrates bilateral 0-49% stenosis. Written report and images were reviewed. Assessment & Plan Assessment & Plan (1) Stroke due to stenosis of right carotid artery: Comment: 04/04/2023 - right carotid endarterectomy Code(s): I63.231 - Cerebral infarction due to unspecified occlusion or stenosis of right carotid arteries Plan: In short patient appears to be doing well status post carotid endarterectomy. Will plan for routine 6 month surveillance carotid ultrasound. Risk factor modification was discussed in detail with the patient thank you for allowing us to assist in this patient's care. If there are any questions or concerns please do not hesitate to contact us. Orders: Orders US carotid duplex BI 6 Months I63.231 - Cerebral infarction due to unspecified occlusion or stenosis of right carotid arteries Coding Level of Care Code Est Pt Level 4 (88126) Diagnoses Stroke due to stenosis of right carotid artery I63.231
[2023-08-16 10:19] VITALS: BP 100/64
== END 2023-08-16 10:36 | disposition home or self-care (01) ==
PROVIDERS: PCP Physician Assistant; Visit Provider Surgery Vascular Surgery
DX: I65.21 Occlusion and stenosis of right carotid artery (principal); Z86.73 Personal history of transient ischemic attack (TIA), and cerebral infarction without residual deficits; Z98.62 Peripheral vascular angioplasty status
CPT/HCPCS: 99214

== ENCOUNTER → 2023-08-16 10:09 | Outpatient (BNVA) | payer MEDICARE, MEDICAID, SELFPAY | PROVIDERS: PCP Physician Assistant; Visit Provider Surgery Vascular Surgery | DX: I63.231 Cerebral infarction due to unspecified occlusion or stenosis of right carotid arteries (principal) | CPT/HCPCS: 99212 ==

== ENCOUNTER 2024-09-07 21:04 | Emergency (ER) | payer MEDICARE, SELFPAY ==
--- NOTE | ~2024-09-07 | CT_ITS ---
EXAMINATION: CT HEAD WITHOUT CONTRAST CT CERVICAL SPINE WITHOUT CONTRAST CLINICAL INFORMATION: Fall. Trauma. COMPARISON: CT head and cervical spine from 07/10/2023. TECHNIQUE: Contiguous axial imaging was performed from the skull base to vertex without intravenous administration of contrast. Contiguous axial imaging was performed from the upper chest through the skull base without intravenous administration of contrast. Coronal and sagittal reformats were obtained at the acquisition workstation. This CT examination was performed using dose optimization techniques as appropriate, variously including the following: *Automated exposure control. *Adjustment of mA and/or kV according to patient size (this includes techniques or standardized protocols for targeted exams where dose is matched to indication/reason for exam; i.e. extremities or head). *Use of iterative reconstruction technique. DLP: 1154 mGy-cm FINDINGS: Head: There is no evidence of acute intracranial hemorrhage or edematous territorial infarction. Chronic lacunar infarcts of the bilateral caudate heads, bilateral lentiform nuclei, right greater than left thalami, and tricia. No new loss of kam-white matter differentiation. Scattered and partially confluent hypoattenuation in the periventricular and deep white matter are consistent with moderate microangiopathy. Proportional prominence of the ventricles and sulcal spaces without evidence of obstructive hydrocephalus. No abnormal mass effect or midline shift. No extra-axial fluid collections. Calcific atherosclerotic disease of the intracranial internal carotid and vertebral arteries. No hyperdense vessel sign. Small subgaleal hematoma along the left posterior vertex, measuring up to 0.3 cm in depth. No associated acute osseous abnormalities. Mild mucosal thickening of the paranasal sinuses. The mastoid air cells and middle ear cavities are clear. Cervical Spine: Ankylosis of C1-C2. The atlantooccipital articulations remain well aligned. Straightening of the normal cervical lordosis. Otherwise, there is anatomic alignment of the vertebral bodies and posterior elements. No evidence of acute fracture or subluxation. The vertebral body heights and disc spaces are maintained. Mild to moderate degenerative disc disease from C2-T1. Chronic mild circumferential expansion of the epidural space. Multilevel [id number] disc-osteophyte complex formation. Facet and uncovertebral joint arthropathy leads to osseous encroachment on the neural foramina from C2-T2. There appears to be multifactorial mild to moderate spinal canal stenosis from C3-C6. Exuberant bridging anterior osteophytosis of C2-T2. There is no new prevertebral soft tissue swelling. The thyroid gland and remaining cervical soft tissues are within normal limits. Moderate centrilobular emphysema. The lung apices demonstrate no abnormalities. CT/CT cervical spine wo IV con IMPRESSION: 1. No evidence of acute intracranial hemorrhage or edematous territorial infarction. 2. No evidence of acute fracture or traumatic subluxation of the cervical spine. 3. Moderate underlying microangiopathy and generalized cerebral volume loss. Chronic lacunar infarcts of the deep nuclei and brainstem. 4. Moderate multilevel degenerative spondyloarthropathy of the cervical spine. Most notably on this limited exam without intrathecal contrast, there appears to be multifactorial mild to moderate spinal canal stenosis from C3-C6. 5. Emphysema. Electronically signed by: Bryon Hand DO 09/08/2024 12:18 AM EDT
--- NOTE | ~2024-09-07 | CT_ITS ---
EXAMINATION: CT HEAD WITHOUT CONTRAST CT CERVICAL SPINE WITHOUT CONTRAST CLINICAL INFORMATION: Fall. Trauma. COMPARISON: CT head and cervical spine from 07/10/2023. TECHNIQUE: Contiguous axial imaging was performed from the skull base to vertex without intravenous administration of contrast. Contiguous axial imaging was performed from the upper chest through the skull base without intravenous administration of contrast. Coronal and sagittal reformats were obtained at the acquisition workstation. This CT examination was performed using dose optimization techniques as appropriate, variously including the following: *Automated exposure control. *Adjustment of mA and/or kV according to patient size (this includes techniques or standardized protocols for targeted exams where dose is matched to indication/reason for exam; i.e. extremities or head). *Use of iterative reconstruction technique. DLP: 1154 mGy-cm FINDINGS: Head: There is no evidence of acute intracranial hemorrhage or edematous territorial infarction. Chronic lacunar infarcts of the bilateral caudate heads, bilateral lentiform nuclei, right greater than left thalami, and tricia. No new loss of kam-white matter differentiation. Scattered and partially confluent hypoattenuation in the periventricular and deep white matter are consistent with moderate microangiopathy. Proportional prominence of the ventricles and sulcal spaces without evidence of obstructive hydrocephalus. No abnormal mass effect or midline shift. No extra-axial fluid collections. Calcific atherosclerotic disease of the intracranial internal carotid and vertebral arteries. No hyperdense vessel sign. Small subgaleal hematoma along the left posterior vertex, measuring up to 0.3 cm in depth. No associated acute osseous abnormalities. Mild mucosal thickening of the paranasal sinuses. The mastoid air cells and middle ear cavities are clear. Cervical Spine: Ankylosis of C1-C2. The atlantooccipital articulations remain well aligned. Straightening of the normal cervical lordosis. Otherwise, there is anatomic alignment of the vertebral bodies and posterior elements. No evidence of acute fracture or subluxation. The vertebral body heights and disc spaces are maintained. Mild to moderate degenerative disc disease from C2-T1. Chronic mild circumferential expansion of the epidural space. Multilevel [id number] disc-osteophyte complex formation. Facet and uncovertebral joint arthropathy leads to osseous encroachment on the neural foramina from C2-T2. There appears to be multifactorial mild to moderate spinal canal stenosis from C3-C6. Exuberant bridging anterior osteophytosis of C2-T2. There is no new prevertebral soft tissue swelling. The thyroid gland and remaining cervical soft tissues are within normal limits. Moderate centrilobular emphysema. The lung apices demonstrate no abnormalities. CT/CT head/brain wo IV con IMPRESSION: 1. No evidence of acute intracranial hemorrhage or edematous territorial infarction. 2. No evidence of acute fracture or traumatic subluxation of the cervical spine. 3. Moderate underlying microangiopathy and generalized cerebral volume loss. Chronic lacunar infarcts of the deep nuclei and brainstem. 4. Moderate multilevel degenerative spondyloarthropathy of the cervical spine. Most notably on this limited exam without intrathecal contrast, there appears to be multifactorial mild to moderate spinal canal stenosis from C3-C6. 5. Emphysema. Electronically signed by: Bryon Hand DO 09/08/2024 12:18 AM EDT
[2024-09-07 21:09] VITALS: BP 119/71; BP 140/82; PULSE 64; PULSE 68; RESP 19; TEMP 36.7; O2SAT 94; O2SAT 96; BMI 23.7
[2024-09-07 21:11] VITALS: BP 119/71; PULSE 64; RESP 18; TEMP 36.7; O2SAT 100
--- NOTE | 2024-09-07 21:57 | MHC.EDTECH ---
pt wound cleaned in preparation for provider examination
--- NOTE | 2024-09-07 22:30 | ED_ITS ---
HPI - General Adult General Chief complaint: Fall Stated complaint: mechanical fall, +HS +Blood thinners Time Seen by Provider: 09/07/24 22:29 Source: patient and EMS Limitations: no limitations History of Present Illness HPI narrative: 69-year-old male who has a history of peripheral artery disease, previous CVA currently on Plavix and aspirin, presents for evaluation after a fall. Patient states that he was in his Fridge and when he came out and turned, he lost his balance and fell backwards, striking a table. He denies any prodromal symptoms. No LOC. he does have a history of unsteady gait since his CVA. He denies any neck or back pain. He does report his sustaining a cut to the top of his head. He believes he is up-to-date on his tetanus. He denies any back pain. No abdominal pain. Patient is otherwise feeling well. He does admit to drinking alcohol this evening. Related Data Home Medications ?Medication ?Instructions ?Recorded ?Confirmed aspirin 81 mg tablet,delayed 81 mg PO DAILY 03/09/23 03/31/23 release gabapentin 800 mg tablet 800 mg PO BEDTIME 03/09/23 03/31/23 gabapentin 800 mg tablet 800 mg PO BID@0900,1200 PRN Anxiety 03/09/23 03/31/23 clopidogrel 75 mg tablet 75 mg PO DAILY 08/16/23 Previous Rx's ?Medication ?Instructions ?Recorded atorvastatin 80 mg tablet 80 mg PO BEDTIME 30 days #30 tabs 01/28/23 folic acid 1 mg tablet 1 mg PO DAILY 30 days #30 tabs 01/28/23 thiamine mononitrate (vit B1) 100 100 mg PO DAILY 30 days #30 tabs 01/28/23 mg tablet amlodipine 2.5 mg tablet 2.5 mg PO DAILY #90 tabs 03/29/23 oxycodone 5 mg capsule 5 mg PO Q8H PRN pain #14 caps 04/05/23 Allergies Allergy/AdvReac Type Severity Reaction Status Date / Time No Known Allergies Allergy Verified 09/07/24 21:10 Review of Systems Constitutional: Constitutional: Denies chills and Denies fever(s) Eyes: Eyes: Denies change in vision and Denies other (No redness.) ENT: Denies nasal congestion, Denies nasal discharge, Denies neck pain and Denies sore throat Cardiovascular: Cardiovascular: Denies chest pain, Denies palpitations, Denies dyspnea, Denies dyspnea on exertion and Denies orthopnea Respiratory: Respiratory: Denies cough, Denies dyspnea and Denies dyspnea on exertion Gastrointestinal: Gastrointestinal: Denies abdominal pain, Denies melena, Denies hematochezia, Denies diarrhea, Denies nausea and Denies vomiting Genitourinary: Genitourinary: Denies difficulty urinating, Denies dysuria and Denies urinary urgency Musculoskeletal: Musculoskeletal: Denies back pain, Denies muscle weakness, Denies neck pain and Denies numbness Integumentary/Breasts: Skin/Breast: Denies rash Neurologic: Denies focal weakness and Denies numbness Psychiatric: Psychiatric: Denies depression Endocrine: Endocrine: Denies palpitations PMFSH Past Medical History Medical History Arthritis Hx of concussion Use of cane as ambulatory aid Hemiparesis affecting left side as late effect of stroke Atrioventricular block, first degree Elevated cholesterol HTN (hypertension) Cerebrovascular accident Surgical History Hx of foot surgery Hx of colonoscopy Family History Family History Father No problems noted. Mother Cancer Social History Social History Household Members: None Housing: Apartment Are you a primary progressive care nurse to a significant other at home: No Do you presently have visiting nurse or other home services: Yes (had therapy after stroke in January three times weekly, but visits finished) Alcohol intake: current Alcohol intake frequency: 0-2 drinks per day Alcohol type: hard liquor Patient Tobacco Use Status: Current someday Tobacco user Tobacco use type: Cigarette Cigarette Packs Per Day: 0.2 Cigarettes Per Day: 4.0 Years Smoked: 40 Smoked in Last 30 Days: Yes e-Cigarette/Vaping Use: Currently Using Second Hand Smoke Exposure: No Use of substances other than those prescribed or required for medical reasons: Yes Substance Use Type: Marijuana Advance Directives: Yes Advance Directives on File: Yes Advance Directives Date on File: 01/31/23 Do you have a plan to hurt others: No Plan service: No Current occupational status: retired Physical Exam ED Vital Signs: Vital Signs - 24 hr 09/07/24 21:09 09/07/24 21:11 Temperature 98.0 F 98.0 F Pulse Rate 64 64 Respiratory Rate 19 18 Blood Pressure 119/71 119/71 Pulse Oximetry 96 100 Oxygen Delivery Method Room Air Room Air BMI result Body Mass Index 23.7 Const General: alert and awake Eyes Other: Pupils equal round and reactive to light Resp Auscultation: clear to auscultation bilaterally Cardio Rate: regular rate Rhythm: regular rhythm GI Other: Abdomen is soft and nontender throughout Skin Other: Approximately 3 cm laceration to the left parieto-occipital region. No fluctuance or crepitus. Neuro Other: Electronic Components Assembler is 5/5 bilaterally. No pronator drift. Full range of motion of the lower extremities and upper extremities. Course Course Course Narrative: 12:[address] results returned, no acute process. Patient tolerated procedure. No evidence of acute withdrawal. Clinically sober. He feels comfortable with discharge plan home. Patient is ambulatory at time of discharge. No further questions at this time. Medications Administered Discontinued Medications Generic Name Dose Route Start Last Admin Trade Name Surinderq PRN Reason Stop Dose Admin Lidocaine/Epinephrine 10 ml 09/07/24 23:15 09/07/24 23:23 Lidocaine Hcl 1%/Epi 1:100,000 10 Ml Vial INFILTRATI 09/07/24 23:16 10 ml ONCE ONE Administration Procedures Laceration Laceration 1: Site: scalp Side (If applicable): left Size (cm): 3 Description: linear Depth: simple, single layer Local Anesthetic: lidocaine 1% (with Epi) Amount of anesthesia used (mL): 2 Pre-repair: wound explored and irrigated extensively Technique: other (6 bee. Patient tolerated procedure without immediate complication.) Medical Decision Making Medical Decision Making MDM Narrative: 69-year-old male status post CVA, presents after a fall with head strike, no LOC. On aspirin and Plavix. Complaining of localized pain to the site of laceration. We will repair with bee. Check CT of the brain and cervical spine. Patient without any other prodromal symptoms. Low suspicion for cardiopulmonary in nature given that the patient was able to completely recall the entire event and has baseline unsteady gait. Differential Diagnosis Differential Diagnoses: The differential diagnosis associated with the presentation includes Skull fracture CVA Laceration Abrasion Intracranial bleeding Admission/Observation Consideration of admission/observation: Escalation of care including admission/observation considered Lab Data MDM Lab Attestation statement: I reviewed the patient's lab results. Labs: Lab Results 09/07/24 Range/Units 23:57 Urine Color Yellow Urine Appearance Clear Urine pH 6.0 (5.0-9.0) Ur Specific [place] <= 1.005 (1.005-1.025) Urine Protein Negative (Neg-Trace) mg/dL Urine Glucose (UA) Negative (Negative) mg/dL Urine Ketones Negative (Negative) mg/dL Urine Blood Negative (Negative) Urine Nitrite Negative (Negative) Ur Leukocyte Esterase Negative (Negative) Ethyl Alcohol 167 mg/dL Radiology Impression Discussion of test interpretation with radiology: I have reviewed the rad iologist's reading. Radiologist Impression: [place] [id number] CT Scan Report Signed Patient: Castillo Dempsey MR#: [id number] : 1955 Acct:[id number] Age/Sex: 69 / M ADM Date: 09/07/24 Loc: HO.ED Attending Dr: Ordering Physician: Edgard Pack Date of Service: 09/07/24 Procedure(s): CT head/brain wo IV con Accession Number(s): [id number] cc: Narda Morris; Edgard Pack~ EXAMINATION: CT HEAD WITHOUT CONTRAST CT CERVICAL SPINE WITHOUT CONTRAST CLINICAL INFORMATION: Fall. Trauma. COMPARISON: CT head and cervical spine from 07/10/2023. TECHNIQUE: Contiguous axial imaging was performed from the skull base to vertex without intravenous administration of contrast. Contiguous axial imaging was performed from the upper chest through the skull base without intravenous administration of contrast. Coronal and sagittal reformats were obtained at the acquisition workstation. This CT examination was performed using dose optimization techniques as appropriate, variously including the following: *Automated exposure control. *Adjustment of mA and/or kV according to patient size (this includes techniques or standardized protocols for targeted exams where dose is matched to indication/reason for exam; i.e. extremities or head). *Use of iterative reconstruction technique. DLP: 1154 mGy-cm FINDINGS: Head: There is no evidence of acute intracranial hemorrhage or edematous territorial infarction. Chronic lacunar infarcts of the bilateral caudate heads, bilateral lentiform nuclei, right greater than left thalami, and tricia. No new loss of kam-white matter differentiation. Scattered and partially confluent hypoattenuation in the periventricular and deep white matter are consistent with moderate microangiopathy. Proportional prominence of the ventricles and sulcal spaces without evidence of obstructive hydrocephalus. No abnormal mass effect or midline shift. No extra-axial fluid collections. Calcific atherosclerotic disease of the intracranial internal carotid and vertebral arteries. No hyperdense vessel sign. Small subgaleal hematoma along the left posterior vertex, measuring up to 0.3 cm in depth. No associated acute osseous abnormalities. Mild mucosal thickening of the paranasal sinuses. The mastoid air cells and middle ear cavities are clear. Cervical Spine: Ankylosis of C1-C2. The atlantooccipital articulations remain well aligned. Straightening of the normal cervical lordosis. Otherwise, there is anatomic alignment of the vertebral bodies and posterior elements. No evidence of acute fracture or subluxation. The vertebral body heights and disc spaces are maintained. Mild to moderate degenerative disc disease from C2-T1. Chronic mild circumferential expansion of the epidural space. Multilevel [id number] disc-osteophyte complex formation. Facet and uncovertebral joint arthropathy leads to osseous encroachment on the neural foramina from C2-T2. There appears to be multifactorial mild to moderate spinal canal stenosis from C3-C6. Exuberant bridging anterior osteophytosis of C2-T2. There is no new prevertebral soft tissue swelling. The thyroid gland and remaining cervical soft tissues are within normal limits. Moderate centrilobular emphysema. The lung apices demonstrate no abnormalities. CT/CT head/brain wo IV con IMPRESSION: 1. No evidence of acute intracranial hemorrhage or edematous territorial infarction. 2. No evidence of acute fracture or traumatic subluxation of the cervical spine. 3. Moderate underlying microangiopathy and generalized cerebral volume loss. Chronic lacunar infarcts of the deep nuclei and brainstem. 4. Moderate multilevel degenerative spondyloarthropathy of the cervical spine. Most notably on this limited exam without intrathecal contrast, there appears to be multifactorial mild to moderate spinal canal stenosis from C3-C6. 5. Emphysema. Electronically signed by: Bryon Hand DO 09/08/2024 12:18 AM EDT Dictated By: Javier Hand DO Signed By: <Electronically signed by Javier Hand DO in OV> 09/08/24 0018 DD/ 00 TD/TT: 09/07/24 2315 Wire Winding Machine Tender: ERNIE Prescription Management I considered prescription management with: Pain Medication Chronic Conditions Patient?s care impacted by: Hypertension Discharge Plan Discharge Clinical Impression: Alcohol use Fall Qualifiers: Encounter type: initial encounter Qualified Code(s): W19.XXXA - Unspecified fall, initial encounter Laceration of head Qualifiers: Encounter type: initial encounter Location of open wound of head: scalp Foreign body presence: without foreign body Qualified Code(s): S01.01XA - Laceration without foreign body of scalp, initial encounter Patient Disposition: Home, Self-Care Instructions: Laceration (ED), Staple Care (ED), Fall Prevention (ED) Additional Instructions: Return in 10-12 days for staple removal. Use your cane at all times. Keep the area clean and dry. Do not have direct water on this area. You may clean it gently with warm water and antibacterial soap. Pat it dry. You may also use antibacterial ointment such as bacitracin or Neosporin. Follow-up with your primary care provider. Call this week to schedule a follow- up appointment. Return to the emergency department if you have any worsening of symptoms, or any concerns. Get well soon! Prescriptions: No Action amlodipine 2.5 mg tablet 2.5 mg PO DAILY Qty: 90 2RF Protocol: Hold for SBP< HOLD for SBP < : 90 atorvastatin 80 mg Tablet 80 mg PO BEDTIME 30 Days Qty: 30 0RF folic acid 1 mg Tablet 1 mg PO DAILY 30 Days Qty: 30 0RF thiamine mononitrate (vit B1) 100 mg Tablet 100 mg PO DAILY 30 Days Qty: 30 0RF gabapentin 800 mg tablet 800 mg PO BEDTIME gabapentin 800 mg tablet 800 mg PO BID@0900,1200 PRN (Reason: Anxiety) oxycodone 5 mg capsule 5 mg PO Q8H PRN (Reason: pain) Qty: 14 0RF Rx Instructions: Partial Fill upon patient request. aspirin 81 mg tablet,delayed release (DR/EC) 81 mg PO DAILY clopidogrel 75 mg tablet 75 mg PO DAILY Print Language: [place]
[2024-09-07] MEDS: Lidocaine HCl 1%/Epi 1:100,000 10 ML VIAL INFILTRATI (23:23)
--- NOTE | 2024-09-07 23:23 | PC.NURSE ---
Lidocaine administered by provider. Plan of care ongoing.
[2024-09-08 00:12] LABS: Appearance Urine Clear; Color Urine Yellow; Glucose Urine UA Negative (Negative); Leukocyte Esterase Urine Negative (Negative); Nitrite Urine Negative (Negative); Specific Gravity - Urine <= 1.005 (1.005-1.025); Urine Blood Negative (Negative); Urine Ketones Negative (Negative); Urine Protein Negative (Neg-Trace)
[2024-09-08 00:22] LABS: Ethanol 167 mg/dL
--- NOTE | 2024-09-08 03:37 | PC.NURSE ---
Pt refused D/C vital signs
[2024-09-08 03:38] VITALS: BP 129/71; PULSE 64; RESP 18; TEMP 36.7; O2SAT 100
== END 2024-09-08 03:40 | disposition home or self-care (01) ==
PROVIDERS: Physician Assistant; Emergency Provider Emergency Medicine; PCP Physician Assistant
DX: S01.01XA Laceration without foreign body of scalp, initial encounter (principal); W01.0XXA Fall on same level from slipping, tripping and stumbling without subsequent striking against object, initial encounter; F10.90 Alcohol use, unspecified, uncomplicated; Y90.6 Blood alcohol level of 120-199 mg/100 ml; I10 Essential (primary) hypertension; E78.00 Pure hypercholesterolemia, unspecified; I44.0 Atrioventricular block, first degree; F17.210 Nicotine dependence, cigarettes, uncomplicated; F12.90 Cannabis use, unspecified, uncomplicated; Y93.89 Activity, other specified; Y92.030 Kitchen in apartment as the place of occurrence of the external cause; Y99.9 Unspecified external cause status; Z79.82 Long term (current) use of aspirin; Z79.899 Other long term (current) drug therapy; Z79.02 Long term (current) use of antithrombotics/antiplatelets; Z86.73 Personal history of transient ischemic attack (TIA), and cerebral infarction without residual deficits
CPT/HCPCS: 12002; 36415; 70450; 72125; 80307; 81003; 99284; J2004

== ENCOUNTER 2025-01-18 08:46 | Outpatient (AMB) | payer MEDICARE, MEDICAID, SELFPAY ==
--- NOTE | 2025-01-18 08:51 | MHC.OFFVIS ---
Vital Signs 01/18/25 08:53 Height 5 ft 10 in Weight 173 lb 4.533 oz BMI 24.9 BP 140/78 H Blood Pressure Location Rt brachial Position Sitting Pulse 72 Pulse Source Pulse Oximeter Pulse Oximetry (%) 98 Oxygen Delivery Method Room Air Intake Visit Reasons: COLO SCREENING Intake Note: NEW PATIENT for recall colo. Last documented 2012. Overdue per PCP referral. Chief Complaint; No GI concerns per pt. Inspector Assembly Required: No Accompanied by: Self / Same As Patient Allergies No Known Allergies Allergy (Verified 01/18/25 08:52) HPI HPI COLO SCREENING: Details: 69 year old? male with past medical history of arthritis, HTN, hypercholesteremia, stroke due to stenosis of right carotid artery is here today for pre colonoscopy screening.? Patient was sent to us by his PCP.? Last colonoscopy in 2013, normal colonoscopy. Patient denies any gastrointestinal symptoms in the past or at present.? Denies any personal or family history of gastrointestinal disease, colon polyps, or CRC.? Denies history of difficulty with sedation or anesthesia in the past.? Negative for history of sleep apnea.? Denies any history of cardiac, renal, pulmonary, or hepatic disease.?? No history of infectious? diseases like hepatitis A, B, C, HIV or tuberculosis.? Patient is on low-dose aspirin and Plavix PFSH Medical History Arthritis Hx of concussion Use of cane as ambulatory aid Hemiparesis affecting left side as late effect of stroke Atrioventricular block, first degree Elevated cholesterol HTN (hypertension) Cerebrovascular accident Surgical History Hx of foot surgery Hx of colonoscopy Family History Father No problems noted. Mother Cancer Social History Household Members: None Housing: Apartment Are you a primary child care center administrator to a significant other at home: No Do you presently have visiting nurse or other home services: Yes (had therapy after stroke in January three times weekly, but visits finished) Alcohol intake: current Alcohol intake frequency: 0-2 drinks per day Alcohol type: hard liquor Patient Tobacco Use Status: Current someday Tobacco user Tobacco use type: Cigarette Cigarette Packs Per Day: 0.2 Cigarettes Per Day: 4.0 Years Smoked: 40 e-Cigarette/Vaping Use: Currently Using Second Hand Smoke Exposure: No Substance Use Type: Marijuana Advance Directives Date on File: 01/31/23 service: No Current occupational status: retired Physical Exam Vital Signs: Last Vital Signs Pulse 72 01/18/25 08:53 BP 140/78 H 01/18/25 08:53 Pulse Ox 98 01/18/25 08:53 Oxygen Delivery Method Room Air 01/18/25 08:53 BMI result Body Mass Index 24.9 Const General: healthy appearing, no acute distress and well developed Nutritional Appearance: well nourished Orientation/consciousness: patient oriented x3 Resp Effort & Inspection: normal respiratory effort, able to speak in complete sentences, no tracheal deviation and symmetric chest movement Auscultation: clear to auscultation bilaterally Cardio Rate: regular rate GI Inspection: Yes normal to inspection and No distended Palpation (GI): Soft to palpation, not firm, nontender and No hepatosplenomegaly present Auscultation: normal bowel sounds General: Yes no CVA tenderness Back/Spine/Pelvis Back: no CVA tenderness Skin General skin exam: elasticity normal, turgor normal and dry skin Neuro General: patient oriented x3 Psych Appearance: grossly normal Mental Status: mental status grossly normal Assessment & Plan Assessment & Plan (1) Screen for colon cancer: Code(s): Z12.11 - Encounter for screening for malignant neoplasm of colon Plan Patient denies any GI, cardiac or respiratory symptoms.? Denies any issues with anesthesia in the past.? Denies any history of sleep apnea.? No history infectious diseases in the past or present.? Patient is low-dose aspirin and Plavix. Patient had stroke due to stenosis of right carotid artery. Currently is seeing Dr. Carrero. Patient denies any cardiac or respiratory symptoms. No family or personal history of colon cancer or polyps.? Patient denies melena, hematochezia, unintentional weight loss or ribbon like stools.? Discussed at length the pre-procedure,? prep, diet & medications as well as what to expect prior, during and after the procedure.?? Stressed the importance of good bowel prep.? Recommended the use of Vaseline or Calmoseptine OTC & baby wipes with bowel movements to promote comfort.? ?Patient verbalizes understanding and agrees to plan of care.? He was given the opportunity to ask questions and all questions answered.? We will see him after the procedure.? Medications: New bisacodyl (Dulcolax (bisacodyl)) take 4 tabs at noon the day before your colonoscopy 20 mg (4 x 5 mg) PO ONCE 1 day 4 tabs 0RF Z12.11 - Encounter for screening for malignant neoplasm of colon polyethylene glycol 3350 (Miralax) As directed by gastroenterology department at [facility] 238 grams PO ONCE 238 grams 0RF Z12.11 - Encounter for screening for malignant neoplasm of colon Coding Level of Care Code New Pt Level 3 (67655) Diagnoses Screen for colon cancer Z12.11 Time Spent (min) 40 Comment 30 minutes spent with patient and additional 10 minutes spent reviewing his records
[2025-01-18 08:53] VITALS: BP 140/78; PULSE 72; O2SAT 98; BMI 24.9
--- OUTSIDE RECORDS SUMMARY | 2025-01-18 09:08 | XMS_ITS | Data Portability ---
Author Organization [facility], [facility] Address [address] [place] [address] Care Team Providers Care Auto Dealer Name Role Phone NARDA PETERS Primary Care Provider [phone] FINA MCCLURE OTHER [phone] DANITA SMALL Senior Military Analyst JESSICA CARRERO Vascular Surgeon Assessment Encounter Date Assessment Date Assessment LastModified by Organization Details LastModified Time 08/28/2024 08/28/2024 We completed your Medicare Wellness exam today. This was an opportunity to assess your overall well being including your ability to care for yourself, your mobility, memory, mental health, as well as your safety. With advancing age, it is important to assign someone in your life as your Health Care Proxy (HCP). This person should know what is important to you and what your wishes are for medical procedures if you cannot communicate your wishes yourself (severe illness, unconsciousness ). We discussed having a completed Health Care Proxy form today. In addition, today we started a conversation about your End of Life wishes. These conversations will continue over the years. Please consider reading the book, Being Mortal by Tomás Caldwell to help frame future conversations. We discussed the purpose of a MOLST form (Medical Orders for Life Sustaining Treatment) and completed this form if appropriate per your wishes. Vision and Hearing are senses that are critically important as we age. When impaired, they can contribute to memory loss, falls, and make it harder to drive, talk to family and friends, and engage in the world. Please get your vision checked yearly and your hearing checked when you start to notice hearing loss. We discussed approaches to lowering your risk of heart disease and stroke . Your blood pressure is higher than goal consider losing weight and lowering your salt intake. Your cholesterol is at goal. We discussed cancer screening you may need as well as vaccines to prevent infections. Colon Cancer : Your risk of colon cancer is higher than average due to personal history of colon polyps. Due for colorectal screenin. If you are not planning to have a colonoscopy please screen with stool cards yearly. Breast Cancer : Breast Cancer Screening (mammography). Next mammogram due: . Cervical Cancer Screening (pap test). Next pap due: . Prostate Cancer : PSA testing for ages 55-69 risks and benefits discussed patient declines testing. Influenza Vaccine : Flu shot yearly. Tetanus Vaccine : Every 10 years. Due: 2023. The following vaccines are available from your pharmacy: Pneumonia Vaccine : PCV20: once after age 65. Shingles Vaccine : 2 shots after age 50. Covid Vaccine : Make sure you have received the most up to date covid vaccine. Your personal health goal for the year is: [email or web address] Not available 08/28/2024 16:22:32 10/02/2024 10/02/2024 RTC 1 yr CEE or prn [email or web address] Not available 10/02/2024 17:45:53 Plan of Treatment Reminders Order Date Submit Date Provider Last Modified By Organization Details Last Modified Time Details Appointments Comp rehe nsiv e Eye Exam , 20 Min 2024 11:00A Valentín Colmenares, OD Not available Not available Not available Lab avery mendes 2023 [facility], [address] [place] [address], [id number], 12/24/2024 14:10:17 dotty min B1 (thi faye e), derrek d 2023 024 [facility], [address] [place] [address], [address], 12/24/2024 14:10:17 CBC 2023 024 [facility] ([facility], [address] [place] [address], [address], 12/24/2024 14:10:17 Referral urol ogis t refe rral - poor urin e stre am, pls eval and tx, pt of Heat her Lisa SANTANA 2023 [email or web address] Judah Field MD, [address] [place] [address] [address] [address], [place], [address], 08/29/2024 08:53:[address] refe rral - hx of CVA in 2022 , with disha omat ous poly ps in 2012 , melisa ent of Heat her Lisa y, PA, need s a colo nosc opy, over due. 2023 [email or web address] [facility], [address] [place] [address] , [facility], [place], [address], 08/29/2024 08:52:37 Procedures None rubi rded . Surgeries None rubi rded . Imaging LDCT , rosalva t, for lung canc er scre enin g - Plea se enro ll this melisa ent in the LDCT Lung Canc er Scre enin g Prog vika (for orde ring , foll ow up and bianca ed deci flavio hayder ng) - 30 pack year smok er 2023 [facility], [address] [place], [address], 10/08/2024 16:12:07 Medication Orders ator vast atin 80 mg tabl et 2023 [facility][id number], [address], [place], [id number], 08/28/2024 09:12:56 clop idog rel 75 mg tabl et 2023 [id number], [address], [place], [id number], 08/28/2024 09:12:56 amlo dipi ne 2.5 mg tabl et 2023 [email or web address] [facility] #27375, [address], [place], [id number], 09/24/2024 14:12:32 tammy pent in 800 mg tabl et 2023 [facility] #19926, [address], [place], [id number], 08/28/2024 09:12:56 foli c acid 1 mg tabl et 2023 [facility] #22518, [address], [place], [id number], 08/28/2024 09:12:56 thia mine HCl (vit faye B1) 100 mg tabl et 2023 [facility] #98861, [address], [place], [id number], 08/28/2024 09:12:56 Patient TargetsNo targets recorded. Patient Instructions Encounter Date Encounter Id Patient Instructions Last Modified By Organization Details Last Modified Time 02/11/2023 [id number] I am aware of e inpatient facility discharge medications, the medication list above has been reconciled with those medications and reflects my understanding of an up to date medication list for this patient. CCM: The provider and patient discussed the Chronic Care Management program, including the services provided, and any fees associated with them. [email or web address] Not available 02/11/2023 08:12:55 08/28/2024 [id number] CCM: The provide r and patient discussed the Chronic Care Management program, including the services provided, and any fees associated with them. [email or web address] Not available 08/28/2024 08:32:48 Reason for Referral Creative Services Coordinator Referral for Screening for malignant neoplasm of colon hx of CVA in 2022, with adenomatous polyps in 2012, patient of ESTHER Cornejo, needs a colonoscopy, overdue. Referring Physician: Trev Sewell, Family Medicine, Encounter Date: 08/28/2024 Urologist Referral for Poor stream of urine poor urine stream, pls eval and tx, pt of Narda SANTANA Referring Physician: Trev Sewell, Family Medicine, Encounter Date: 08/28/2024 Results Created Date Observation Date Name Description Value Unit Range Abnormal Flag Note LastModifiedBy Organization Detail LastModifiedTime 08/28/2008/28/2024 CBC WBC 5.58 K/? ? ?L 4.23-9 .07 Not Available [address], [address], 08/28/2024 10:42:28 08/28/2008/28/2024 CBC RBC 4.96 M/? ? ?L 4.63-6 .08 Not Available [address], [address], 08/28/2024 10:42:28 08/28/2008/28/2024 CBC HGB 15.7 g/dL 13.7-1 7.5 Not Available [address], [address], 08/28/2024 10:42:28 08/28/2008/28/2024 CBC HCT 47.3 % 40.1-5 1.0 Not Available [address], [address], 08/28/2024 10:42:28 08/28/2008/28/2024 CBC MCV 95.4 fL 79.0-9 2.2 high Not Available [address], [address], 08/28/2024 10:42:28 08/28/2008/28/2024 CBC MCH 31.7 pg 25.7-3 2.2 Not Available [address], [address], 08/28/2024 10:42:28 08/28/2008/28/2024 CBC MCHC 33.2 g/dL 32.3-3 6.5 Not Available [address], [address], 08/28/2024 10:42:28 08/28/2008/28/2024 CBC plt 251 K/? ? ?L 163-33 7 Not Available [address], [address], 08/28/2024 10:42:28 08/28/2008/28/2024 CBC MPV 9.6 fL 9.4-12 .4 Not Available [address], [address], 08/28/2024 10:42:28 08/28/2008/28/2024 CBC neut% 65.0 % 34.0-6 7.9 Not Available [address], [address], 08/28/2024 10:42:28 08/28/2008/28/2024 CBC neut# 3.63 1.78-5 .38 Not Available [address], [address], 08/28/2024 10:42:28 08/28/2008/28/2024 CBC lymph % 23.7 % 21.8-5 3.1 Not Available [address], [address], 08/28/2024 10:42:28 08/28/2008/28/2024 CBC lymph # 1.32 K/? ? ?L 1.32-3 .57 Not Available [address], [address], 08/28/2024 10:42:28 08/28/2008/28/2024 CBC mono% 9.3 % 5.3-12 .2 Not Available [address], [address], 08/28/2024 10:42:28 08/28/20 24 08/28/2024 CBC mono# 0.52 0.30-0 .82 Not Available [address], [address], 08/28/2024 10:42:28 08/28/20 24 08/28/2024 CBC eo% 0.9 % 0.8-7. 0 Not Available [address], [address], 08/28/2024 10:42:28 08/28/20 24 08/28/2024 CBC eo# 0.05 0.04-0 .54 Not Available [address], [address], 08/28/2024 10:42:28 08/28/20 24 08/28/2024 CBC baso% 0.7 % 0.2-1. 2 Not Available [address], [address], 08/28/2024 10:42:28 08/28/20 24 08/28/2024 CBC baso# 0.04 0.00-0 .08 Not Available [address], [address], 08/28/2024 10:42:28 08/28/20 24 08/28/2024 CBC RDW-CV 12.2 % 11.6-1 4.4 Not Available [address], [address], 08/28/2024 10:42:28 08/28/20 24 08/28/2024 CBC Ig% 0.400 % 0.000- 1.500 Ig % >0.5 Indic ates possi ble Left Shift Not Available [address], [address], 08/28/2024 10:42:28 08/28/20 24 08/28/2024 CBC Ig# 0.020 0.000- 0.093 Not Available [address], [address], 08/28/2024 10:42:28 08/28/20 24 08/28/2024 CBC NRBC% 0.0 % 0.0-0. 2 Not Available [address], [address], 08/28/2024 10:42:28 08/28/20 24 08/28/2024 CBC NRBC# 0.000 0.000- 0.012 Not Available [address], [address], 08/28/2024 10:42:28 08/28/2008/28/2024 COMP. METAB OLIC PANEL glucose 104 mg/dL 70-100 high Not Available [address], [address], 08/28/2024 16:06:20 08/28/20 24 08/28/2024 COMP. METAB OLIC PANEL BUN 17 mg/dL 7-18 Not Available [address], [address], 08/28/2024 16:06:20 08/28/20 24 08/28/2024 COMP. METAB OLIC PANEL creatinine 1.0 mg/dL 0.8-1. 3 Not Available [address], [address], 08/28/2024 16:06:20 08/28/20 24 08/28/2024 COMP. METAB OLIC PANEL B/C 17.0 ratio Not Available [address], [address], 08/28/2024 16:06:20 08/28/20 24 08/28/2024 COMP. METAB OLIC PANEL GFR >=60ML /MIN mL/mi n normal >=60m L/min - Shelly l or midly reduc ed <60mL /min- Decre ased kidne y funct ion <15mL /min - Kidne y failu re [facility] calcu lates estim ated Glome rular Filtr ation Rate (eGFR ) using the Chron ic Kidne y Disea se Epide miolo gy Colla borat ion (CKD- EPI) Equat ion (Kristina calvo et. al 2020) as recom theodora d by the Natio nal Kidne y Found ation . eGFR is based on age, serum creat inine , and sex. CKD-E PI does not calcu late eGFR by race, does not apply to child maxi (age <18 years ), and shoul d not be used in pregn korina. Not Available [address], [address], 08/28/2024 16:06:20 08/28/20 24 08/28/2024 COMP. METAB OLIC PANEL sodium 141 mmol/ L 136-14 5 Not Available [address], [address], 08/28/2024 16:06:20 08/28/20 24 08/28/2024 COMP. METAB OLIC PANEL potassium 4.2 mmol/ L 3.5-5. 1 Not Available [address], [address], 08/28/2024 16:06:20 08/28/20 24 08/28/2024 COMP. METAB OLIC PANEL chloride 102 mmol/ L 96-107 Not Available [address], [address], 08/28/2024 16:06:20 08/28/20 24 08/28/2024 COMP. METAB OLIC PANEL anion gap 11.9 5.0-15 .0 Not Available [address], [address], 08/28/2024 16:06:20 08/28/20 24 08/28/2024 COMP. METAB OLIC PANEL CO2 27 mmol/ L 21-32 Not Available [address], [address], 08/28/2024 16:06:20 08/28/20 24 08/28/2024 COMP. METAB OLIC PANEL calcium 9.8 mg/dL 8.5-10 .3 Not Available [address], [address], 08/28/2024 16:06:20 08/28/20 24 08/28/2024 COMP. METAB OLIC PANEL total protein 8.2 g/dL 6.4-8. 2 Not Available [address], [address], 08/28/2024 16:06:20 08/28/20 24 08/28/2024 COMP. METAB OLIC PANEL albumin 4.4 g/dL 3.4-5. 0 Not Available [address], [address], 08/28/2024 16:06:20 08/28/20 24 08/28/2024 COMP. METAB OLIC PANEL globulin 3.8 g/dL Not Available [address], [address], 08/28/2024 16:06:20 08/28/20 24 08/28/2024 COMP. METAB OLIC PANEL A/G 1.2 ratio 0.8-2. 0 Not Available [address], [address], 08/28/2024 16:06:20 08/28/20 24 08/28/2024 COMP. METAB OLIC PANEL total bilirubin 1.40 mg/dL 0.00-1 .00 high Not Available [address], [address], 08/28/2024 16:06:20 08/28/20 24 08/28/2024 COMP. METAB OLIC PANEL AST 15 U/L 0-37 Not Available [address], [address], 08/28/2024 16:06:20 08/28/20 24 08/28/2024 COMP. METAB OLIC PANEL ALT 23 U/L 6-63 Not Available [address], [address], 08/28/2024 16:06:20 08/28/2008/28/2024 COMP. METAB OLIC PANEL alk. phos. 89 U/L 50-136 Not Available [address], [address], 08/28/2024 16:06:20 08/28/2008/28/2024 LIPID PANEL cholesterol 230 mg/dL <200 mg/dl Randal able 200-2 39 mg/dl Borde rline High >240 mg/dl High Not Available [address], [address], 08/28/2024 16:06:21 08/28/20 24 08/28/2024 LIPID PANEL triglyceride s 131 mg/dL <150 mg/dL Shelly l 150-1 99 mg/dL Borde rline High 200-4 99 mg/dL High >500 mg/dL Very High Not Available [address], [address], 08/28/2024 16:06:21 08/28/2008/28/2024 LIPID PANEL direct HDL 64 mg/dL <40 mg/dl - Major Risk for CHD >60 mg/dl - Negat jenni Risk for CHD Not Available [address], [address], 08/28/2024 16:06:21 08/28/2008/28/2024 URIC ACID uric acid 6.0 mg/dL 3.5-7. 2 Not Available [address], [address], 08/28/2024 16:06:21 08/28/2008/28/2024 LDL - CALCU LATED LDL - calculated 140 RISK CATEG ORY LDL GOAL _ CHD or CHD Risk Equiv alent s <100 mg/dl (10-y ear risk >20%) 2+ Risk Facto rs <130 mg/dl (10-y ear risk <= 20%) 0-1 Risk Facto r? <160 mg/dl ? Almos t all peopl e with 0-1 risk facto r have a 10 year risk <10%, thus 10 year risk asses ment in peopl e with 0-1 risk facto r is not nectaurn manny. Not Available [facility] [address] [facility], [place], [address], 08/28/2024 16:06:22 09/08/20 24 09/07/2024 CT, head, w/o contr ast No observ ation record ed. [address] [place], [address], 09/11/2024 07:48:33 09/08/20 24 09/07/2024 CT, cervi marcelino spine No observ ation record ed. [address] [place], [address], 09/11/2024 07:48:33 10/08/20 24 10/08/2024 LDCT, chest , for lung cance r scree rae No observ ation record ed. [facility] [address] [place], [address], 10/09/2024 10:40:13 10/16/20 24 10/08/2024 LDCT, chest , for lung cance r scree rae No observ ation record ed. [facility] [address] [place], [address], 10/16/2024 14:09:08 Result Notes None recorded. Problems Name Problem SNOMED Code Status Onset Date Resolution Date Notes Provider Name and Address Organization Details Recorded Time Impotenc e Active Leticia Tellez, RN, BSN [place], [place] [facility] 5 16:35:03 Gout 87168225 Active 2014 ESTHER Cornejo [address] [place] [address], [phone] , [facility] 4 14:07:31 Osteoart hritis 590200683 Active first mtp joint bilatera lly ESTHER Cornejo [address] [place] [address], [address] , [facility] 4 14:07:40 [place] ht [id number] Completed 201809/24/2021 ESTHER Cornejo [address] [place] [address], [address] , [facility] 1 11:04:19 Cerebrov ascular accident 841906335 Active 2022 ESTHER Cornejo [address] [place] [address], [address] , [facility] 4 14:07:26 Carotid artery stenosis 09953786 Active 2022 80% stenosis RCA; s/p endarter ectomy 04/04/23, on plavix, aspirin; seeing [facility] vascular ESTHER Cornejo [address] [place] [address], [address] , [facility] 4 14:07:09 Hematoma of brain 594995217 Active 2022 small. found on head CT s/p fall 07/10/23 ESTHER Cornejo [address] [place] [address], [address] , [facility] 3 13:59:38 History of cerebrov ascular accident 379547161 Active 2023 [place] d/c note 01/28/23 - small right pontine infarct ESTHER Cornejo [address] [place] [address], [address] , [facility] 4 14:07:28 Alcohol abuse 53674307 Active 2023 ESTHER Cornejo [address] [place] [address], [address] , [facility] 4 14:09:24 Mixed hyperlip idemia 938653603 Active ESTHER Cornejo [address] [place] [address], [address] , [facility] 4 14:07:35 Open wound of finger 410873342 Completed 200602/27/2013 Not Available [facility] 3 03:14:03 Essentia l hyperten flavio 17281224 Active ESTHER Cornejo [address] [place] [address], [address] , [facility] 4 14:07:04 Common cold 55847568 Completed 200702/27/2013 Not Available [facility] 3 03:14:03 Benign neoplasm of large intestin e 44393608 Completed 09/24/2021 ESTHER Cornejo [address] [place] [address], [address] , [facility] 1 10:33:50 Acute maxillar y sinusiti s 13272505 Completed 200702/27/2013 Not Available [facility] 3 03:14:03 Neuralgi a 73723953 Active ESTHER Cornejo [address] [place] [address], [address] , [facility] 4 14:07:38 Tobacco user 591643970 Active ESTHER Cornejo [address] [place] [address], [address] , [facility] 4 14:07:43 Neck pain 90535144 Completed 10/17/2013 Not Available [facility] 3 02:00:36 Neck pain 44068325 Completed 12/21/2010 Not Available [facility] 3 03:14:03 Neck pain 57448369 Completed 11/10/2010 Not Available [facility] 3 03:14:03 Problem Notes None recorded. Procedures Surgical History Date Name Laterality Status Provider Name and Address Organization Details Recorded Time 024 Refraction completed Carmen Colmenares OD [address] [place] [address], [phone], [facility] 10/02/2024 17:43:35 024 Smoking cessation counseling completed Lisa Espinosa MA [facility] 09/12/2024 14:47:46 024 Suture/staple Removal completed Ramona Douglas [facility] 09/24/2024 13:40:21 024 Smoking cessation counseling completed Jackie Morrison MA [facility] 08/27/2024 16:56:25 024 Medicare Wellness Visit completed Jackie Morrison MA [facility] 08/27/2024 16:56:00 024 Alcohol overuse counseling completed Trev Sewell MD [address] [place] [address], [address], [facility] 08/28/2024 16:32:32 024 Advanced Care Planning completed Jackie Morrison MA [facility] 08/27/2024 16:57:17 023 Smoking cessation counseling completed ESTHER Cornejo [address] [place] [address], [address], [facility] 02/11/2023 07:56:13 023 Post hospital/SNF follow-up/Transit ional Care completed ESTHER Cornejo [address] [place] [address], [phone], [facility] 02/11/2023 07:56:30 021 Smoking cessation counseling completed ESTHER Cornejo [address] [place] [address], [address], [facility] 09/24/2021 10:14:55 Medicare Wellness Visit completed Elisha Vizcaino MA [facility] 09/17/2021 16:34:52 Alcohol use screening completed Elisha Vizcaino MA [facility] 09/17/2021 16:34:52 Cardiovascular disease risk reduction counseling completed Elisha Vizcaino MA [facility] 09/17/2021 16:34:52 Medicare Risk for Falls Screen completed Debo Simmons MA [facility] 09/24/2021 10:05:56 021 Smoking cessation counseling completed ESTHER Cornejo [address] [place], [address], [facility] 09/14/2021 13:54:20 021 Smoking cessation counseling completed Jennie Esteves MA [facility] 09/08/2021 13:38:05 020 Smoking cessation counseling completed ESTHER Cornejo [address] [place], [address], [facility] 10/30/2020 08:39:29 020 Telephonic Visit completed Susi Cedeno [facility] 10/30/2020 08:05:19 019 Smoking cessation counseling completed Espinoza Wilkins [facility] 04/09/2019 11:08:55 019 Smoking cessation counseling completed Rufina Eric [facility] 03/21/2019 08:38:50 016 Refraction completed Azul Hardin [facility] 08/04/2016 14:20:27 015 Smoking cessation counseling completed Yissel Heart [facility] 11/10/2015 16:06:13 endarterectomy completed ESTHER Garcia [address] [place], [address], [facility] 04/05/2023 13:35:22 Imaging Results Imaging Date Name Status LastModified by Organiz [facility] Details LastModified Time 09/07/2024 CT, head, w/o contrast completed [address], [address], 09/11/2024 07:48:33 09/07/2024 CT, cervical spine completed [address], [address], 09/11/2024 07:48:33 10/08/2024 LDCT, chest, for lung cancer screening completed [facility] [address] [place], [address], 10/09/2024 10:40:13 10/08/2024 LDCT, chest, for lung cancer screening completed [facility] [address] [place], [address], 10/16/2024 14:09:08 Procedure Notes None recorded. Medical Equipment None Reported. Allergies No known drug allergies Medications Name Sig Start Date Stop Date Status Note LastModified by Organization Details LastModified Time atorvasta tin 40 mg tablet TAKE 1 TABLET BY MOUTH EVERY DAY 02/03 completed on 80 mg Not Available Not Available Not Available atorvasta tin 80 mg tablet TAKE 1 TABLET BY MOUTH EVERY DAY active Not Available Not Available No t Available nicotine 14 mg/24 hr daily transderm al patch Nicotine 14 mg/24 hr transder mal film, extended release, 1 patch topicall y daily 02/11 completed per [facility] discharg e summary 02/04/23, not reconcil ed with patient 02/09/23, not using 02/11/23 silvestre Not Available Not Available Not Available nabumeton e 750 mg tablet Take 1 tablet twice a day by oral route. 2010 active Not Available Not Available Not Avai lable hydrocodo ne 5 mg-acetam inophen 325 mg tablet TAKE 1 TABLET BY MOUTH EVERY 4 HOURS NEEDED FOR PAIN 02/03 completed Not Available Not Available Not Available prednison e 20 mg tablet Take by oral route. 2 tablets daily for 5 days in the am 08/04 completed Not Available Not Available Not Available amlodipin e 2.5 mg tablet TAKE 1 TABLET BY MOUTH EVERY DAY 2024 active Not Available Not Available Not Avai lable acetamino phen 300 mg-codein e 30 mg tablet TK 1 T PO Q 8 H 03/21 completed Stopped 03/21/19 DO Not Available Not Available Not Available clopidogr el 75 mg tablet TAKE 1 TABLET BY MOUTH EVERY DAY 2024 active Not Available Not Available Not Avai lable aspirin 81 mg tablet,de layed release TAKE 1 TABLET BY MOUTH EVERY DAY active Not Available Not Available No t Available Nicotrol 10 mg inhalatio n cartridge Inhale by inhalati on route. 1 cartridg e every one to two hours 6-16 per day best if continue s puffing for 20 minutes . Use 15 minutes prior to when woyuld usually have smoked 02/11 completed Not listed on [facility] discharg e summary 02/04/23, not reconcil ed with patient 02/09/23, not using 02/11/23 silvestre Not Available Not Available Not Available tramadol 50 mg tablet Take 1 tablet every 6 hours by oral route. 2011 active Not Available Not Available Not Avai lable cefadroxi l 500 mg capsule 02/03 completed Not Available Not Available Not Available oxycodone -acetamin ophen 5 mg-325 mg tablet TK 1 TO 2 TS PO QHS PRN P active Not Available Not Available No t Available famotidin e 20 mg tablet TK 1 T PO HS FOR 7 DAYS active Not Available Not Available No t Available gabapenti n 800 mg tablet TAKE 1 TABLET BY MOUTH THREE TIMES DAILY 2023 active Not Available Not Available Not Avai lable doxycycli ne monohydra te 100 mg capsule 02/03 completed Not Available Not Available Not Available diphenhyd ramine 25 mg capsule TK ONE C PO Q 6 H PRF ITCHING active Not Available Not Available No t Available oxycodone 5 mg capsule TAKE 1 CAPSULE BY MOUTH EVERY 8 HOURS NEEDED FOR PAIN 08/28 completed Not Available Not Available Not Available indometha manny 50 mg capsule Take 1 capsule 3 times a day by oral route. active Not Available Not Available No t Available gabapenti n 300 mg capsule 1 bid x2 days then 1tid x2 d and work up grad to 2 tabs tid 2011 active Not Available Not Available Not Avai lable omeprazol e 20 mg capsule,d elayed release Take 1 capsule every day by oral route. 2012 active Not Available Not Available Not Avai lable aspirin 81 mg chewable tablet Chew 1 tablet every day by oral route. 02/09 completed Per [facility] summary he is to take delayed release aspirin 81 mg 02/04/23 Not Available Not Available Not Available folic acid 1 mg tablet TAKE 1 TABLET BY MOUTH DAILY 2024 active Not Available Not Available Not Avai lable amoxicill in 250 mg capsule TK ONE C PO Q 8 H FOR 7 DAYS active Not Available Not Available No t Available hydroxyzi ne HCl 25 mg tablet TK 1 T PO QID PRN active Not Available Not Available No t Available lorazepam 1 mg tablet Take 1 tablet every day by oral route at bedtime. 2011 active Not Available Not Available Not Avai lable Viagra 100 mg tablet Take 1/2 tablet to 1 tab by oral route prn approxim ately 1/2 to 4 hours before sexual activity . Don't take with meals. 08/04 completed Not Available Not Available Not Available ibuprofen 600 mg tablet TK 1 T PO QID PRN 03/21 completed Stopped 03/21/19 DO Not Available Not Available Not Available Vitamin B-1 100 mg tablet TAKE 1 TABLET BY MOUTH DAILY 2024 active Not Available Not Available Not Avai lable naproxen 500 mg tablet TAKE 1 TABLET BY MOUTH TWICE DAILY 02/11 completed Not listed on [facility] summary 02/04/23, not reconcil ed with patient 02/09/23 Not Available Not Available Not Available Prilosec OTC 20 mg tablet,de layed release Take 1 tablet every day by oral route. 08/04 completed Not Available Not Available Not Available folic acid 1mg tablet daily. 08/28 completed per [facility] summary 02/04/23, not reconcil ed with patient 02/09/23 Not Available Not Available Not Available omeprazol e 20 mg tablet,de layed release 08/04 completed Not Available Not Available Not Available Vicodin 5 mg-300 mg tablet Take 1 tablet 3 times a day by oral route as needed for pain. 08/04 completed Not Available Not Available Not Available Vitals Date Recorded Body weight Body mass index (BMI) Body height Heart rate Oxygen saturation Oxygen saturation in Arterial blood by Pulse oximetry Systolic blood pressure Diastolic blood pressure Provider Name and Address Organization Details Last Updated DateTime 2 14483.5 3 g 23.3 kg/m2 176.53 cm 86 /min 97 % 97 % 186 mm[Hg] 100 mm[Hg] Nina Bear MA [facility] 2 11:50:34 Date Recorded Systolic blood pressure Diastolic blood pressure Provider Name and Address Organization Details Last Updated DateTime 10/28/2022 158 mm[Hg] 88 mm[Hg] DAVID AGARWAL NP [address] [place] [address], [phone], [facility] 10/29/2022 09:13:39 Date Recorded Body height Body mass index (BMI) Body weight Heart rate Systolic blood pressure Diastolic blood pressure Provider Name and Address Organization Details Last Updated DateTime 3 176.53 cm 25 kg/m2 61018.8 9 g 80 /min 151 mm[Hg] 86 mm[Hg] Susi Cedeno MA [facility] 3 08:20:12 Date Recorded Systolic blood pressure Diastolic blood pressure Systolic blood pressure Diastolic blood pressure Provider Name and Address Organization Details Last Updated DateTime 02/11/2023 142 mm[Hg] 80 mm[Hg] 128 mm[Hg] 82 mm[Hg] ESTHER Cornejo [address] [place] [address], [phone] , [facility] 3 08:53:05 Date Recorded Body weight Heart rate Systolic blood pressure Diastolic blood pressure Provider Name and Address Organization Details Last Updated DateTime 08/28/2024 87289.74 g 104 /min 138 mm[Hg] 98 mm[Hg] Jackie Morrison MA [facility] 08/28/2024 08:40:52 Date Recorded Body weight Heart rate Provider Name and Address Organization Details Last Updated DateTime 09/24/2024 95506.74 g 87 /min Debo Simmons [facility] 09/24/2024 12:22:31 Date Recorded Systolic blood pressure Diastolic blood pressure Systolic blood pressure Diastolic blood pressure Provider Name and Address Organization Details Last Updated DateTime 09/24/2024 156 mm[Hg] 90 mm[Hg] 142 mm[Hg] 76 mm[Hg] ESTHER Cornejo [address] [place] [address], [phone] , [facility] 14:06:53 Date Recorded Systolic blood pressure Diastolic blood pressure Provider Name and Address Organization Details Last Updated DateTime 09/07/2024 119 mm[Hg] 71 mm[Hg] ESTHER Cornejo [address] [place] [address], [phone], [facility] 09/12/2024 12:35:22 Social History Question Answer Notes LastModified by Organizat ion Details LastModified Time Tobacco Smoking Status Current Every Day Smoker 1/2 packs per day - 04/02/2019 Not Available [facility] 04/22/2011 02:09:14 What Is Your Level Of Alcohol Consumption? Moderate 3 Shots A Day Information not available 11/10/2015 What Is Your Level Of Caffeine Consumption? None No Coffee- Diet Soda With Cocktails Information not available 11/10/2015 How Much Tobacco Do You Chew? None Information not available 12/20/2012 Are You Currently Employed? No [email or web address] Information not available 09/24/2021 What Type Of Diet Are You Following? REGULAR Information not available 12/20/2012 Which Illicit Or Recreational Drugs Have You Used? [employer] WORK ON CUTTING BACK ETOH, Information not available 09/08/2021 Education 12 [email or web address] Information no t available 03/21/2019 What Is Your Occupation? [employer] Information not available 12/20/2012 Have There Been Any Changes To Your Family Or Social Situation? No [email or web address] Information not available 09/24/2021 How Many Days In The Past Year Have You Had A Heavy Drinking Consumption (4+ Female, 5+ Male)? 0 Information not available 12/20/2012 Are There Any Guns Present In Your Home? No Information not available 12/20/2012 Live Alone Or With Others? Alone [email or web address] Information not available 03/21/2019 CSRP - Narcotics No Information not available 10/14/2011 CSRP Contract Signed And Discussed No [email or web address] Information not available 01/21/2015 Patient Has Health Care Proxy Signed And In Chart Yes [email or web address] Information not available 03/22/2019 CCM Consent Discussion 08/28/2024 [email or web address] Information not available 08/29/2024 Marital Status Informatio n not available 12/20/2012 Mosquito Repellent Used Routinely No [email or web address] Information not available 03/21/2019 What Was The Date Of Your Most Recent Tobacco Screening? 09/24/2024 Information not available 09/24/2024 How Many Children Do You Have? 2 Information not available 12/20/2012 What Is Your Current Pack Years? 30ormorepac eugenio [email or web address] Information not available 03/21/2019 Do You Use Your Seat Belt Or Car Seat Routinely? Yes [email or web address] Information not available 09/24/2021 Seat Belts Used Routinely Yes Information not available 12/20/2012 Are You Sexually Active? Yes Information not available 12/20/2012 Smoke Alarm In Home Yes Information not available 12/20/2012 How Much Tobacco Do You Smoke? 0.5 PPD [email or web address] Information not available 02/11/2023 What Types Of Sporting Activities Do You Participate In? None Information not available 12/20/2012 General Stress Level Medium Information not available 12/20/2012 Do You Use Any Illicit Or Recreational Drugs? Yes Information not available 09/08/2021 Do You Use Sunscreen Routinely? No Information not available 12/20/2012 Sex: Male Functional Status Question Answer Note LastModified by Organization D etails LastModified Time What is your exercise level? None [email or web address] Information not available 09/24/2021 Mental Status None recorded. Family History Relationship Description Onset Age of this Age Resolved Age Notes LastModified by Organization Details LastModified Time Mother Problem dBLOOD CLOT AFTER SURGER Y DBA_PATCH_[email or web address] Not available 07/09/2013 03:00:51 Father Problem dACCID NET/FA LL DBA_PATCH_ Not available 07/09/2013 03:00:51 Notes:sibs in good health Medical History Condition Response Osteoarthritis Y Immunizations Vaccine Type Date Status Note Provider Nam e and Address Organization Details Recorded Time Influenza, split virus, trivalent, preservative 3 completed Not Available [facility] 12/15/2019 02:28:48 Td(adult) unspecified formulation 1 completed Not Available [facility] 10/13/2011 05:22:52 Influenza, split virus, trivalent, preservative 4 completed Not Available [facility] 12/15/2019 02:19:21 Influenza, split virus, quadrivalent, PF 5 completed Not Available [facility] 12/15/2019 02:20:13 Influenza, high-dose, quadrivalent, PF 1 completed ESTHER Cornejo [address] [place], [address], [facility] 09/24/2021 11:00:24 Influenza, high-dose, trivalent, PF 4 completed Trev Sewell MD [address] [place], [address], [facility] 08/28/2024 16:21:43 COVID-19, mRNA, LNP-S, PF, 30 mcg/0.3 mL dose 1 [facility] 09:05:28 COVID-19, mRNA, LNP-S, PF, 30 mcg/0.3 mL dose 1 [facility] 08/28/2024 09:05:28 Tdap 3 [facility] 08/28/2024 09:05:28 Past Encounters Encounter ID Performer Location Encounter Start Date Encounter Closed Date Diagnosis/Indication Diagnosis SNOMED-CT Code Diagnosis ICD10 Code Diagnosis Note [id number] RICH WOODWARD, OFFICE [address] [place] [address] 05/26/2007 11:37:15 05/29/2007 08:10:13 [id number] CRISSY Lucia, OFFICE [address] [place] [phone] 02/22/2008 15:13:24 12/18/2008 02:02:29 [id number] CRISSY Lucia, OFFICE [address] [place] [address] 03/05/2008 16:51:41 12/18/2008 02:02:29 [id number] CRISSY [facility], OFFICE [address] [place] [address] 09/07/2010 12:01:47 09/10/2010 08:43:58 [id number] Physical Therapy, [address] [address] 09/14/2010 16:43:33 09/15/2010 13:57:34 [id number] Physical Therapy, [facility] [address] [facility] [place] [address] 09/17/2010 16:02:41 09/18/2010 10:21:00 [id number] Physical Therapy, [facility] [address] [facility] [place] [address] 09/22/2010 16:08:38 09/23/2010 11:20:24 [id number] Physical Therapy, [facility] [address] [facility] [place] [address] 09/24/2010 15:57:18 09/25/2010 10:19:26 [id number] , [facility], OFF[address] [facility] [place] [address] 09/28/2010 11:56:54 10/02/2010 10:36:59 [id number] , [facility], OFF[address] [facility] [place] [address] 10/26/2010 09:22:01 10/30/2010 13:30:11 [id number] , [facility], [address] [facility] [place] [address] 11/10/2010 09:14:39 11/12/2010 13:47:39 [id number] , [facility], OFF[address] [facility] [place] [address] 12/21/2010 09:54:03 12/24/2010 14:06:07 [id number] , [facility], OFF[address] [facility] [place] [address] 01/27/2011 14:03:04 02/03/2011 10:24:22 [id number] , [facility], OFF[address] [facility] [place] [address] 03/22/2011 09:16:59 03/24/2011 11:58:01 [id number] , [facility], [address] [facility] [place] [address] 06/02/2012 11:24:34 06/02/2012 14:02:43 [id number] , [facility], OFFICE [address] [place] [address] 08/08/2012 11:28:43 08/08/2012 11:57:01 [id number] Rigoberto Eckert MD , [facility], OFFICE [address] [place] [address] 09/12/2012 12:08:44 09/12/2012 12:49:03 [id number] MD CRISSY Mcgovern, [facility], [address] [place] [address] 12/13/2012 11:14:46 12/13/2012 11:59:25 [id number] , [facility], [address] [place] [address] 12/20/2012 11:28:59 12/20/2012 12:26:23 [id number] Fátima Kim NP , [facility], [address] [place] [address] 01/12/2013 10:38:07 01/12/2013 14:23:23 [id number] [facility] [address] [place] [address] 06/06/2014 13:58:37 06/06/2014 14:23:15 Urticaria [id number] d/c benadryl substitute hydroxyzin e. finish 4 days course of prednisone and can finish 7 days course of famotidine . call if hives not completely gone in a month [id number] TONY Chakraborty, [facility], [address] [place] [address] 09/04/2014 14:22:07 09/04/2014 15:07:03 Adult health examination [id number] see Risk Assessment and Lifestyle Change Counseling section above Counseling [id number] Neuralgia 74937947 traum tic to rib cage-- getting better- gabapentin prn Tobacco user 348825237 t ry nicotime replacemen t- try e-cigs Impotence 440174322 Influenza vaccine needed [id number] TONY Chakraborty, [facility], [address] [place] [address] 12/13/2014 08:26:27 12/16/2014 12:29:59 Ankle pain 276397042 Patient presents with 1-week duration of right foot swelling and pain. Pain involves both medial and lateral aspects of his ankle. 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 Initially evaluated at [facility] ER. Reports X-ray was negative. Given increased swelling and persistent pain, will check X-ray here to rule out radiograph ically occult fracture. Patient is able to weight bear, but significan t pain with ambulation . Prescribed Pneumatic Walking Boot and Vicodin prn for pain. Advised to keep the leg elevated and apply ice. Also recommende d NSAIDs use. Advised to contact the clinic if worsening symptoms. Will contact the patient after the formal interpreta tion by the radiologis t. Records requested from [facility] ER. Spent 25 minutes of face-to-fa ce time, greater than 50% was spent on counseling . [id number] TONY Chakraborty, [facility], [address] [place] [address] 01/09/2015 10:02:07 01/14/2015 09:31:09 Sprain of ankle 68291728 told could take another 1-2 months. wear air cast, use heat, ibuprofen. ifnot better in 1 month call for PT appt [id number] TONY Chakraborty, [facility], [address] [place] [address] 02/19/2015 10:13:38 02/20/2015 11:51:26 Foot pain 41676815 DJD of left first mtp joint r/o gout on tip of this. call prn [id number] Ivette WOODWARD, [facility], [address] [place] [address] 03/13/2015 10:05:56 03/14/2015 16:18:01 Benign paroxysmal positional vertigo 615368795 condition explained to pt and . If worse, call and he shoulde se physical therapy for canalith reposition ing exercises. [id number] TONY Petty, [facility], [address] [place] [address] 04/14/2015 10:08:12 04/14/2015 10:52:29 Tendinitis of knee 868188058 suprapatel lar tendonitis on left. tere wrap, heat, rest, call prn Benign par oxysmal positional vertigo 668642597 [id number] TONY Petty, [facility], [address] [place] [address] 08/01/2015 09:56:27 08/01/2015 11:40:57 Foot pain 47963577 Edema of foot 421019274 Gout 33962562 Assuming gout in left foot. x-ray showing severe DJD. Doesn't appear to be a cellulitis [id number] Ivette Casper , [facility], [address] [place] [address] 11/10/2015 15:52:13 11/13/2015 12:03:07 Adult health examination 631622823 Z00.00 see Risk Assessment and Lifestyle Change Counseling section above Counseling 059662479 Z71 .9 Tobacco user 108997720 Z 72.0 try nicotime replacemen t- desn't want to try prescripti on meds Osteoarthritis 921661381 M19.90 Impotence 987072976 N52. 9 Active or passive immunization 476534753 Z23 [id number] Carmen Colmenares, [facility], [facility] [address] [place] [address] 08/04/2016 13:47:38 08/10/2016 03:45:42 Hypermetropia 25261219 H52.03 Dry eyes 323223138 H04.1 29 AT con, pt ed. [id number] Garcia Boateng PA-C , [facility], OFF[address] [place] [address] 03/21/2019 08:34:54 03/21/2019 09:25:49 Adult health examination 269748985 Z00.00 Refer to discussion section for complete summary of visit. Depression screening 171 605829 Z13.89 depression screening tool administer ed, entered into emr, scored and discussed, time greater than 7.5 minutes Counseling 326235934 Z71 .9 Tobacco user 898811496 Z 72.0 Discussed and encourage smoking cessation. Patient contemplat ing but not ready. Encourage follow up if needing assistance with this.> 30 PPD - Qualifies for LDCT scan of lungs. Screening for malignant neoplasm of colon 018088814 Z12.11 Referral for a DIRECT booked colonoscop y. Essential hypertension 11730862 I10 Controlled . Per JNC8 goal for BP; < 150/90. Controlled with diet and excercise. At the moment, will hold off on medication . Mixed hyperlipidemia 267 462173 E78.2 ASCVD score >10 and 40 PPD hx. DIscussed medication and started on and side effects handout given. Neuralgia 51405244 M79.2 Medication s refilled. Been on usp and tolerating well. Cramp 97203330 R25.2 Cramps of chest; Would like to monitor - most like seems msk in origin. Recommende d Ice and heat and stretching . [id number] Fernanda Carrasco LPN , [facility], OFFICE [address] [place] [address] 04/09/2019 11:07:32 04/09/2019 11:49:02 Cigarette smoker 42436339 F17.210 Patient is not interested in quitting smoking at this time.Helena reyes quit Works program.Gonzalez quitters win program.Esther arango declines nicotine replacemen t at this time. Chest pain 45777754 R07. 9 Patient reports 1 single episode of chest pain which lasted seconds and spontaneou sly resolvedHa s not had chest pain since.EKG done and reviewed, no acute [place] or ischemia notedVital signs are stablePati ent in NADDiscuss ed modifying diet and possible use of simethicon e for gas reliefWill repeat BMP as patient has had elevated potassium levels. Kidney function is stable. Not currently taking medication s which increase potassium levelInstr ucted patient on symptoms of acute [place]: chest pain unrelieved elephant sitting on my chest , radiating pain to arm or jaw, sweating, weaknessPa tient instructed to go to call EMS and got to ER if having these symptoms [id number] ESTHER Cornejo FP, [facility], [address] [place] [address] 10/30/2020 08:12:17 10/30/2020 10:04:09 Cigarette smoker 69461781 F17.210 - smoking 1/2 ppd, ready to reduce- interested in trying nicotrol, sent to pharmacy Tobacco user 244648320 Z 72.0 Neuralgia 07988167 M79.2 Rib pain 863512798 R07.8 1 - left sided rib pain s/p fall 2 weeks ago, improving, likely contusion- will defer imaging for now- continue conservati ve measures: rest, ice/heat 20min on/off, alternativ e tylenol/ib uprofen for pain, gentle stretching exercises as tolerated- call for persistent symptoms Hot sweats 262764793 R61 - ongoing stable hot/cold sweats starting around abdomen radiating inferiorly x1.5 years- reassuranc e given last labs 04/2020 WNL, no evidence of kidney impairment in past labs, will recheck [id number] ESTHER Cornejo , [facility], [address] [place] [address] 09/08/2021 13:31:51 09/09/2021 14:56:52 Pre-surgery evaluation 946603769 Z01.818 - pt presenting for pre-op physical; left callus removal scheduled for 10/[address] Mcclure- EKG showing sinus rhythm with evidence of stable left atrial enlargemen t, no sig changes from prior EKG in 2019- Revised Cardiac Risk Index (RCRI): score 0, class I, 0.4% risk, low risk for upcoming foot surgery Cigarette smoker 6672155 7 F17.210 - smoking 1/2 ppd, wants to reduce- encouraged to restart nicotrol- discussed low dose CT lung screening, he will think about this prior to his wellness visit Tobacco user 173424733 Z 72.0 Cholesterol screening 27 5206588 Z13.220 - labs prior to wellness visit- rec to restart statin Benign ess ential hypertension 7695663 I10 - BP not at goal today, mildly elevated on recheck- not currently on any medication s, has been controlled with diet/exerc ise- will plan on wellness visit within the next month and reassess at that time [id number] ESTHER Cornejo FP, [facility], OFF[address] [place] [address] 09/14/2021 13:28:59 09/15/2021 10:07:04 Cigarette smoker 64304155 F17.210 - smoking 1/2 ppd, restarted nicotrol- prefers to discuss CT screening more at upcoming wellness visit Tobacco user 070153849 Z 72.0 Dizziness 686744370 R42 - resolved since onset- suspect vertigo based on history/pt declined elmira hallpike today- EKG from recent pre op reassuring - will check labs and forward to surgeon's office, okay to proceed with surgery if symptoms resolved and labs unremarkab le- rec increasing fluids, avoid sig bending/fa st head position changes- call with any new/worsen ing symptoms Essential hypertension 05888796 I10 - BP still elevated, recheck unfortunagiancarlo wooy not completed today but historical ly has been lower on second reading- will reassess at upcoming wellness visit [id number] ESTHER Cornejo FP, C, OFF[address] [place] [address] 09/24/2021 10:01:06 09/25/2021 10:08:41 Adult health examination 074826491 Z00.00 Counseling 339609020 Z71 .9 Cardiovasc ular risk reduction was discussed including benefits and risks of aspirin, exercise goals, healthy eating and healthy weight . Discussion greater than 7.5 minutes. Depression screening 171 332883 Z13.31 depression screening tool administer ed, entered into emr, scored and discussed, time greater than 7.5 minutes Screening for alcohol abuse 518286533 Z13.39 An audit alcohol screening test was performed and scored. Patient was asked about alcohol use, advised about risks of alcohol, and personal risk was assessed, patient agreed to plan and given informatio n about available resources if needed. Discussion including screening and scoring greater than 7.5 minutes Essential hypertension 37936935 I10 ideal goal <130/80, 140/70 todayrecen tly got home cuff, encouraged regular checks with logging/sh eets venita arrange for BP clinic check, if no spots available will make office visit Mixed hyperlipidemia 267 167552 E78.2 LDL improving on statin, continueDi scussed methods of lowering cholestero l including diet/exerc ise (diet low in saturated and trans fats, high in whole grains, vegetables , fruits and lean protein such as chicken, fish, beans and tofu), red yeast rice, increasing fiber intake (Konsyl Metamucil) , fish oil supplement (pure encapsulat ions). Cigarette smoker 1948240 7 F17.210 smoking 1/2 ppd, restarted nicotrolin terested in low dose CT and AAA screening Tobacco user 993788590 Z 72.0 Active or passive immunization 613020851 Z23 [id number] DAVID AGARWAL NP FP, [facility], OFF[address] [place] [address] 10/28/2022 11:41:56 11/02/2022 12:59:41 Essential hypertension 21892570 I10 -significa ntly elevated x 3 today-prio r readings in office have been elevated, but not so significan tly-he does appear quite anxious today-he has a monitor at home, have encouraged him to call back later with home readings, if no call back, will reach out tomorrow Laceration of head 63111 8000 S01.91XA -area washed with normal saline, wound is closed and scabbed over, no evidence of infection- applied bacitracin -patient cleared to shower-adv ised close monitoring , may return to care for recheck of the area as he does not live witout anyone who can check it for him [id number] ESTHER Cornejo , [facility], [address] [place] [address] 02/11/2023 08:09:11 02/11/2023 09:54:02 Cerebrovascular accident [id number] I63.9 hospitaliz ed 01/28/23 - 02/04/23, admission/ discharge notes revieweddo ing well overallbac k on daily statincont inues with PT 3x weeklyson checking in on him, otherwise lives alone Essential hypertension 31772818 I10 BP at goal <130/80 at home, above in officewill have staff outreach next week for home BP check, if still above goal will increase amlodipine to 5mg dailylabs prior to next visit Mixed hyperlipidemia [id number] E78.2 back on daily statinlabs prior to next visit Tobacco user 385857084 Z 72.0 We discussed your smoking today for more than 3 minutes. Cigarette use is the leading cause of preventabl e disease, disability , and in the [place]. We talked about tools and medication s available to help you in smoking cessation. We discussed utilizing our smoking cessation assistant women's soccer coach and online resources. Your personal goal: quit! currently at 1/2 pack every couple days Carotid ar carol stenosis 49958619 I65.29 80% stenosis of right coronary arteryon plavix, aspirinrec ommended to have outpatient endarterec jill, he has the informatio n to call his vascular provider for outpatient f/u - he agrees to schedule this, he wants the procedure Active or passive immunization 245048831 Z23 reminded Left hemiplegia [id number] 8 G81.94 residual s/p CVA above, very mild at this timeinstru cted not to drive x6 weeks, will plan on f/u around that time (03/18/23) to reassess, he will bring any DMV form needed at that timeno devices needed for ambulation [id number] Trev Sewell MD , [facility], [address] [place] [address] 08/28/2024 08:24:39 08/28/2024 17:34:53 Adult health examination 154813280 Z00.00 will get labs today Depression screening 171 098433 Z13.31 depression screening tool administer ed Screening for alcohol abuse 519967282 Z13.39 Alcohol use screening tool administer ed Nicotine dependence 5629 4008 F17.200 We discussed your smoking/va ping today for more than 3 minutes.Sm oking tobacco is the leading cause of preventabl e disease, disability , and in the [place]. Inhaling aerosolize d nicotine is widely believed to be safer than combustibl e tobacco, but still exposes people to numerous harmful substances , heavy metals like lead, and cancer-cau sing agents. Nicotine is harmful to developing brains and can disrupt the formation of brain circuits that control attention, learning, and susceptibi lity to addiction. We talked about tools and medication s available to help you in smoking/va ping cessation. We discussed utilizing our smoking cessation assistant women's soccer coach and online resources. Your personal goal: not ready to quit, declined any interventi on to stop smoking, agreed with LDCT screening Advance di rective discussed with patient 347334718 Z71.89 Advanced Care Planning1. Advanced care planning was discussed for {{less than* more than}} 15 minutes. 2. Participan ts included {{patient* patient and family pat ient's family pat ient's surrogate} } and they were given an opportunit y to decline discussion . 3. Health Care Proxy {{was* was not}} discussed. 4. Patient {{has* has not}} completed Health Care Proxy form. {{It was It was not}} given to take home. 5. Names(s) relationsh ip(s) of Health Care Proxy: 6. MOLST {{was* was not}} discussed. 7. Patient {{has has not*}} completed MOLST form. will discuss with family. 8. Details of discussion : 9. Follow up needed: Neuralgia 25914140 M79.2 effective, refill given, advised pt to call his insurance for mail order if it is covered. Cerebrovas cular accident [id number] I63.9 refilled meds for ptblood pressure is not at goal of less than 130/80 due to non-adhere nce, will return for f/u with PCP in 2 weeks. Active or passive immunization 288647196 Z23 Flu: Declines 08/28/24 as TD: Declines 08/28/24 Screening for malignant neoplasm of colon 692703459 Z12.11 adenomatou s polyps in 2012, overdue Poor stream of urine 162 314626 R39.[address] Field at [facility] Alcohol dependence 15472 003 F10.20 discussed a plan for taper - started drinking 10 yrs ago, does not want any interventi ondrinks 3 glasses of vodka and coke daily; agrees with tapering on his own, will start with 2.5 glasses per day and follow up with PCP in 2 weeks Essential hypertension 46013971 I10 was on amlodipine 2.5 mg daily but not at goal due to non-adhere nce, refilled meds and f/u in 2 weeks. with PCP Carotid ar carol stenosis 12143459 I65.29 needs a follow up with Dr Carrero, vascular specialist at [facility], pt will make an appt. [id number] ESTHER Cornejo , [facility], [address] [place] [address] 09/24/2024 12:12:31 09/24/2024 12:47:32 Nicotine dependence 44523180 F17.200 We discussed your smoking/va ping today for more than 3 minutes.Sm oking tobacco is the leading cause of preventabl e disease, disability , and in the [place]. Inhaling aerosolize d nicotine is widely believed to be safer than combustibl e tobacco, but still exposes people to numerous harmful substances , heavy metals like lead, and cancer-cau sing agents. Nicotine is harmful to developing brains and can disrupt the formation of brain circuits that control attention, learning, and susceptibi lity to addiction. We talked about tools and medication s available to help you in smoking/va ping cessation. We discussed utilizing our smoking cessation assistant women's soccer coach and online resources. Your personal goal: continue working on cutting back. LDCT ordered 08/28/24 Active or passive immunization 972741038 Z23 reminded Screening for malignant neoplasm of colon 206179149 Z12.11 GI referral sent 08/28/24 Cerebrovas cular accident 239510519 I63.9 hospitaliz ed 01/28/23 - 02/04/23rec ent CT in hospital negative for acute changeson daily statinson checking in on him, otherwise lives alone Carotid ar carol stenosis 59202315 I65.29 80% stenosis of right coronary arteryon plavix, aspirinwas recommende d by vascular to have outpatient endarterec jill and he's interested in this; contact informatio n for vascular surgeon provided again today History of fall 08235566 9 Z91.81 hospital notes reviewedla ceration on L scalp closed with 6 staplesCT head and cervical spine WNLhealing well, bee removed today without issueretur n as needed Removal of bee 49662 001 Z48.02 as above Alcohol abuse 70293888 F 10.10 having a few drinks per dayon B-1 and folic acid supplement s, asking to d/c theserec to recheck labs firstf/u 1 month as below Essential hypertension 96504002 I10 BP above goal todayrec to increase amlodipine to 5mg (2 tabs of his 2.5mg dose)f/u 1 month to reassess/c heck in, sooner as needed Dry skin dermatitis 2600 62312 L85.3 discuss OTC options, consider antifungal if not helping, he declines script for this at this time. 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 recommend Systane Ultra lubricatin g drops 2-4 times per day. may use systane night time gianfranco qhs. 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 IOP wnl. ONH appear healthy. recommend annual check. Bilateral senile ectropion of lower eyelids 0560760137 2449543 H02.135 H02.132 ectropion OU. pt ed. recommend gianfranco qhs/AT 2-4 x per day. offered consult with ophthalmol ogist. declines for now. Health Concerns Section Related Observation LastModified by Organization Detai ls LastModified Time None Recorded Concern Status LastModified by Organization Details LastModified Time None Recorded Advance Directives Directive None Recorded Payers Encounter Date Sequence Insurance Name Policy Number Policy Kyle Covered Member ID Kyle Member ID Guarantor Name 10/28/2022 2 [place]IOR [place] 2023 - [facility] (MEDICAID) Castillo Dempsey Jr [id number] Castillo Dempsey 10/28/2022 1 [place] [employer] Castillo Dempsey Jr [id number] Castillo Dempsey 02/11/2023 2 [place] 2023 - [facility] (MEDICAID) Castillo Dempsey Jr [id number] Castillo Dempsey 02/11/2023 1 [place] [employer] Castillo Dempsey Jr [id number] Castillo Dempsey 08/28/2024 1 [place] Castillo Dempsey Jr [id number] Castillo Dempsey 09/24/2024 1 [place] Castillo Dempsey Jr [id number] Castillo Dempsey 10/02/2024 1 [place] [employer] Castillo Dempsey [id number] Castillo Dempsey Notes Date Note Type Note Provider Name and Address Organization Details Recorded Time 10/28/2022 text/html 10/28/22wound ch faustino above R ear/back of head -injury occurred 2 days ago-hit his head on a sealed can of soup that was on the floor-bled heavily when he hit it, took 20 minutes to stop bleeding-no LOC-not on any blood thinners-painful to touch the area, no other headaches -denies headache, chest pain, nausea/vomiting, feeling unwell DAVID AGARWAL NP [address] [place], [address], [facility] 10/28/2022 12:28:38 02/11/2023 text/html a/vmg-smoking [id number] bypatient.Notes:eitan aguilera at 1/2 pack every couple daysusing nicotrol as needed 02/11/23-67 yo M presents for TCMS f/u.Patient discharged from [facility] to home following hospitalization 01/28/23 - 02/04/23 s/p CVA. Per discharge summary, he originally presented to ER with left upper and lower extremity weakness and numbness, as well as mild speech difficulties. CTA of head and neck showed 80% stenosis of the right internal carotid artery. (Atorvastatin 80 mg daily started) It also was noted that hospital alcohol cessation was recommended due to his daily alcohol use (No signs of withdrawal were noted during his stay). voice - off x5-6 days, improved back to baseline with speech therapyrec no driving x6 weekssome left sided arm weakness but [id number] year until back to baseline if he'll get therePT 3x weeklyat home alone, friend helping him get around until he can driveson checking in on him as well ESTHER Cornejo [address] [place], [address], [facility] 02/11/2023 08:54:50 08/28/2024 text/html Risk Assessment and Lifestyle Change Counseling (Medicare)Reported bypatient.Coronary Artery Disease Risk Assessment:No Family history of coronary artery disease; No personal history of diabetes; No history of peripheral vascular disease, AAA, or carotid disease; No personal history of coronary artery disease Breast Cancer Risk Assessment:No family history of breast cancer; No history of breast cancer or dcis Colon Cancer Risk Assessment:No family history of pre cancerous colon polyps or cancer; Patient has low risk for colon cancer Lung Cancer Risk Assessment:Current smoker; No asbestos exposure Fracture Risk Assessment:No unexplained fracture; balance is normal (with a cane); No use of corticosteroids; No anti-seizure medication; Has adequate calcium intake; Taking Vitamin D supplement; No chronic use of proton pump inhibitors; Patient has higher than average risk for osteoporotic bone fractures Cognitive/Behavioral Risk Assessment:No personal history of mental illness; No family history of mental illness; Do you or anyone else have concerns about your memory? no; Alcohol use counseled greater than 7.5 minutes; Tobacco use counseled 3-10 minutes Safety Risk Assessment:Has grab bars in bathroom; Has rails on steps;History of falls 1-3 in past 12 months; No evidence of abuse/neglect Functional Status:Patient does not have trouble hearing the television or radio when others do not.; Patient does not have to strain or struggle to hear/understand conversations; Patient does not need help with preparing meals, transportation, shopping, taking medicine, managing finances, or other activities of daily living.; Patient does not have visual loss that interferes with daily activities;Lives alone; Patient was not unsteady and did not take longer than 30 seconds during the timed get up and go test.;Patient reports 1 falls in the past 6 months. Diet:Counseled about eating a diet low in trans and saturated fats and high in fiber, fruits and vegetables; Counseled about appropriate calcium intake and good dietary sources of calcium.; Counseled about decreasing salt in diet; Discussed the value of a Mediterranean diet , and eating more fruits and vegetables Exercise counseling:Discussed the importance of daily physical activity; Discussed the importance of weight bearing exercise Safety:Counseled about protecting skin from the sun and lowering the risk of skin cancer The provider and patient discussed the Chronic Care Management program, including the services provided, and any fees associated with them. still smoking 3 cig per day - agreeable for LDCTran out of all meds 1 week ago but not sure what they arept states he will get labs today Trev Sewell MD [address] [place] [address], [phone], [facility] 08/28/2024 16:33:09 09/24/2024 text/html a/vmg-smoking [id number] bypatient.Notes:aditi nues to smoke 2-3 cigs/day. 09/24/24-here for BP check and staple removal recently got housing in [facility] in white socks in kitchen and feet slipped from under him when approaching [facility] and hit head [facility]did not lose consciousnessgot 6 bee placed in ER to L scalp 09/07/24CT was negfeels well since, no dizziness, confusion also mentions past week hands itchy, red, dry, crackingusing lubriderm with some reliefno fevers, bleeding. asking if he can stop any medications ESTHER Cornejo [address] [place] [address], [phone], [facility] 09/24/2024 14:51:47 10/02/2024 text/html PAULA 2016. No Va complaints. Pt is bothered by occasional watery OU. tearing, OU, intermittent. no eye pain. Carmen Colmenares, OD [address] [place] [address], [phone], [facility] 10/02/2024 17:46:35
== END 2025-01-18 09:25 | disposition home or self-care (01) ==
PROVIDERS: PCP Physician Assistant; Visit Provider Nurse Practitioner Family
DX: Z01.818 Encounter for other preprocedural examination (principal); Z12.11 Encounter for screening for malignant neoplasm of colon
CPT/HCPCS: 99024

== ENCOUNTER → 2025-01-18 08:46 | Outpatient (BNVA) | payer MEDICARE, SELFPAY | PROVIDERS: PCP Physician Assistant; Visit Provider Nurse Practitioner Family | DX: Z12.11 Encounter for screening for malignant neoplasm of colon (principal) | CPT/HCPCS: 99212 ==